=== PATIENT | female | born 1960 | race Caucasian/White ===

== ENCOUNTER → 2018-02-28 08:52 | Outpatient (CLI) | payer BC, SELFPAY ==
--- NOTE | 2018-02-28 09:00 | US_ITS ---
US extremity RT limited CLINICAL INDICATION: ITS.REASON: RT AXILLARY MASS ORDERING PHYSICIAN: Marylu Jeter PATIENT AGE: 57 years Comparison: None FINDINGS: Ultrasound performed of the palpable left amount in right axillary region demonstrating a 4 mm subcutaneous cystic area with enhanced through transmission of sound. This is nonspecific. No other significant anomalies are evident. IMPRESSION: Small subcutaneous cystic lesion corresponding to the palpable abnormality in the right breast measuring 4 mm
== END ==
PROVIDERS: Family Provider Family Medicine; PCP Nurse Practitioner Family; Visit Provider Nurse Practitioner Family
DX: R22.31 Localized swelling, mass and lump, right upper limb (principal)
CPT/HCPCS: 76882

== ENCOUNTER → 2018-08-30 07:27 | Outpatient (CLI) | payer BC, SELFPAY ==
[2018-08-30 08:35] LABS: Basophils # 0.1 K/mm3 (0-0.2); Basophils % 0.9 % (0.1-2.0); Eosinophils # 0.1 K/mm3 (0.0-0.4); Eosinophils % 1.7 % (0.1-12.0); Hematocrit 49.9 % (37.0-47.0); Hemoglobin 16.4 g/dL (12.2-16.2); Lymphocytes # 1.8 K/mm3 (0.7-4.5); Lymphocytes % 23.9 % (10-50); Mean Corpuscular HGB Conc 32.8 g/dL (31.8-35.4); Mean Corpuscular Hemoglobin 30.9 pg (27.0-31.2); Mean Corpuscular Volume 94.2 fl (81-99); Monocytes # 0.5 K/mm3 (0.1-1.0); Monocytes % 6.9 % (1.7-9.3); Neutrophils % 66.7 % (37.0-80.0); Platelet Count 284 K/mm3 (142-424); Red Cell Distribution Width 12.9 % (11.5-17.5); White Blood Count 7.5 K/mm3 (4.8-10.8)
[2018-08-30 10:32] LABS: Alanine Aminotransferase 49 U/L (12-78); Albumin Level 4.1 gm/dL (3.4-5.0); Albumin/Globulin Ratio 1.2 (1.1-1.8); Alkaline Phosphatase 89 U/L (46-116); Anion Gap 15.3 mEq/L (5-15); Aspartate Amino Transferase 31 U/L (15-37); Bilirubin,Total 0.5 mg/dL (0.2-1.0); Blood Urea Nitrogen 13 mg/dL (7-18); Calcium 9.5 mg/dL (8.5-10.1); Carbon Dioxide 24 mmol/L (21.0-32.0); Chloride 104 mmol/L (98-107); Chol/HDL Ratio 3.4 (1-3.5); Cholesterol 242 mg/dL (140-200); Creatinine,Serum 0.76 mg/dL (0.55-1.02); Estimated Glomerular Filt Rate 78 ml/min (>60); Free Thyroxine Index 2.7 ug/dL (5.93-13.13); GFR (African American) 95 ML/MIN (>60); Globulin 3.3 gm/dl (1.3-3.2); Glucose 106 mg/dL (74-106); HDL Cholesterol 71 mg/dL (29-89); LDL Cholesterol 158 mg/dL (0-130); Potassium 4.3 mmoL/L (3.5-5.1); Sodium 139 mmol/L (136-145); T4 (Thyroxine) 8.1 ug/dl (4.7-13.3); Thyroid Stimulating Hormone 0.58 uIU/ml (0.358-3.740); Total Protein,Serum 7.4 gm/dL (6.4-8.2); Triglycerides 64 mg/dL (30-200); Triiodothryronine (T3) Uptake 33 % (31-39); VLDL Cholesterol 13 mg/dL (0-40)
[2018-08-31 11:16] LABS: Vitamin D 25 Hydroxy 21.7 ng/mL (30.0-100.0)
== END ==
PROVIDERS: Visit Provider Nurse Practitioner Obstetrics & Gynecology
DX: Z01.419 Encounter for gynecological examination (general) (routine) without abnormal findings (principal); R53.82 Chronic fatigue, unspecified; E55.9 Vitamin D deficiency, unspecified
CPT/HCPCS: 36415; 80053; 80061; 82652; 84436; 84443; 84479; 85025

== ENCOUNTER → 2018-12-22 16:43 | Outpatient (CLI) | payer BC, SELFPAY ==
--- NOTE | 2018-12-22 16:56 | XR_ITS ---
XR elbow RT min 3V HISTORY: ITS.REASON: RT ELBOW PAIN ORDERING PHYSICIAN: Marylu Jeter APRN PATIENT AGE: 58 years COMPARISON: None FINDINGS: No acute fracture or dislocation. Minimal spurring is present at the distal humerus between the capitellum and trochlea. No displaced fat. . IMPRESSION: Minimal degenerative change, no acute finding
--- NOTE | 2018-12-22 16:56 | XR_ITS ---
XR shoulder LT min 2V HISTORY: ITS.REASON: ACUTE PAIN LT SHOULDER ORDERING PHYSICIAN: Marylu Jeter APRN PATIENT AGE: 58 years Comparison: None FINDINGS: No fracture or dislocation. No lytic or blastic change. There is normal mineralization. Mild osteoarthritic changes are present at the glenohumeral joint. There is some cortical irregularity of the humeral head along the anterior aspect of the greater tuberosity nonspecific but could be seen with rotator cuff disease. IMPRESSION: Mild degenerative change, no acute finding
--- NOTE | 2018-12-22 16:58 | XR_ITS ---
EXAM: XR cervical spine 5V HISTORY: ITS.REASON: UPPER EXTRIMITY WEAKNESS ORDERING PHYSICIAN: Marylu Jeter APRN PATIENT AGE: 58 years COMPARISON: None FINDINGS: Normal alignment. No fracture or dislocation. No lytic or blastic change. No significant degenerative change. The disc spaces are preserved. No foraminal narrowing. There is minimally longitudinal ligament calcification in the lower cervical spine IMPRESSION: Negative cervical spine
== END ==
PROVIDERS: PCP Nurse Practitioner Family; Visit Provider Nurse Practitioner Family
DX: M25.512 Pain in left shoulder (principal); M25.521 Pain in right elbow; M54.2 Cervicalgia; R29.898 Other symptoms and signs involving the musculoskeletal system
CPT/HCPCS: 72050; 73030; 73080

== ENCOUNTER → 2019-04-20 13:49 | Outpatient (CLI) | payer BC, SELFPAY ==
--- NOTE | 2019-04-20 14:03 | XR_ITS ---
PROCEDURE: XR CHEST 2V CLINICAL HISTORY: MUSCLE STRAIN Pain COMPARISON: CXR CHEST(2 VIEWS-NOT PORTABLE) from 12/20/[address] [facility] [address] CHEST W/O CONTRAST from 04/08/2017 FINDINGS: The cardiomediastinal silhouette and pulmonary vascularity are within normal limits. COPD. Old granulomatous disease No acute bony abnormalities. IMPRESSION: No acute findings. Dictated by: Ben Rose MD 04/20/2019 16:05 Signed by: <Electronically signed by Ben Rose MD in [place]> 04/20/2019 16:05
== END ==
PROVIDERS: PCP Nurse Practitioner; Visit Provider Nurse Practitioner
DX: S29.011A Strain of muscle and tendon of front wall of thorax, initial encounter (principal); T14.8XXA Other injury of unspecified body region, initial encounter
CPT/HCPCS: 71046

== ENCOUNTER → 2019-06-29 14:34 | Outpatient (CLI) | payer BC, SELFPAY ==
[2019-06-29 14:52] LABS: Basophils # 0.1 K/mm3 (0-0.2); Basophils % 0.4 % (0.1-2.0); Eosinophils # 0.1 K/mm3 (0.0-0.4); Eosinophils % 0.8 % (0.1-12.0); Hematocrit 41.7 % (37.0-47.0); Hemoglobin 14.4 g/dL (12.2-16.2); Lymphocytes # 2.4 K/mm3 (0.7-4.5); Lymphocytes % 17.6 % (10-50); Mean Corpuscular HGB Conc 34.6 g/dL (31.8-35.4); Mean Corpuscular Volume 92.7 fl (81-99); Mean Platelet Volume 7.7 fl (7.4-10.4); Monocytes # 0.7 K/mm3 (0.1-1.0); Monocytes % 5.2 % (1.7-9.3); Neutrophils # 10.5 K/mm3 (1.8-7.8); Platelet Count 293 K/mm3 (142-424); Red Cell Distribution Width 12.7 % (11.5-17.5); White Blood Count 13.9 K/mm3 (4.8-10.8)
[2019-06-29 14:54] LABS: Blood Urea Nitrogen 12 mg/dL (7-18); Creatinine,Serum 0.64 mg/dL (0.55-1.02); Estimated Glomerular Filt Rate 96 ml/min (>60); GFR (African American) 116 ML/MIN (>60)
--- NOTE | 2019-06-29 15:01 | CT_ITS ---
PROCEDURE: CT SOFT TISSUE NECK WO/W CON CLINICAL HISTORY: throat pain- enlarged salivary gland Bilateral jaw all and throat pain, enlarged salivary gland COMPARISON: No exams were available for comparison TECHNIQUE: Oral Contrast: 75ml Optiray 350 IV Contrast: None Axial images obtained with sagittal and coronal reformats. All CT scans at the facility use one or more dose reduction, viz: automated exposure control, ma/kV adjustment per patient size (including targeted exams where dose is matched to indication, i.e. head), or iterative reconstruction technique. FINDINGS: No obvious nasopharyngeal hypo pharyngeal or or pharyngeal mass. The epiglottis and glottic region have an unremarkable appearance. There is mild prominence of the mucosa bilaterally at the nasopharyngeal area and may be due to mild lymphoid hyperplasia. There is a small area of air density in the left parapharyngeal region at the junction of the nasopharynx and oral pharynx and may be due to small diverticulum. An abscess is felt to be less likely as there are no inflammatory changes at this region. Follow-up suggested to confirm stability. Scattered small nodes are present in the neck with no dominant adenopathy. The parotid glands and salivary glands have an unremarkable appearance mid. No obvious sialolith. Several small nodules are present in the thyroid gland on both sides. These are less than 1 cm. Upper thoracic images show centrilobular emphysema. IMPRESSION: 1. Small air collection in the left parapharyngeal region medial to to the medial pterygoid muscle which could be due to small diverticulum of the pharynx. Follow-up suggested to confirm stability. An abscess is felt to be less likely as there is no underlying inflammatory change. 2. Centrilobular emphysema in upper chest. Dictated by: Ben Rose MD 07/03/2019 06:56 Electronically signed by Ben Rose MD in [place] 07/03/2019 06:56
== END ==
PROVIDERS: PCP Nurse Practitioner Family; Visit Provider Otolaryngology
DX: K11.1 Hypertrophy of salivary gland (principal); R07.0 Pain in throat
CPT/HCPCS: 36415; 70492; 82565; 84520; 85025; Q9967

== ENCOUNTER → 2019-07-12 13:46 | Outpatient (CLI) | payer BC, SELFPAY ==
--- NOTE | 2019-07-12 13:50 | XR_ITS ---
PROCEDURE: XR RIBS LT MIN 3V W CXR1V CLINICAL INDICATION: LT RIB PAIN COMPARISON: CXR CHEST(2 VIEWS-NOT PORTABLE) from 12/20/[address] [facility] [address] CHEST W/O CONTRAST from 04/08/2017 XR CHEST 2V from 04/20/2019 FINDINGS: A frontal view of the chest shows no acute finding. There is evidence of old granulomatous disease. Multiple views of the left ribs show no acute fracture or dislocation. No lytic or blastic change. IMPRESSION: No acute findings. Dictated by: Ben Rose MD 07/12/2019 14:16 Electronically signed by Ben Rose MD in [place] 07/12/2019 14:16
--- NOTE | 2019-07-12 13:50 | XR_ITS ---
PROCEDURE: XR THORACIC SPINE 3V CLINICAL INDICATION: RT SIDE THORACIC PAIN COMPARISON: [facility] CT CHEST W/O CONTRAST from 04/08/2017 FINDINGS: There is mild thoracic kyphosis with mild multilevel wedge compression changes from T7 to T12 with multilevel degenerative disc disease and endplate hypertrophic change. No acute fracture or dislocation evident. The kyphosis and mild multilevel wedging has slightly increased since 04/08/2017. No lytic or blastic change. IMPRESSION: Kyphosis with multilevel degenerative changes with mild wedging of the lower thoracic vertebral bodies. MRI may provide further evaluation to determine if the wedging is acute upon chronic Dictated by: Ben Rose MD 07/12/2019 14:15 Electronically signed by Ben Rose MD in [place] 07/12/2019 14:15
== END ==
PROVIDERS: PCP Nurse Practitioner Family; Visit Provider Nurse Practitioner Family
DX: M54.6 Pain in thoracic spine (principal); R07.81 Pleurodynia
CPT/HCPCS: 71101; 72072

== ENCOUNTER → 2019-07-23 14:57 | Outpatient (CLI) | payer BC, SELFPAY ==
--- NOTE | 2019-07-23 15:00 | MR_ITS ---
PROCEDURE: MR THORACIC SPINE WO CON CLINICAL INDICATION: CLOSED WEDGE FX OF THORACIC VERTEBRA Right-sided mid back pain COMPARISON: XR THORACIC SPINE 3V from 07/12/2019 TECHNIQUE: Routine multiplanar multi echo sequences are performed without gadolinium enhancement. FINDINGS: There is kyphosis of the thoracic spine. There is decrease in height anteriorly of T7, T8, T9, T10, and T11. There is no evidence of acute compression fracture. There is slight increase in T2 signal along the inferior and anterior endplate of T10 however, this does not have typical appearance for a compression fracture and is consistent with type 2 endplate changes. There is mild multilevel degenerative disc disease from T7-T12. no bony destructive process. There is very minimal left paracentral disc protrusion at T9-T10 and may be due to small osteophyte. Minimal bulging of the disc noted at T10-T11. No extruded herniated disc evident. No paraspinal mass. IMPRESSION: 1. No acute fracture. 2. Degenerative changes in the lower thoracic spine with mild kyphosis. Please see above for detail Dictated by: Ben Rose MD 07/24/2019 14:37 Electronically signed by Ben Rose MD in [place] 07/24/2019 14:37
== END ==
PROVIDERS: PCP Nurse Practitioner Family; Visit Provider Nurse Practitioner
DX: S22.000A Wedge compression fracture of unspecified thoracic vertebra, initial encounter for closed fracture (principal)
CPT/HCPCS: 72146

== ENCOUNTER → 2019-09-19 08:21 | Outpatient (CLI) | payer BC, SELFPAY ==
--- NOTE | 2019-09-19 08:36 | US_ITS ---
PROCEDURE: US ABDOMEN LIMITED CLINICAL INDICATION: EPIGASTRIC PAIN,ABD PAIN COMPARISON: No exams were available for comparison FINDINGS: PANCREAS: Unremarkable. No obvious mass or abnormal fluid collection. No ductal dilatation LIVER: No focal liver lesions demonstrated. Homogeneous echogenicity. No intrahepatic biliary ductal dilatation evident. There is appropriate direction of blood flow within a non dilated portal vein RIGHT KIDNEY: Unremarkable. Normal size and echogenicity. No hydronephrosis GALLBLADDER: No gallstones, gallbladder wall thickening, pericholecystic fluid, or biliary dilatation. IMPRESSION: Unremarkable limited abdominal ultrasound as detailed above disc Dictated by: Ben Rose MD 09/19/2019 17:04 Electronically signed by Ben Rose MD in [place] 09/19/2019 17:04
== END ==
PROVIDERS: PCP Nurse Practitioner Family; Visit Provider Nurse Practitioner
DX: R10.13 Epigastric pain (principal); R10.11 Right upper quadrant pain
CPT/HCPCS: 76705

== ENCOUNTER → 2020-02-22 08:58 | Outpatient (CLI) | payer BC, SELFPAY ==
--- NOTE | 2020-02-22 09:01 | XR_ITS ---
PROCEDURE: XR HIP RT 2-3V W/PELVIS CLINICAL INDICATION: INJURY OF RT HIP 3 weeks ago, still having PAIN COMPARISON: No exams were available for comparison FINDINGS: No fracture or dislocation is evident. There is moderate spurring of the greater trochanter bilaterally. There is no significant joint space narrowing of either hip. The SI joints and symphysis pubis appear normal. Metallic brackets and pedicle screws are seen fusing L4 and L5. IMPRESSION: No acute findings and no significant degenerate changes, spurring of the greater trochanter right hip slightly more prominent than greater trochanter left hip Dictated by: Dr. Demarco Navarro MD 02/22/2020 09:[address] Demarco Navarro MD in [place] 02/22/2020 09:34
== END ==
PROVIDERS: PCP Nurse Practitioner Family; Visit Provider Nurse Practitioner Family
DX: S79.911A Unspecified injury of right hip, initial encounter (principal)
CPT/HCPCS: 73502

== ENCOUNTER → 2020-03-20 15:10 | Outpatient (CLI) | payer OTHER, SELFPAY ==
--- NOTE | 2020-03-20 15:12 | MR_ITS ---
PROCEDURE: MR HIP RT WO CON CLINICAL INDICATION: evaluate for hip injury Right-sided groin pain that radiates to the knee x< 2 months. COMPARISON: No exams were available for comparison TECHNIQUE: Routine multiplanar multi echo sequences are performed without gadolinium enhancement. FINDINGS: The examination demonstrate T2 weighted high signal abnormality in the muscle of the right groin, likely in the pectineus muscle, consistent with muscle strain/partial tear. The muscles and their tendinous insertions are otherwise appear intact. The iliofemoral and pupil femoral ligaments are unremarkable. The acetabular labrum is unremarkable. The osseous structures demonstrate no evidence of fracture or dislocation. There is mild/moderate degenerative bilateral hip osteoarthrosis. Bone marrow signal is unremarkable. There is possible mild bilateral trochanteric bursitis with high signal small fluid collection adjacent to the greater trochanters. IMPRESSION: 1. Right groin muscle strain/partial tear, possibly right pectineus muscle. 2. Mild/moderate bilateral hip osteoarthrosis. 3. Possible mild bilateral trochanteric bursitis. Dictated by: Connie Lewis 03/20/2020 16:58 Electronically signed by Connie Lewis in [place] 03/20/2020 16:58
== END ==
PROVIDERS: PCP Nurse Practitioner Family; Visit Provider Orthopaedic Surgery
DX: S79.911A Unspecified injury of right hip, initial encounter (principal)
CPT/HCPCS: 73721

== ENCOUNTER 2020-06-10 17:01 | Emergency (ER) | payer BC, SELFPAY ==
[2020-06-10 17:02] VITALS: BP 136/85; PULSE 68; RESP 16; TEMP 36.8; O2SAT 98; BMI 26.5
--- NOTE | 2020-06-10 18:04 | HMH.EDUTC ---
[facility] Disposition Clinical Impression: Exposure to COVID-19 virus Disposition: Home, Self-Care Condition on Discharge: Good Instructions: Preventing the Spread of Coronavirus Discharge Instructions Additional Instructions: Drink plenty of fluids. Take tylenol for pain or fever. Follow up with your regular doctor. GO TO THE ER FOR ANY WORSENING SYMPTOMS FOLLOW THE DIRECTIONS ON THE COVID-19 HAND OUT THAT WE GAVE YOU REGARDING SELF-ISOLATION UNTIL YOU KNOW YOUR COVID-19 RESULTS Referrals: Marylu Jeter APRN [Primary Care Provider] - Forms: Work/School Release Time of Disposition: 18:09 Medical Decision Making - Medical Records Medical records reviewed: No: I reviewed the patient's medical records. - Nigel Inquiry Pt receiving controlled substance: No Vital Signs: 06/10/20 17:02 06/10/20 18:19 Temperature 98.2 F 98.2 F Temperature Source Oral Oral Pulse Rate 68 Pulse Rate [Left Radial] 68 Respiratory Rate 16 16 Blood Pressure 136/85 Blood Pressure [Right Arm] 136/85 Blood Pressure Mean [Right Arm] 102 Blood Pressure Source Automatic Cuff Blood Pressure Source [Right Arm] Automatic Cuff Blood Pressure Position Sitting Blood Pressure Position [Right Arm] Sitting 02 Sat by Pulse Oximetry 98 Oxygen Delivery Method Room Air Room Air Orders (Tests/Meds): ORDERS Category Date Time Status Covid-19 Nasal PCR ([facility]) Routine Lab 06/10/20 17:29 Received [facility] [place] HPI - General Stated complaint: wants COVID test Time Seen by Provider: 06/10/20 18:05 Mode of Arrival: Ambulatory Source of Information: Patient Limitations: No Limitations Description of Symptoms (Recalled from Triage Doc. by RN): c/o headache today and exposure to covid a week ago HEENT Symptoms (Recalled from RN notes): Yes Resp Symptoms (Recalled from RN notes): No Skin Symptoms (Recalled from RN notes): No MS Symptoms (Recalled from RN notes): No Functional Status (Recalled from RN notes): wnl - History of Present Illness Provider Complaint: She states that she was exposed to covid around 1 week ago. Today she started having a mild headache. She denies any other complaints. - Related Data Home Medications Medication Instructions Recorded Confirmed diclofenac sodium 75 mg PO 10/08/19 06/06/20 tablet,delayed release omeprazole 40 mg capsule,delayed PO 10/08/19 06/06/20 release Previous Rx's Medication Instructions Recorded Famotidine [Pepcid 20mg Tablet] 20 mg PO BID #30 tab 09/09/19 Sucralfate [Carafate 1gm Tab] 1 gm PO ACHS #60 tab 09/09/19 Allergies Allergy/AdvReac Type Severity Reaction Status Date / Time codeine [CODEINE] Allergy Unknown NA-NAUSEA/V Verified 06/06/20 11:59 OMITING green pepper [GREEN PEPPER] Allergy Unknown DIARRHEA Verified 06/06/20 11:59 - Worker's Comp Is this a Worker's Comp case?: No [facility] History - Hepatitis A Screen Drug use history?: No High risk sexual behaviors?: No History of sexually transmitted infection?: No Currently employed?: No Childcare worker?: No Do you have indoor plumbing?: Yes Do you have electricity?: Yes Attestation statement:: This patient has been screened for Hepatitis A risk factors. I have reviewed the patient's past medical history: Yes Medical History: Reports:: Anxiety, Depression Denies:: Diabetes Mellitus Type 1, Diabetes Mellitus Type 2 Other Surgeries: Yes: Colonoscopy, , Diagnostic Lap, Other Amputation: No Fractures: No - Social History Smoking Status: Former smoker Alcohol Intake: never Alcohol Intake Frequency:: other Substance Use Type: denies use Occupational Status: employed - Psychiatric History Pschychiatric History:: Reports:: Anxiety, Depression Family Hx:: No significant family history ROS Obtained: Yes All systems reviewed & no additional complaints - Constitutional Constitutional: Reports system reviewed and no additional complaints, except as docu, Denies
[2020-06-10 18:19] VITALS: BP 136/85; PULSE 68; RESP 16; TEMP 36.8; O2SAT 98
== END 2020-06-10 18:21 | disposition home or self-care (01) ==
PROVIDERS: Emergency Provider Nurse Practitioner Family; PCP Nurse Practitioner Family
DX: Z20.828 Contact with and (suspected) exposure to other viral communicable diseases (principal); R51.9 Headache, unspecified; F41.8 Other specified anxiety disorders; Z88.5 Allergy status to narcotic agent
CPT/HCPCS: 99201; U0003

== ENCOUNTER → 2020-07-02 10:36 | Outpatient (CLI) | payer BC, SELFPAY ==
--- NOTE | 2020-07-02 10:44 | XR_ITS ---
PROCEDURE: XR LUMBAR SPINE MIN 4V CLINICAL INDICATION: five views, weightbearing COMPARISON: No exams were available for comparison FINDINGS: Mild dextroscoliosis. Postsurgical changes with inter pedicular screws at L5 and S1. There is degenerative disc disease at L5-S1 with a disc spacer. Mild degenerative disc disease noted also at L4-5. There is degenerative disc disease disease also at T12-L1 and L1-L2. Bony hypertrophy is present posteriorly at L5-S1 from the prior fusion. Generalized vascular calcification is noted. Other findings:None. IMPRESSION: Postsurgical changes. Mild degenerative changes. No acute finding. Dictated by: Ben Rose MD 07/02/2020 14:35 Ben Rose MD in [place] 07/02/2020 14:35
== END ==
PROVIDERS: PCP Nurse Practitioner Family; Visit Provider Orthopaedic Surgery
DX: M54.5 Low back pain (principal)
CPT/HCPCS: 72110

== ENCOUNTER 2020-07-03 17:30 | Outpatient (RCR) | payer BC, OTHER, SELFPAY ==
--- NOTE | 2020-04-23 18:12 | HMH.PTOPEV ---
PT Outpatient Evaluation Rehab PT Outpatient Evaluation Start: 04/23/20 17:10 Freq: Status: Active Protocol: Document 04/23/20 17:40 AICHACARMEN (Rec: 04/23/20 18:12 ADITYA [id number]) Electronically Signed By Ramirez Bond, PT 04/23/20 17:40 Outpatient Therapy Subjective History Subjective History This is [facility] Physical Therapy evaluation for Shannon Adler. Pt is a 59 y/o female referred to PT for c/o R groing, hip and thigh pain. Pt reports original injury occurred on 01/31/20. PT REPORTS SHE WAS OUTSIDE DOING YARDWORK AND LANDSCAPING WITH HER DOG ON A CHAIN IN THE FRONT YARD. pT REPORTS NEIGHBORS DOG GOT OFF restraints and came into her yard and attacked her dog. Pt reports he rushed to her dog and picked dog up and the dogs. Pt reports later that day she began having pain in her R groin area. Pt reports she has had continued pain in that area and increased pain into R thigh, R lateral hip, and tail bone. Chief Complaint Pain Symptom Type Sharp,Stabbing,Shooting Symptoms Relieved By Rest/Positioning,OTC Meds Prior Functional Limitations None Current Functional Limitations Driving,Squatting,Recreation Activity Symptom Description Intermittent Level of pain today (0-10) 3 Pain scale - at its best (0-10) 0 Pain scale - at its worst (0-10) 10 Hip/Knee Eval Gait Observation General Gait Pattern Observation Antalgic Gait Assistive Device Assistive Devices None / NA Palpation Tenderness right Hip Palpation Findings Tenderness,Muscle Guarding MMT Hip Flexion Strength Grade 4 Good Hip Abduction Strength Grade 5 Normal Hip Adduction Strength Grade 5 Normal Hip Extension Strength Grade 5 Normal Hip External Rotation Strength Grade 4 Good Hip Internal Rotation Strength Grade 4 Good Knee Extension Strength Grade 4 Good Knee Flexion Strength Grade 5 Normal ROM Hip ROM Limitations Soft Tissue Tightness,Pain on Right Hip ROM Reason Not Measured Within Functional Limits Knee ROM Reason No
== END 2020-07-03 17:35 | disposition home or self-care (01) ==
LOC: PT 17:30
PROVIDERS: Visit Provider Orthopaedic Surgery
DX: M25.551 Pain in right hip (principal)
CPT/HCPCS: 20560; 97010; 97033; 97110; 97140; 97163; 97164

== ENCOUNTER → 2020-07-11 13:39 | Outpatient (CLI) | payer BC, SELFPAY ==
--- NOTE | 2020-07-11 13:40 | IR_ITS ---
PROCEDURE: IR FLUORO GUIDED NEEDLE PLACE CLINICAL INDICATION: rt hip pain COMPARISON: No exams were available for comparison FINDINGS: Fluoroscopy: 25 seconds. Procedure the orthopedist. Two images are submitted 1 which is a ethical hacker view and 1 shows contrast injected into the left femoral neck region with extravasation the soft tissues and a small amount of contrast within the hip capsule/joint. There are mild osteoarthritic changes of the right hip. IMPRESSION: Status post right hip injection as described above Dictated by: Ben Rose MD 07/11/2020 14:41 Ben Rose MD in [place] 07/11/2020 14:41
--- NOTE | 2020-07-11 15:39 | HMH.PROC ---
[facility] Procedure Note Procedure Note:: Date of Procedure: July 11, 2020 Pre-procedure diagnosis: degenerative joint disease R hip Post-procedure diagnosis: same Procedure: intraarticular corticosteroid injection R hip Performed by: Lalitha Renee MD Water Purification Chemist/s: none Anesthesia: local; 5cc 1% lidocaine w/o epinephrine Estimated Blood Loss: none History of present illness: 59yo F with persistent pain in the R hip and groin since an injury in August 2019. She has been treated for R hip mild DJD, greater trochanteric bursitis and a right groin muscle strain (seen on MRI). Her pain is predominantly in the right groin at this time and has not improved with physical therapy and several months of icing, stretching, and both Tylenol and NSAIDs. She is having a more difficult time getting on and off the toilet and in and out of the vehicle. She has significant pain first thing in the morning, but this improves with prolonged activity. Her pain increases the longer she stands. No change in her medical history since her last visit and no new orthopedic complaints. The patient has had adequate physical therapy for her groin strain and I feel if this were the sole cause of her pain it should be much improved by now. Her underlying hip arthritis is likely contributing more to her pain at this time. I have recommended an intra-articular corticosteroid injection for both therapeutic and diagnostic purposes. The patient has never had an injection in his hip and is amenable to the procedure. After discussion of the risks of the surgery, including injection site soreness, possible risk of infection, possible increasing hip pain after the procedure; the patient has elected to proceed with the injection. Informed consent was obtained. Procedure Note: The patient presented to the radiology department and changed into a gown, exposing the affected R hip. Consent was reviewed and signed by both myself and the patient, all questions were answered. The patient was placed supine on the fluoroscopy table and the R hip exposed. The anterior groin/hip and proximal thigh were prepped with chlorhexidine. Timeout was performed. Next, the fluoro machine was brought in over the patient?s hip and a picture taken to confirm adequate visualization of the joint. I donned a pair of sterile surgical gloves; the remainder of the procedure was performed in a sterile fashion. A 20G spinal needle was held over the hip to approximate my desired entry point on the skin, on a line between the ASIS and the greater trochanter. Once this was established, a 25G needle was used to infiltrate injection site and estimated needle track with 5cc 1% lidocaine w/o epinephrine. Once the injection site was anesthetized, the spinal needle was advanced through the same puncture site and deeper towards the hip joint, aimed medially at a 30 degree angle. Using fluoro, it was confirmed that the needle was advanced until it was at the level of the femoral neck. The stylus was removed from the spinal needle and 2cc of iodinated contrast solution was injected through the spinal needle. Fluoro was taken again, and the dye confirmed intra-capsular placement of the spinal needle, indicating a successful intraarticular injection. The syringe with contrast was removed, keeping the spinal needle in place, and 40mg Kenalog with 2cc 1% lidocaine w/o epinephrine was injected through the needle into the hip joint. A final fluoro picture was taken, confirming successful intraarticular injection. The spinal needle was removed from the hip and a band-aid was placed over the injection site. Specimens: none Condition/Disposition: good / home Complications: none Triamcinolone Acetonide, 40mg/1mL Lot #[id number] Exp: 01/2022
== END ==
PROVIDERS: PCP Nurse Practitioner; Visit Provider Orthopaedic Surgery
DX: M16.11 Unilateral primary osteoarthritis, right hip (principal); Z88.5 Allergy status to narcotic agent; Z79.899 Other long term (current) drug therapy; M70.61 Trochanteric bursitis, right hip
CPT/HCPCS: 20610; 77002; Q9967

== ENCOUNTER → 2020-07-23 11:17 | Outpatient (CLI) | payer BC, SELFPAY ==
[2020-07-23 11:45] LABS: Basophils # 0.1 K/mm3 (0-0.2); Basophils % 0.4 % (0.1-2.0); Eosinophils # 0.2 K/mm3 (0.0-0.4); Eosinophils % 1.4 % (0.1-12.0); Hematocrit 46.9 % (37.0-47.0); Hemoglobin 15.8 g/dL (12.2-16.2); Lymphocytes # 1.6 K/mm3 (0.7-4.5); Lymphocytes % 13.8 % (10-50); Mean Corpuscular HGB Conc 33.7 g/dL (31.8-35.4); Mean Corpuscular Hemoglobin 31.1 pg (27.0-31.2); Mean Corpuscular Volume 92.5 fl (81-99); Mean Platelet Volume 8.2 fl (7.4-10.4); Monocytes # 0.5 K/mm3 (0.1-1.0); Monocytes % 4.3 % (1.7-9.3); Neutrophils # 9.4 K/mm3 (1.8-7.8); Neutrophils % 80.1 % (37.0-80.0); Platelet Count 293 K/mm3 (142-424); Red Blood Count 5.06 M/mm3 (4.20-5.40); Red Cell Distribution Width 12.9 % (11.5-17.5); White Blood Count 11.8 K/mm3 (4.8-10.8)
[2020-07-23 13:15] LABS: Chloride 105 mmol/L (98-107); Potassium 4.5 mmoL/L (3.5-5.1); Sodium 139 mmol/L (136-145)
[2020-07-23 13:17] LABS: Alanine Aminotransferase 23 U/L (12-78); Aspartate Amino Transferase 28 U/L (14-36); Blood Urea Nitrogen 12 mg/dl (7-17); Estimated Glomerular Filt Rate 74 ml/min (>60); GFR (African American) 89 ML/MIN (>60)
[2020-07-23 13:18] LABS: Albumin Level 4.7 g/dl (3.5-5.0); Alkaline Phosphatase 92 U/L (38-126); Anion Gap 9.5 mEq/L (5-15); Bilirubin,Total 0.6 mg/dl (0.2-1.3); Calcium 10.3 mg/dl (8.4-10.2); Carbon Dioxide 29 mmol/L (22.0-30.0); Chol/HDL Ratio 3.5 (1-3.5); Cholesterol 239 mg/dl (140-200); Globulin 2.4 g/dL (1.3-3.2); Glucose 112 mg/dl (74-100); HDL Cholesterol 68 mg/dl (40-60); Total Protein,Serum 7.1 g/dl (6.3-8.2); Triglycerides 95 mg/dl (30-150); VLDL Cholesterol 19 mg/dL (0-40)
[2020-07-23 13:29] LABS: Direct LDL Cholesterol 116.42 mg/dL (100-129)
== END ==
PROVIDERS: Visit Provider Nurse Practitioner Obstetrics & Gynecology
DX: Z01.419 Encounter for gynecological examination (general) (routine) without abnormal findings (principal)
CPT/HCPCS: 36415; 80053; 80061; 85025

== ENCOUNTER 2020-08-20 10:50 | Emergency (ER) | payer BC, SELFPAY ==
[2020-08-20 11:00] VITALS: BP 121/81; PULSE 81; RESP 20; TEMP 37.1; O2SAT 98; BMI 26.5
--- NOTE | 2020-08-20 11:12 | HMH.EDUTC ---
[facility] [place] Disposition Clinical Impression: Exposure to COVID-19 virus Disposition: Home, Self-Care Condition on Discharge: Good Instructions: DI for COVID-19 (Suspected or Confirmed ), COVID-19: Testing and Tracing, Preventing the Spread of Coronavirus Discharge Instructions, DI for Cough -- Adult, DI for Headache Additional Instructions: *Monitor Temp, Over the counter Motrin or Tylenol as directed/as needed Tylenol every 4 hours and Motrin every 6 hours (as long as your family doctor has told you that you can take it) for fever or pain. and straight to ER if unable to lower temp less than 101.0 after medication given *Warm salt water gargles may help to soothe the throat *Throat Lozenges *Warm fluids like tea with honey may help to soothe the throat *Sleep elevated *Humidifier/Vaporizer *Flonase 2 sprays in each nostril daily but be aware that it may take 2-3 days before you notice improvement Follow up IMMEDIATELY for new or worsening symptoms or no Noticeable improvement over the next 48-72 hours. 911 for difficulty breathing or swallowing You were tested for today for COVID19 your test result should be back in the next 24-48 hours, you may call to the [facility] to see if your test results are back in the next 48 hours [phone] [facility] hours are 9am-9pm You was given a handout with instructions for Self Quarantine and Self isolation for while you wait on test results and what to do if they are positive If you are positive the Health Dept will be contacting you also Prescriptions: Fluticasone Propionate [Flonase 50mcg nasal spray 16gm] 1 spr NS DAILY #1 bottle Transmission Status: Pending to [facility] # Benzonatate [Tessalon Perle 100mg Cap*] 100 mg PO TID PRN #15 cap PRN Reason: Cough Transmission Status: Pending to [facility] # Referrals: Marylu Jeter APRN [Primary Care Provider] - As needed Forms: Work/School Release Time of Disposition: 11:17 Medical Decision Making - Nigel Inquiry Pt receiving controlled substance: No Nigel was queried for this patient: No Vital Signs: 08/20/20 11:00 Temperature 98.7 F Temperature Source Oral Pulse Rate [Right Brachial] 81 Respiratory Rate 20 Blood Pressure [Right Arm] 121/81 Blood Pressure Mean [Right Arm] 94 Blood Pressure Source [Right Arm] Automatic Cuff Blood Pressure Position [Right Arm] Sitting 02 Sat by Pulse Oximetry 98 Oxygen Delivery Method Room Air Orders (Tests/Meds): ORDERS Category Date Time Status Covid-19 Nasal PCR Sendout P&C Stat Lab 08/20/20 11:05 Received [facility] HPI - General Stated complaint: exposure to covid,headache,lighheaded Time Seen by Provider: 08/20/20 11:12 Mode of Arrival: Ambulatory Source of Information: Patient Limitations: No Limitations Description of Symptoms (Recalled from Triage Doc. by RN): PATIENT REQUESTING COVID TEST D/T EXPOSURE; C/O HEADACHE, SOA, AND LIGHTHEADED SINCE TUESDAY HEENT Symptoms (Recalled from RN notes): Yes Resp Symptoms (Recalled from RN notes): No Skin Symptoms (Recalled from RN notes): No MS Symptoms (Recalled from RN notes): No Functional Status (Recalled from RN notes): WNL - History of Present Illness Provider Complaint: Patient states that she was recently around her son that tested positive for COVID States that she has been feeling achy all over, sore scratchy throat, headache cough and at times feels like she is a little light headed Denies feeling of passing out Denies changes in vision States that she works at the [employer] and wanted to get tested for COVID - Related Data Home Medications Medication Instructions Recorded Confirmed omeprazole 40 mg capsule,delayed PO 10/08/19 08/07/20 release Previous Rx's Medication Instructions Recorded Benzonatate [Tessalon Perle 100mg 100 mg PO TID PRN #15 cap 08/20/20 Cap*] Fluticasone Propionate [Flonase 1 spr NS DAILY #1 bottle 08/20/20 50mcg nasal spray 16gm] Allergies Aller
[2020-08-20 11:19] VITALS: BP 121/81; PULSE 81; RESP 20; TEMP 37.1; O2SAT 98
[2020-08-21 12:05] LABS: Covid-19 Nasal PCR Sendout P&C Negative
== END 2020-08-20 11:25 | disposition home or self-care (01) ==
PROVIDERS: Emergency Provider Nurse Practitioner; PCP Nurse Practitioner Family
DX: Z20.828 Contact with and (suspected) exposure to other viral communicable diseases (principal); F41.8 Other specified anxiety disorders; Z88.5 Allergy status to narcotic agent
CPT/HCPCS: 99201; U0004

== ENCOUNTER → 2020-10-28 12:47 | Outpatient (CLI) | payer BC, SELFPAY ==
--- NOTE | 2020-10-28 12:47 | CT_ITS ---
PROCEDURE: CT CHEST WO CON CLINICAL INDICATION: FAMILY HISTORY OF LUNG CANCER C/o chest pain bilateral axilla area COMPARISON: CT WO CT CHEST W/O CONTRAST from 04/08/2017 TECHNIQUE: Axial images obtained with sagittal and coronal reformats. All CT scans at the facility use one or more dose reduction, viz: automated exposure control, ma/kV adjustment per patient size (including targeted exams where dose is matched to indication, i.e. head), or iterative reconstruction technique. FINDINGS: HEART AND MEDIASTINAL STRUCTURES: The thyroid gland is enlarged bilaterally with heterogeneous density. Scattered small nodes are present in the mediastinum unchanged. There are coronary artery calcifications present. LUNGS AND PLEURAL SPACES: COPD with centrilobular emphysema. Calcified granuloma is present in the lingula. No suspicious nodules. No effusions or infiltrates. There is mild bronchial thickening. BONY STRUCTURES: No acute bony abnormalities apparent. UPPER ABDOMEN: Unremarkable. ADDITIONAL FINDINGS: No other significant abnormalities. IMPRESSION: 1. COPD with centrilobular emphysema and scattered areas of scarring with evidence of old granulomatous disease. 2. No change with no acute finding. Dictated by: Ben Rose MD 10/30/2020 15:46 Ben Rose MD in [place] 10/30/2020 15:46
[2020-10-28 13:40] LABS: Basophils % 0.4 % (0.1-2.0); Eosinophils # 0.2 K/mm3 (0.0-0.4); Eosinophils % 1.6 % (0.1-12.0); Hematocrit 44.1 % (37.0-47.0); Hemoglobin 14.4 g/dL (12.2-16.2); Lymphocytes # 2.1 K/mm3 (0.7-4.5); Lymphocytes % 20.5 % (10-50); Mean Corpuscular HGB Conc 32.7 g/dL (31.8-35.4); Mean Corpuscular Hemoglobin 30.6 pg (27.0-31.2); Mean Corpuscular Volume 93.7 fl (81-99); Monocytes # 0.6 K/mm3 (0.1-1.0); Monocytes % 5.7 % (1.7-9.3); Neutrophils # 7.3 K/mm3 (1.8-7.8); Neutrophils % 71.8 % (37.0-80.0); Platelet Count 254 K/mm3 (142-424); Red Blood Count 4.71 M/mm3 (4.20-5.40); Red Cell Distribution Width 13.2 % (11.5-17.5); White Blood Count 10.1 K/mm3 (4.8-10.8)
[2020-10-28 14:10] LABS: Chloride 106 mmol/L (98-107); Potassium 4.8 mmoL/L (3.5-5.1); Sodium 140 mmol/L (136-145)
[2020-10-28 14:13] LABS: Alanine Aminotransferase 37 U/L (12-78); Albumin Level 4.4 g/dl (3.5-5.0); Albumin/Globulin Ratio 1.7 (1.1-1.8); Alkaline Phosphatase 91 U/L (38-126); Anion Gap 10.8 mEq/L (5-15); Aspartate Amino Transferase 37 U/L (14-36); Bilirubin,Total 0.3 mg/dl (0.2-1.3); Blood Urea Nitrogen 14 mg/dl (7-17); Calcium 9.7 mg/dl (8.4-10.2); Carbon Dioxide 28 mmol/L (22.0-30.0); Estimated Glomerular Filt Rate 86 ml/min (>60); GFR (African American) 104 ML/MIN (>60); Globulin 2.6 g/dL (1.3-3.2); Glucose 98 mg/dl (74-100)
== END ==
PROVIDERS: PCP Nurse Practitioner Family; Visit Provider Otolaryngology
DX: R59.0 Localized enlarged lymph nodes (principal); Z80.1 Family history of malignant neoplasm of trachea, bronchus and lung; I88.9 Nonspecific lymphadenitis, unspecified
CPT/HCPCS: 36415; 71250; 80053; 85025

== ENCOUNTER → 2020-11-13 15:24 | Outpatient (CLI) | payer BC, SELFPAY ==
--- NOTE | 2020-11-13 15:24 | US_ITS ---
PROCEDURE: US THYROID CLINICAL INDICATION: Thyromegly noted on CT COMPARISON: No exams were available for comparison FINDINGS: Right lobe: 1.8cm x 4.5cm x 2.9cm. 8 x 5 mm mixed nodule in the upper pole with solid and cystic component. Mostly cystic TR 2. 7 mm cyst is present in the mid polar region. 7 x 5 mm mostly cystic nodule in the mid polar region with a small central hyperechoic focus. Spongiform nodule lower pole at 7 mm. Left lobe: 1.7cm x 4.4cm x 2.2cm. 4 mm hypoechoic nodule mid polar region new Isthmus: Mildly thickened at 5 mm Additional findings: IMPRESSION: Mildly enlarged thyroid with benign-appearing nodules. Dictated by: Ben Rose MD 11/14/2020 05:57 Ben Rose MD in [place] 11/14/2020 05:57
== END ==
PROVIDERS: PCP Nurse Practitioner Family; Visit Provider Otolaryngology
DX: E04.9 Nontoxic goiter, unspecified (principal)
CPT/HCPCS: 76536

== ENCOUNTER → 2020-12-05 17:44 | Outpatient (CLI) | payer BC, SELFPAY | PROVIDERS: PCP Nurse Practitioner Family; Visit Provider Internal Medicine | DX: R06.02 Shortness of breath (principal); R06.83 Snoring; R09.02 Hypoxemia | CPT/HCPCS: G0399 ==

== ENCOUNTER → 2020-12-17 06:23 | Outpatient (CLI) | payer BC, SELFPAY ==
--- NOTE | 2020-12-17 06:39 | NM_ITS ---
APPROVED REPORT Exam: Nuclear Stress Test Indication: short of breath..fatigue Patient Location: Outpatient Stress Tech: Kathleen Kirkpatrick HI Tech:Nora GirardMIN RT(R)(N) Ht: 5 ft 3 in Wt: 152 lbs HR: 71 bpm BP: 112/71 mmHg BSA: 1.72 m2 BMI: 26.9 History: short of breath..fatigue Procedure: Patient received a 0.4 mg of intravenous Lexiscan, resting heart rate 71 bpm, resting blood pressure 112/71 mmHg, with Lexiscan maximum heart rate achived was 111 bpm which is 85 % of the maximum predicted heart rate and blood pressure was 114/75 mmHg. With Lexiscan, patient denied any complaint of chest pain. Electrocardiogram Resting electrocardiogram showed sinus rhythm, with Lexiscan there is less than 1.[address] segment depression noted from the baseline EKG. The EKG portion of the Lexiscan is nondiagnostic. Cardiac Stress and Resting SPECT Images: Cardiac Stress and Resting SPECT images were obtained using technetium 99m Myoview 31.4 mCi stress and 10.44 mCi at rest. Gated SPECT for analysis of segmental wall motion and calculation of the ejection fraction also done. Prone images were also obtained. Cardiac stress and resting SPECT images show uniform myocardial activity without segmental perfusion abnormality, computer derived ejection fraction is 52% with no regional wall motion abnormality, right ventricle is normal size and contractility. Conclusion: 1. The EKG portion of the Lexiscan is nondiagnostic. 2. No scintigraphic evidence of reversible ischemia seen, computer derived ejection fraction is 52% with no regional wall motion abnormality, right ventricle is normal size and contractility. 3. Normal Lexiscan Myoview study. Electronically signed by : Tanner Corbett, 12/18/2020 14:16:39
--- NOTE | 2020-12-17 07:59 | CA_ITS ---
APPROVED REPORT EXAM: Comprehensive 2D, Doppler, and color-flow Echocardiogram Bulk Tank Car Unloader: Cat Aggarwal, RT(R) Ht: 5 ft 3 in Wt: 159lbs BSA: 1.75 BP: 147/80 mmHg Indications: cp, SOB, ex smoker, fatigue, obesity, coronary artery calcification seen on CT scan, JIMENEZ 2D Dimensions LVOT 1.81 cm (M/F) 1.5-2.5 M-Mode Dimensions RVDd 2.22 cm (0.9-2.6) LA Diam 2.35 cm (1.9-4.0) LVDd 5.07 cm (3.5-5.7) Ao Diam 2.29 cm (2.0-3.7) LVDs 3.79 cm (3.5-5.7) IVSd 0.64 cm (0.6-1.1) PWd 0.57 cm (0.6-1.1) EF (Teich) 49.50% FS 25.20% EDV (Teich) 122.10 mL TAPSE 2.26 (<1.7) ESV (Teich) 61.60 mL LV Diastology E Decel Time 210.00 (160-240 msec) E/A Ratio 0.8 MED E' 8.70 (< 7 cm/sec) E'/MED E' Ratio 5.66 (>14) LAT E' 12.10 (<10 cm/sec) E/LAT E' Ratio 4.07 (>14) Mitral Valve MV E Max Yoni. 49.00 (40-130 cm/s) MV A Velocity 64.00 (40-130 cm/s) E/A Ratio 0.77 MV Decel. Time 210.00 (160-240 ms) MV PHT 62.00 ms Left Ventricle Left atrium is normal size, left ventricle is normal size, there is no concentric left ventricular hypertrophy, visually estimated ejection fraction 55% with no regional wall motion abnormality. Diastolic parameters are within normal range. Right Ventricle Right atrium and right ventricle are normal size and contractility. Aortic Valve Aortic valve is minimally thickened and fibrosed, there is no aortic stenosis or aortic insufficiency. Mitral Valve Mitral valve grossly normal, there is trace mitral regurgitation. Tricuspid Valve Tricuspid grossly normal, there is trace tricuspid regurgitation, tricuspid regurgitation jet velocity is inadequate for calculation of the right ventricular systolic pressure. Pulmonic Valve Pulmonic valve is poorly visualized. Great Vessels Aortic root is normal size. Pericardium No significant pericardial effusion noted. Conclusion 1. Normal left ventricular size, preserved left ventricular systolic function, visually estimated ejection fraction 55% with no regional wall motion abnormality, diastolic parameters are within normal range. 2. Trace mitral and tricuspid regurgitation. 3. No significant pericardial effusion noted. Electronically signed by : Tanner Corbett, 12/18/2020 14:52:18
--- NOTE | 2020-12-17 08:47 | CA_ITS ---
APPROVED REPORT Exam: Pharmacologic Technologist: cedric conteh, Ht: 5 ft 3 in Wt: 159 lbs BSA: 1.75 m2 HR: 71 bpm BP: 112/71 mmHg Indications: SOA, CP Medical History Medications: Omeprazole,,,,, Phentermine,,,,, Stress Test Details Test: LEXISCAN HR Resting HR: 75 bpm Max Heart Rate (APMHR): 161.328383 bpm Max HR Achieved: 112 bpm Target HR (85% APMHR): 136.468673 bpm % of APMHR: 69.57 Recovery HR: 76 bpm BP Resting BP: 112/71 mmHg Max BP: 122/76 mmHg Recovery BP: 122.0/76.0 mmHg ECG Resting ECG: NSR, early repolarization Clinical Exercise duration: 04:07 min Highest Stage Achieved: Exercise capacity: 1.0 METs Stress ECG Conclusion SOA, Nausea, malaise. Aching in legs, SOA. Aching in legs continue. Aminophylline 100mg slow IV given. Sxs better. Sxs almost gone. Symptoms: SOA, nausea, malaise, aching in legs. No CP. Arrhythmias/Ectopy: None ST-T Changes: No significant changes. Conclusion: Unremarable Lexiscan stress. Myoview images reported separately. Test Summary REST . . . . . . . Resting REST 04:54 . . 75 . 112/ 71 . . Stage 1 . . . . . . . Myoview Injected Stage 1 01:00 . . 111 . . . . Stage 2 01:00 . . 109 . 114/ 75 . . Stage 3 01:00 . . 105 . . . . Stage 4 01:00 . . 92 . 114/ 70 . . Stage 4 01:07 . . 91 . 114/ 70 . Stop exercise at 04:07 RECOVERY 01:00 . . 108 . 100/ 70 . . RECOVERY 02:00 . . 92 . 100/ 70 . . RECOVERY 03:00 . . 96 . 96/ 69 . . RECOVERY 04:00 . . 94 . 119/ 76 . . RECOVERY 05:00 . . 90 . 119/ 76 . . RECOVERY 06:00 . . 92 . 119/ 76 . . RECOVERY 07:00 . . 77 . 119/ 76 . . RECOVERY 08:00 . . 75 . 122/ 76 . . RECOVERY 09:00 . . 61 . 122/ 76 . . RECOVERY 09:53 . . 68 . 122/ 76 . . Electronically signed by : Tanner Corbett, 12/18/2020 14:10:38
== END ==
PROVIDERS: PCP Nurse Practitioner Family; Visit Provider Urology
DX: R06.00 Dyspnea, unspecified (principal); I25.10 Atherosclerotic heart disease of native coronary artery without angina pectoris
CPT/HCPCS: 78452; 93017; 93306; A9502; J2785

== ENCOUNTER → 2021-01-02 12:09 | Outpatient (CLI) | payer BC, SELFPAY ==
[2021-01-02 14:00] LABS: Free T4 (Free Thyroxine) 1.22 ng/dl (0.78-2.19)
[2021-01-02 14:15] LABS: Thyroid Stimulating Hormone 0.59 uIU/mL (0.465-4.68)
[2021-01-02 14:18] LABS: Ferritin 134 ng/ml (11.1-264)
[2021-01-04 07:08] LABS: Thyroid Peroxidase Antibodies <9 IU/mL (0-34)
[2021-01-04 10:45] LABS: Triiodothyronine (T3) Free 3.5 pg/mL (2.0-4.4)
[2021-01-06 20:56] LABS: Thyroid Stimulating Immunoglob <0.10 IU/L (0.00-0.55)
== END ==
PROVIDERS: Otolaryngology; Visit Provider Specialist
DX: E83.10 Disorder of iron metabolism, unspecified (principal); E01.0 Iodine-deficiency related diffuse (endemic) goiter; E04.9 Nontoxic goiter, unspecified
CPT/HCPCS: 36415; 82728; 84439; 84443; 84445; 84481; 86376

== ENCOUNTER 2021-01-17 13:54 | Emergency (ER) | payer BC, SELFPAY ==
[2021-01-17 14:00] VITALS: BP 130/76; PULSE 64; RESP 17; TEMP 37; O2SAT 97; BMI 26.5
--- NOTE | 2021-01-17 14:15 | XR_ITS ---
PROCEDURE INFORMATION: Exam: XR Right Knee Exam date and time: 01/17/2021 2:15 PM Age: 60 years old Clinical indication: Right; Patient HX: Pain in RT knee, most pain coming from behind knee, PT states that she often feels a popping, no recent in jury TECHNIQUE: Imaging protocol: XR Right knee. Views: 3 views. COMPARISON: CR KNEE3R KNEE-3 VIEWS-RT 11/22/2016 6:04 PM FINDINGS: Bones/joints: There are mild degenerative changes of the knee joint, predominantly involving the medial joint compartment. There is no evidence of acute fracture. There is no evidence of joint malalignment or dislocation. Soft tissues: There are no soft tissue masses or fluid collections. IMPRESSION: 1. There are mild degenerative changes of the knee joint, predominantly involving the medial joint compartment. 2. No evidence of acute fracture. 3. No evidence of acute dislocation.
--- NOTE | 2021-01-17 14:47 | HMH.EDUTC ---
[facility] [place] Disposition Clinical Impression: Yadav's cyst of knee Qualifiers: Laterality: right Qualified Code(s): M71.21 - Synovial cyst of popliteal space [Yadav], right knee Disposition: Home, Self-Care Condition on Discharge: Good Instructions: DI for Yadav Cyst Additional Instructions: follow up with ortho elevated tylenol or motrin as needed Prescriptions: predniSONE [Prednisone 20mg Tab] 20 mg PO BID #10 tab Transmission Status: Pending to [facility] #[id number] Referrals: Marylu Jeter APRN [Primary Care Provider] - Matthias Pardo MD [Staff Physician] - Time of Disposition: 16:22 Medical Decision Making - Nigel Inquiry Pt receiving controlled substance: No Vital Signs: 01/17/21 14:00 Temperature 98.6 F Temperature Source Oral Pulse Rate [Right Brachial] 64 Respiratory Rate 17 Blood Pressure [Right Arm] 130/76 Blood Pressure Mean [Right Arm] 94 Blood Pressure Source [Right Arm] Automatic Cuff Blood Pressure Position [Right Arm] Sitting 02 Sat by Pulse Oximetry 97 Oxygen Delivery Method Room Air [facility] [place] HPI - General Chief complaint: Urgent Treatment Center Stated complaint: right knee pain Time Seen by Provider: 01/17/21 14:47 Mode of Arrival: Ambulatory Source of Information: Patient Limitations: No Limitations Description of Symptoms (Recalled from Triage Doc. by RN): PATIENT C/O EXTREME RIGHT KNEE PAIN X 1 WEEK. STATES KNEE IS SWOLLEN AND HOT TO TOUCH HEENT Symptoms (Recalled from RN notes): No Resp Symptoms (Recalled from RN notes): No Skin Symptoms (Recalled from RN notes): No MS Symptoms (Recalled from RN notes): Yes Functional Status (Recalled from RN notes): WNL - History of Present Illness Provider Complaint: 60 yr old female presents for rt knee,leg pain. pt states no injury but pain and warmth to knee. pt states its hard for her to walk due to pain. - Related Data Home Medications Medication Instructions Recorded Confirmed omeprazole 40 mg capsule,delayed 40 mg PO HS 10/08/19 01/17/21 release Rosuvastatin Calcium 20 mg PO DAILY 01/17/21 01/17/21 Previous Rx's Medication Instructions Recorded predniSONE [Prednisone 20mg 20 mg PO BID #10 tab 01/17/21 Tab] Allergies Allergy/AdvReac Type Severity Reaction Status Date / Time codeine [CODEINE] Allergy Unknown NA-NAUSEA/V Verified 01/02/21 12:55 OMITING green pepper [GREEN PEPPER] Allergy Unknown DIARRHEA Verified 01/02/21 12:55 - Worker's Comp Is this a Worker's Comp case?: No [facility] History - Hepatitis A Screen Drug use history?: No High risk sexual behaviors?: No History of sexually transmitted infection?: No Currently employed?: No Childcare worker?: No Do you have indoor plumbing?: Yes Do you have electricity?: Yes Attestation statement:: This patient has been screened for Hepatitis A risk factors. I have reviewed the patient's past medical history: Yes Medical History: Reports:: Anxiety, Depression Denies:: Diabetes Mellitus Type 1, Diabetes Mellitus Type 2 Other Surgeries: Yes: Colonoscopy, , Diagnostic Lap, Other Amputation: No Fractures: No - Social History Smoking Status: Former smoker Alcohol Intake: never Alcohol Intake Frequency:: other Substance Use Type: denies use Occupational Status: other - Psychiatric History Pschychiatric History:: Reports:: Anxiety, Depression Family Hx:: Cancer ROS Obtained: Yes Systems reviewed as appropriate & no additional complaints - Constitutional Constitutional: Reports system reviewed and no additional complaints, except as docu, Denies fever(s) - Eyes Eyes: Reports system reviewed and no additional complaints, except as docu, Denies change in vision - ENT Ears, Nose, Mouth, and Throat: Reports system reviewed and no additional complaints, except as docu, Denies sore throat - Cardiovascular Cardiovascular: Reports system reviewed and no additional complaints, except as docu, Denies chest pain - R
--- NOTE | 2021-01-17 14:58 | CA_ITS ---
APPROVED REPORT Right Lower Extremity Venous Study for DVT. Nanoelectronics Engineer: Liseth Bales RVT Indications Lower Extremity Pain: Right Lower Extremity Edema: Right swelling,pain,decrease pulse,pain x 1 week Risk Factors History of Smoking Vein Imaging CFV (R): compressive, spontaneous, phasic, augmentation FEM (R): compressive, spontaneous, phasic, augmentation POP (R): compressive, spontaneous, phasic, augmentation PTV (R): Compressible GSV (R): Compressible Peroneals (R):Compressible GAS (R): Compressible Findings Study suggests no evidence of DVT or SVT of the right lower extremity. There is a 6.6 X 4.0 cm complex lesion seen in the right popliteal fossa, probable Yadav's cyst. Conclusion Study suggests no evidence of DVT or SVT of the right lower extremity. There is a 6.6 X 4.0 cm complex lesion seen in the right popliteal fossa, probable Yadav's cyst. Critical Notification Physician Notified Date: 01/17/2021 Time: 16:15 Physician Name: Leobardo Llamas Electronically signed by : Ben Rose MD 01/20/2021 17:35:32
[2021-01-17 16:20] VITALS: BP 130/76; PULSE 64; RESP 17; TEMP 37; O2SAT 97
== END 2021-01-17 16:24 | disposition home or self-care (01) ==
PROVIDERS: Emergency Provider Nurse Practitioner Family; PCP Nurse Practitioner Family
DX: M71.21 Synovial cyst of popliteal space [Baker], right knee (principal); F41.8 Other specified anxiety disorders; M79.661 Pain in right lower leg; Z88.5 Allergy status to narcotic agent
CPT/HCPCS: 73562; 93971; 99202; G0463

== ENCOUNTER → 2021-02-25 13:32 | Outpatient (CLI) | payer BC, SELFPAY ==
--- NOTE | 2021-02-25 13:37 | XR_ITS ---
PROCEDURE: XR KNEE RT 4V CLINICAL INDICATION: RT knee pain COMPARISON: CR KNEE3R KNEE-3 VIEWS-RT from 11/22/2016 CR XR KNEE RT 3V from 01/17/2021 FINDINGS: No fracture or dislocation. No lytic or blastic change. There is normal mineralization. Minimal osteoarthritic changes are present at the medial compartment and patellofemoral joint Other findings:None. IMPRESSION: Minimal osteoarthritic changes unchanged Dictated by: Ben Rose MD 02/25/2021 14:46 Ben Rose MD in [place] 02/25/2021 14:46
== END ==
PROVIDERS: PCP Nurse Practitioner Family; Visit Provider Orthopaedic Surgery
DX: M25.561 Pain in right knee (principal)
CPT/HCPCS: 73564

== ENCOUNTER → 2021-03-25 20:19 | Outpatient (CLI) | payer BC, SELFPAY | PROVIDERS: PCP Nurse Practitioner Family; Visit Provider Specialist | DX: G47.33 Obstructive sleep apnea (adult) (pediatric) (principal); R06.83 Snoring; G47.36 Sleep related hypoventilation in conditions classified elsewhere | CPT/HCPCS: 95810 ==

== ENCOUNTER → 2021-04-15 11:10 | Outpatient (CLI) | payer BC, SELFPAY ==
--- NOTE | 2021-04-15 11:14 | XR_ITS ---
PROCEDURE: XR CHEST 2V CLINICAL HISTORY: nocturnal hypoxemia COMPARISON: CR XR CHEST 2V from 04/20/2019 CR XR RIBS LT MIN 3V W CXR1V from 07/12/2019 CR XR CHEST 2V from 09/09/[address] CHEST WO CON from 10/28/2020 FINDINGS: The cardiomediastinal silhouette and pulmonary vascularity are within normal limits. COPD changes. Calcified granuloma left lower lobe. No lobar consolidation or collapse. There is mild coarsening of the bronchovascular markings which may be seen with smoking related lung disease Degenerative changes thoracic spine IMPRESSION: COPD. No change with no acute finding Dictated by: Ben Rose MD 04/15/2021 12:42 Ben Rose MD in [place] 04/15/2021 12:42
== END ==
PROVIDERS: PCP Nurse Practitioner Family; Visit Provider Specialist
DX: G47.34 Idiopathic sleep related nonobstructive alveolar hypoventilation (principal)
CPT/HCPCS: 71046

== ENCOUNTER → 2021-04-28 14:56 | Outpatient (CLI) | payer BC, SELFPAY ==
--- NOTE | 2021-04-28 15:25 | PC.NURSE ---
PFT completed without incident. Albuterol 0.083% given via [facility]N, per written protocol, Pt tolerated tx well.
[2021-04-28 17:47] LABS: Alanine Aminotransferase 36 U/L (12-78); Albumin Level 4.3 g/dl (3.5-5.0); Alkaline Phosphatase 81 U/L (38-126); Aspartate Amino Transferase 33 U/L (14-36); Bilirubin,Direct 0.1 mg/dl (0.0-0.4); Bilirubin,Indirect 0.4 mg/dL (0.0-0.9); Bilirubin,Total 0.5 mg/dl (0.2-1.3); Bilirubin,Unconjugated 0.4 mg/dL (0.0-1.1); Chol/HDL Ratio 2.2 (1-3.5); Cholesterol 143 mg/dl (140-200); HDL Cholesterol 66 mg/dl (40-60); Total Protein,Serum 6.7 g/dl (6.3-8.2); Triglycerides 79 mg/dl (30-150); VLDL Cholesterol 16 mg/dL (0-40)
[2021-04-28 17:58] LABS: Direct LDL Cholesterol 59.15 mg/dL (100-129)
[2021-04-28 18:03] LABS: Free T4 (Free Thyroxine) 1.19 ng/dl (0.78-2.19)
[2021-04-28 18:18] LABS: Thyroid Stimulating Hormone 0.51 uIU/mL (0.465-4.68)
[2021-04-30 07:21] LABS: Alpha-1-Antitrypsin 143 mg/dL (101-187)
== END ==
PROVIDERS: Internal Medicine Cardiovascular Disease; Internal Medicine Pulmonary Disease; Otolaryngology; PCP Nurse Practitioner Family; Visit Provider Specialist
DX: R06.00 Dyspnea, unspecified (principal); J44.9 Chronic obstructive pulmonary disease, unspecified; I25.10 Atherosclerotic heart disease of native coronary artery without angina pectoris; E01.0 Iodine-deficiency related diffuse (endemic) goiter
CPT/HCPCS: 36415; 80061; 80076; 82103; 84439; 84443; 94060; 94726; 94729

== ENCOUNTER → 2021-06-02 15:44 | Outpatient (CLI) | payer BC, SELFPAY ==
--- NOTE | 2021-06-02 15:48 | XR_ITS ---
PROCEDURE: XR SHOULDER RT MIN 2V CLINICAL INDICATION: RIGHT SHOULDER PAIN COMPARISON: No exams were available for comparison FINDINGS: No fracture or dislocation. No lytic or blastic change. There is normal mineralization. There are mild osteoarthritic changes of the glenohumeral joint with minimal hypertrophic change along the greater tuberosity Other findings:None. IMPRESSION: Mild osteoarthritis the glenohumeral joint Dictated by: Ben Rose MD 06/02/2021 16:35 Ben Rose MD in [place] 06/02/2021 16:35
--- NOTE | 2021-06-02 15:49 | XR_ITS ---
PROCEDURE: XR SHOULDER LT MIN 2V CLINICAL INDICATION: LEFT SHOULDER PAIN COMPARISON: No exams were available for comparison FINDINGS: Mild osteoarthritic changes are present involving the glenohumeral joint. No fracture or dislocation. No significant subacromial stenosis. Other findings:None. IMPRESSION: Glenohumeral osteoarthritic change Dictated by: Ben Rose MD 06/02/2021 16:19 Ben Rose MD in [place] 06/02/2021 16:19
--- NOTE | 2021-06-02 15:49 | XR_ITS ---
PROCEDURE: XR THORACIC SPINE 3V CLINICAL INDICATION: MID THOACIC BACK PAIN COMPARISON: CR XR THORACIC SPINE 3V from 07/12/2019 FINDINGS: There is mild lower thoracic curvature convex left. Multilevel thoracic spondylosis is present with multilevel degenerative disc disease and mild thoracic kyphosis. No acute fracture or dislocation. No lytic or blastic change. Other findings:None. IMPRESSION: Degenerative changes, no acute finding Dictated by: Ben Rose MD 06/02/2021 16:25 Ben Rose MD in [facility] 06/02/2021 16:25
== END ==
PROVIDERS: PCP Nurse Practitioner Family; Visit Provider Nurse Practitioner Family
DX: M54.6 Pain in thoracic spine (principal); M25.512 Pain in left shoulder; M25.511 Pain in right shoulder
CPT/HCPCS: 72072; 73030

== ENCOUNTER → 2021-06-15 13:51 | Outpatient (CLI) | payer BC, SELFPAY ==
--- NOTE | 2021-06-15 13:51 | CT_ITS ---
PROCEDURE: CT SOFT TISSUE NECK WO CON CLINICAL HISTORY: lymphadenopathy Soft tissue neck swelling and pain COMPARISON: CT CT SOFT TISSUE NECK WO/W CON from 06/29/2019 TECHNIQUE: Oral Contrast: None IV Contrast: None Axial images obtained with sagittal and coronal reformats. All CT scans at the facility use one or more dose reduction, viz: automated exposure control, ma/kV adjustment per patient size (including targeted exams where dose is matched to indication, i.e. head), or iterative reconstruction technique. FINDINGS: Study is limited due to artifact from dental hardware. Mastoid air cells are well aerated. Visualized extent of the maxillary, sphenoid, and ethmoid sinuses are clear. There is no cervical adenopathy. There is calcific aortic atherosclerosis. Airways clear. There is a calcified mediastinal lymph nodes suggestive of chronic granulomatous disease. There is severe centrilobular emphysema. The previously identified focus of air in the oropharynx appears unchanged. IMPRESSION: 1. Stable focus of air in the left lateral oropharynx, likely of no clinical significance. 2. Atherosclerosis. 3. Severe emphysema. Dictated by: Denise Shahid MD 06/17/2021 09:30 Denise Shahid MD in [facility] 06/17/2021 09:30
== END ==
PROVIDERS: PCP Nurse Practitioner Family; Visit Provider Otolaryngology
DX: R59.1 Generalized enlarged lymph nodes (principal)
CPT/HCPCS: 70490

== ENCOUNTER 2021-08-07 17:48 | Emergency (ER) | payer BC, SELFPAY ==
[2021-08-07 18:00] VITALS: BP 147/93; PULSE 86; RESP 18; TEMP 36.8; O2SAT 97; BMI 29.2
--- NOTE | 2021-08-07 18:43 | HMH.EDUTC ---
[facility] [place] Disposition Clinical Impression: Viral syndrome, Exposure to COVID-19 virus Disposition: Home, Self-Care Condition on Discharge: Good Instructions: DI for COVID-19 (Suspected or Confirmed ), Preventing the Spread of Coronavirus Discharge Instructions Additional Instructions: Drink plenty of fluids. Take tylenol or ibuprofen for pain or fever. Follow up with your regular doctor. GO TO THE ER FOR ANY WORSENING SYMPTOMS Referrals: Marylu Jeter APRN [Primary Care Provider] - Forms: Work/School Release Time of Disposition: 18:49 Medical Decision Making - Medical Records Medical records reviewed: No: I reviewed the patient's medical records. - Nigel Inquiry Pt receiving controlled substance: No Vital Signs: 08/07/21 18:00 08/07/21 18:52 Temperature 98.3 F 98.3 F Temperature Source Oral Pulse Rate 86 Pulse Rate [Right Brachial] 86 Respiratory Rate 18 18 Blood Pressure 147/93 H Blood Pressure [Right Arm] 147/93 H Blood Pressure Mean [Right Arm] 111 Blood Pressure Source [Right Arm] Automatic Cuff Blood Pressure Position [Right Arm] Sitting 02 Sat by Pulse Oximetry 97 Oxygen Delivery Method Room Air - Lab Data Lab results reviewed: Yes: I reviewed the patient's lab results. [facility] [place] HPI - General Stated complaint: covid test, weak,SOB,HERNANDEZ,muscle pain Time Seen by Provider: 08/07/21 18:43 Mode of Arrival: Ambulatory Source of Information: Patient Limitations: No Limitations Description of Symptoms (Recalled from Triage Doc. by RN): PATIENT C/O HEADACHE, BODY ACHES, AND HOARSENESS. WAS EXPOSED TO COVID ON TUESDAY HEENT Symptoms (Recalled from RN notes): Yes Resp Symptoms (Recalled from RN notes): No Skin Symptoms (Recalled from RN notes): No MS Symptoms (Recalled from RN notes): Yes Functional Status (Recalled from RN notes): WNL - History of Present Illness Provider Complaint: She states that she was exposed to covid-19 about 6 days ago. She got her booster covid immunization yesterday. Today, she found out about the exposure and started feeling bad. She is also having voice hoasness. - Related Data Home Medications Medication Instructions Recorded Confirmed omeprazole 40 mg capsule,delayed 40 mg PO HS 10/08/19 08/07/21 release Budesonide/Formoterol Fumarate 2 puff INHALATION BID 08/07/21 08/07/21 [Budesonide-Formoterol 160-4.5] Allergies Allergy/AdvReac Type Severity Reaction Status Date / Time codeine [CODEINE] Allergy Unknown NA-NAUSEA/V Verified 08/06/21 14:06 OMITING green pepper [GREEN PEPPER] Allergy Unknown DIARRHEA Verified 08/06/21 14:06 - Worker's Comp Is this a Worker's Comp case?: No H History - Hepatitis A Screen Drug use history?: No High risk sexual behaviors?: No History of sexually transmitted infection?: No Currently employed?: No Childcare worker?: No Do you have indoor plumbing?: Yes Do you have electricity?: Yes Attestation statement:: This patient has been screened for Hepatitis A risk factors. I have reviewed the patient's past medical history: Yes Medical History: Reports:: Anxiety, Coronary Artery Disease, Depression Denies:: Diabetes Mellitus Type 1, Diabetes Mellitus Type 2 Comment: COVID vaccines; Moderna. -she is getting the booster. -she does not take a flu shot. -because of taking vitamins Other Surgeries: Yes: Colonoscopy, , Diagnostic Lap, Other Amputation: No Fractures: No - Social History Smoking Status: Former smoker Tobacco Type: cigarettes # Packs/Day (cigarettes): 1 #Yrs smoked (if former smoker): 35 Alcohol Intake: never Alcohol Intake Frequency:: other Substance Use Type: denies use Occupational Status: other, employed Housing: house Household Members: none - Psychiatric History Pschychiatric History:: Reports:: Anxiety, Depression Family Hx:: Cancer ROS Obtained: Yes All systems reviewed & no additional complaints - Constitutional Constitutional: Reports system rev
[2021-08-07 18:52] VITALS: BP 147/93; PULSE 86; RESP 18; TEMP 36.8; O2SAT 97
== END 2021-08-07 18:56 | disposition home or self-care (01) ==
PROVIDERS: Emergency Provider Nurse Practitioner Family; PCP Nurse Practitioner Family
DX: B34.9 Viral infection, unspecified (principal); Z20.822 Contact with and (suspected) exposure to COVID-19; F41.8 Other specified anxiety disorders; I25.10 Atherosclerotic heart disease of native coronary artery without angina pectoris; Z87.891 Personal history of nicotine dependence; Z79.899 Other long term (current) drug therapy
CPT/HCPCS: 99202; C9803; G0463; U0003; U0005

== ENCOUNTER → 2021-09-07 14:03 | Outpatient (CLI) | payer BC, SELFPAY ==
--- NOTE | 2021-09-07 14:09 | US_ITS ---
PROCEDURE INFORMATION: Exam: US Right Non-Vascular Joint or Other Extremity Structure Exam date and time: 09/07/2021 2:09 PM Age: 61 years old Clinical indication: Pain; Upper arm; Right; Additional info: Pain in RT axilla TECHNIQUE: Imaging protocol: Right US joint or other nonvascular extremity structure or structures. Real-time ultrasound with image documentation. Limited study. Exam focused on the upper extremity in the region of clinical interest. COMPARISON: EXTRL US extremity RT limited 02/28/2018 8:57 AM FINDINGS: Soft tissues: No masses or fluid collections. Small sebaceous cyst is noted measuring 7 mm. Lymph nodes: Several lymph nodes present within the right axilla without enlargement. IMPRESSION: 1. No masses or fluid collections. 2. Several lymph nodes present within the right axilla without enlargement. 3. Small sebaceous cyst is noted measuring 7 mm.
--- NOTE | 2021-09-07 14:09 | US_ITS ---
PROCEDURE INFORMATION: Exam: US Left Non-Vascular Joint or Other Extremity Structure Exam date and time: 09/07/2021 2:09 PM Age: 61 years old Clinical indication: Pain; Upper arm; Left; Additional info: Lt axillary pain TECHNIQUE: Imaging protocol: Left US joint or other nonvascular extremity structure or structures. Real-time ultrasound with image documentation. Limited study. Exam focused on the upper extremity in the region of clinical interest. COMPARISON: CT CHEST WO CON 10/28/2020 12:53 PM FINDINGS: Soft tissues: No masses or fluid collections. Lymph nodes: Several left axillary lymph nodes present without enlargement. IMPRESSION: 1. Several left axillary lymph nodes present without enlargement. 2. No masses or fluid collections.
== END ==
PROVIDERS: PCP Nurse Practitioner Family; Visit Provider Nurse Practitioner Family
DX: M79.622 Pain in left upper arm (principal); M79.621 Pain in right upper arm
CPT/HCPCS: 76882

== ENCOUNTER → 2021-11-05 15:22 | Outpatient (CLI) | payer BC, SELFPAY ==
--- NOTE | 2021-11-05 15:23 | CT_ITS ---
FINAL REPORT TECHNIQUE: Axial images were obtained from the lung apex to the mid abdomen by computed tomography. Low-dose protocol was utilized. CLINICAL HISTORY: lung cancer screening COMPARISON: 10/28/2020 FINDINGS: CHEST CT LOW DOSE CTDI vol (mGy): 2.90 DLP (mGy-cm): 86.99 There is a 5 mm right thyroid lobe nodule. There is no axillary adenopathy. There is no hilar or mediastinal adenopathy. The heart is normal in size. There is no pericardial or pleural effusion. Lung window images demonstrate no suspicious infiltrate or nodule. There is moderate emphysema and mild scarring. Atelectasis in the lung bases. There is a calcified granuloma in the lingula. Limited images of the upper abdomen are unremarkable. IMPRESSION: Right thyroid lobe nodule. Consider thyroid ultrasound. Lung RADS category 1S. Recommend 12 month follow-up low-dose chest CT. Reviewed, Interpreted and Dictated by Chaz Rodríguez III, MD Transcribed by Janice Jefferson Authenticated by Chaz Rodríguez III, MD on 11/05/2021 04:36:05 PM [facility]
== END ==
PROVIDERS: PCP Nurse Practitioner Family; Visit Provider Internal Medicine Pulmonary Disease
DX: Z87.891 Personal history of nicotine dependence (principal); Z12.2 Encounter for screening for malignant neoplasm of respiratory organs
CPT/HCPCS: 71271

== ENCOUNTER → 2021-11-14 13:01 | Outpatient (CLI) | payer BC, SELFPAY | PROVIDERS: PCP Nurse Practitioner Family; Visit Provider Internal Medicine Pulmonary Disease | DX: R06.00 Dyspnea, unspecified (principal) | CPT/HCPCS: 94762 ==

== ENCOUNTER → 2021-12-01 12:45 | Outpatient (CLI) | payer BC, SELFPAY ==
--- NOTE | 2021-12-01 12:45 | US_ITS ---
FINAL REPORT CLINICAL HISTORY: hx nodules FINDINGS: THYROID ULTRASOUND Sonographic images of the thyroid was obtained. The right lobe of the thyroid measures 4.5 x 2.4 x 2.1 cm. The left lobe of the thyroid measures 4.5 x 2.0 x 1.9 cm. The isthmus measures 4 mm. There are multiple hypoechoic and isoechoic nodules bilaterally. There is a dominant cystic and solid nodule in the mid right lobe measuring up to 1.6 cm in greatest diameter, TI-RADS 3. The remaining nodules are all subcentimeter in size. IMPRESSION: Multiple bilateral nodules as described. Recommend 1 year follow-up for dominant TI-RADS 3 nodule in the right lobe. No follow-up is required for subcentimeter nodules Reviewed, Interpreted and Dictated by Khadar Sellers MD Transcribed by Sylwia Santiago Authenticated by Khadar Sellers MD on 12/01/2021 03:14:40 PM [facility]
--- NOTE | 2021-12-01 12:49 | US_ITS ---
FINAL REPORT CLINICAL HISTORY: LUMP IN NECK, posterior neck FINDINGS: Sonographic images were obtained of the posterior neck at the area of interest. The right and left parotid and submandibular glands are unremarkable. No cyst, mass or fluid is seen at the palpable area of interest. IMPRESSION: No sonographic abnormality is identified at the region of interest. If clinical symptoms persist, consider a CT with a skin marker. Reviewed, Interpreted and Dictated by Khadar Sellers MD Transcribed by Sylwia Santiago Authenticated by Khadar Sellers MD on 12/02/2021 10:12:13 AM [facility]
== END ==
PROVIDERS: PCP Nurse Practitioner Family; Visit Provider Student in an Organized Health Care Education/Training Program
DX: R49.0 Dysphonia (principal)
CPT/HCPCS: 76536

== ENCOUNTER → 2021-12-21 07:49 | Outpatient (CLI) | payer BC, SELFPAY ==
--- NOTE | 2021-12-21 07:50 | US_ITS ---
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 rt [id number] fna by dayna calix FINDINGS: ULTRASOUND-GUIDED THYROID FNA HISTORY: Right thyroid nodule. PHYSICIAN REFRIGERATED CARGO CLERK: Dayna Healy PA-C ATTENDING PHYSICIAN: Dr. Rodríguez PROCEDURE: Informed consent was obtained from the patient. A timeout procedure was performed prior to beginning. Patient was prepped and draped in usual sterile fashion over the right neck. Skin was anesthetized with 1% Lidocaine. Ultrasound was utilized to locate the lesion of interest, measuring approximately 1.5 cm in the right lobe. Using 25-gauge needles, four FNA passes were made of this lesion. Patient tolerated the procedure well and left the department in good condition. IMPRESSION: Technically successful ultrasound guided FNA of a right thyroid nodule as above. Reviewed, Interpreted and Dictated by Chaz Rodríguez III, MD Transcribed by Dayna Healy PA-C Authenticated by Chaz Rodríguez III, MD on 12/21/2021 04:38:05 PM [facility]
== END ==
PROVIDERS: PCP Nurse Practitioner Family; Visit Provider Student in an Organized Health Care Education/Training Program
DX: D49.7 Neoplasm of unspecified behavior of endocrine glands and other parts of nervous system (principal)
CPT/HCPCS: 10005; 76536

== ENCOUNTER → 2022-01-22 12:45 | Outpatient (CLI) | payer BC, SELFPAY ==
--- NOTE | 2022-01-22 12:45 | US_ITS ---
FINAL REPORT CLINICAL HISTORY: history thyroid nodules COMPARISON: December 01, 2021 FINDINGS: THYROID ULTRASOUND Sonographic images of the thyroid was obtained. The right lobe of the thyroid measures 4.3 x 2.9 x 2.6 cm. The left lobe of the thyroid measures 4.3 x 2.8 x 1.9 cm. The isthmus measures 4 mm. Dominant nodule in the right lobe measuring 1.7 x 1.3 x 0.9 cm and previously measured 1.7 x 1.6 x 0.9 cm. It is cystic, solid and isoechoic. There are multiple other less than 1 cm nodules. Many are cystic and overall appear visually stable. IMPRESSION: Stable dominant TI-RADS 3 nodule in the right lobe which was recently biopsied. Other smaller nodules are difficult to accurately compare but overall appears similar. Reviewed, Interpreted and Dictated by Chaz Rodríguez III, MD Transcribed by Sylwia Santiago Authenticated and . [facility]
== END ==
PROVIDERS: PCP Nurse Practitioner Family; Visit Provider Student in an Organized Health Care Education/Training Program
DX: E04.1 Nontoxic single thyroid nodule (principal)
CPT/HCPCS: 76536

== ENCOUNTER → 2022-04-13 12:43 | Outpatient (CLI) | payer BC, SELFPAY ==
--- NOTE | 2022-04-13 12:50 | XR_ITS ---
FINAL REPORT CLINICAL HISTORY: knee pain FINDINGS: RIGHT KNEE Four views of the right knee were obtained. There is no acute fracture or dislocation. There is sharpening of the tibial spines. There is mild narrowing of the medial compartment joint space. There is a small joint effusion. IMPRESSION: Mild hypertrophic changes of osteoarthritis. Reviewed, Interpreted and Dictated by Khadar Sellers MD Transcribed by Sylwia Santiago Authenticated and . [facility]
== END ==
PROVIDERS: PCP Nurse Practitioner Family; Visit Provider Orthopaedic Surgery
DX: M25.561 Pain in right knee (principal)
CPT/HCPCS: 73564

== ENCOUNTER → 2022-06-09 13:10 | Outpatient (CLI) | payer BC, SELFPAY | PROVIDERS: PCP Nurse Practitioner Family; Visit Provider Internal Medicine Pulmonary Disease | DX: R06.02 Shortness of breath (principal) | CPT/HCPCS: 93306 ==

== ENCOUNTER → 2022-06-25 10:59 | Outpatient (CLI) | payer BC, SELFPAY ==
[2022-06-25 11:40] LABS: Basophils # 0.1 K/mm3 (0-0.2); Basophils % 1.6 % (0.1-2.0); Eosinophils # 0.3 K/mm3 (0.0-0.4); Eosinophils % 3.5 % (0.1-12.0); Hematocrit 46.7 % (37.0-47.0); Lymphocytes # 1.7 K/mm3 (0.7-4.5); Lymphocytes % 19.4 % (10-50); Mean Corpuscular Hemoglobin 30.9 pg (27.0-31.2); Mean Corpuscular Volume 96.3 fl (81-99); Mean Platelet Volume 8.8 fl (7.4-10.4); Monocytes # 0.5 K/mm3 (0.1-1.0); Monocytes % 5.9 % (1.7-9.3); Neutrophils # 6.2 K/mm3 (1.8-7.8); Neutrophils % 69.6 % (37.0-80.0); Platelet Count 280 K/mm3 (142-424); Red Blood Count 4.85 M/mm3 (4.20-5.40); Red Cell Distribution Width 13.5 % (11.5-17.5); White Blood Count 8.9 K/mm3 (4.8-10.8)
[2022-06-25 12:05] LABS: Anion Gap 15.7 mEq/L (5-15); Blood Urea Nitrogen 14 mg/dl (7-17); Calcium 10.3 mg/dl (8.4-10.2); Carbon Dioxide 25 mmol/L (22.0-30.0); Chloride 103 mmol/L (98-107); Estimated Glomerular Filt Rate 85 ml/min (>60); GFR (African American) 103 ML/MIN (>60); Glucose 96 mg/dl (74-100); Potassium 4.7 mmoL/L (3.5-5.1); Sodium 139 mmol/L (136-145)
== END ==
PROVIDERS: PCP Nurse Practitioner Family; Visit Provider Internal Medicine Cardiovascular Disease
DX: R06.09 Other forms of dyspnea (principal); I25.10 Atherosclerotic heart disease of native coronary artery without angina pectoris; J43.9 Emphysema, unspecified; J44.9 Chronic obstructive pulmonary disease, unspecified; Z86.69 Personal history of other diseases of the nervous system and sense organs; I63.9 Cerebral infarction, unspecified
CPT/HCPCS: 36415; 80048; 85025

== ENCOUNTER 2022-07-02 09:07 | Day surgery (SDC) | payer BC, SELFPAY ==
[2022-07-02] VITALS (14 sets, daily range): BP systolic 88–116; BP diastolic 53–80; PULSE 39–82; RESP 16–20; TEMP 36.9; O2SAT 90–97; BMI 65.6
--- NOTE | 2022-07-02 07:12 | IR_ITS ---
APPROVED REPORT Patient Location: Outpatient PROCEDURES Right heart catheterization Left heart catheterization Left ventriculogram Selective coronary angiogram INDICATION Pulmonary hypertension, Accelerated angina pectoris, Calcium on CT scan, Informed consent was obtained prior to the procedure. COMPLICATIONS None Estimated Blood Loss: Less than 10 mls TECHNIQUE One percent lidocaine was used to anesthetize the right anterior aspect of the right wrist. The right radial artery was accessed via the Seldinger technique and a 6 [place] hydrophilic sheath was placed in the right radial artery. 1% lidocaine used anesthetize the right groin the right femoral vein was accessed via the Salinger technique and a 7 [place] sheath was placed in the right femoral artery. [place]-Linda catheter was used to perform right heart catheterization. Following this an arterial cocktail was administered using 5000U heparin, 2.5 mg verapamil, 1mg Lidocaine and 800mcg nitroglycerin into the right radial sheath. A papa catheter was used to perform left heart catheterization left ventriculogram and selective coronary angiography while a [place]vine-Linda catheter was used to perform right heart catheterization. Saturations were obtained in the pulmonary artery and right atrium. At the end of the procedure the arterial sheath was removed good hemostasis was achieved using Traclet band. Patient was transferred to the postop holding area in stable condition for venous sheath removal. ANGIOGRAPHIC RESULTS The left main artery Normal The left anterior descending artery Normal The circumflex artery Normal The right coronary artery Dominant normal The TSANG ventriculogram reveals Preserved 55% The left ventricular end-diastolic pressure Less than 10 mmHg Right atrial pressure 10 mmHg Pulmonary pressure 25/10 mmHg Pulmonary occlusion pressure 6 mmHg Right atrial saturation 83% Pulmonary artery saturation 82% Aortic saturation 100% Hemoglobin 15 Cardiac output 12 L/min per Gopi IMPRESSION Normal coronary arteries Preserved ejection fraction Normal left ventricular end-diastolic pressure Normal intracardiac pulmonary filling pressures PLAN 1. Evaluation of noncardiac symptomatology Electronically signed by : Hemanth More MD 07/02/2022 10:46:22
[2022-07-02 11:03] LABS: CATHL Arterial O2 SAT 82.8 % (90-100); CATHL Venous O2 SAT 83.5 % (75-80)
== END 2022-07-02 13:44 | disposition home or self-care (01) ==
LOC: CATHLAB 09:08
PROVIDERS: PCP Nurse Practitioner Family; Visit Provider Internal Medicine
DX: I25.118 Atherosclerotic heart disease of native coronary artery with other forms of angina pectoris (principal); I27.20 Pulmonary hypertension, unspecified; J43.9 Emphysema, unspecified; Z79.899 Other long term (current) drug therapy
CPT/HCPCS: 82810; 93460; 99152; C1725; C1769; C1894; J1644; Q9967

== ENCOUNTER 2022-09-29 16:44 | Outpatient (RCR) | payer BC, SELFPAY ==
--- NOTE | 2022-09-29 18:01 | HMH.SLVOIC ---
Speech & Language Evaluation Speech/Language Voice Evaluation Start: 09/29/22 17:16 Freq: once Status: Complete Protocol: Document 09/29/22 17:16 CALLI (Rec: 09/29/22 18:01 CALLI [id number]) Voice/Dysarthria Assessment/Goals/Plan Assessment/Problems Date of Evaluation: 09/29/22 Assessment/Problems Chronic hoarsness Does Patient Qualify for Service Yes Qualify/Failure Comment Givenvoice assessment and pt's diagnoses, pt would benefit from speech therapy services to address vocal hygiene. Recommendations for # weeks 12 Comment Pt will be seen biweekly. Plan Anticipate reaching STG in # weeks 8 Anticipate reaching LTG in # weeks 12 Pt/Guardian verbally ack understanding Yes of dx/prognosis/goals Pt/Guardian verbally ack understanding Yes of/consent to tx prog G -code Required No Short Term Goals Educated on & eliminate vocal abuse Yes behaviors Use easy initiation of phonation for Yes prod of best voice 8/10 trials Use easy initiation of phonation to Yes eliminate hard glottal attack 8/10 trials Inc loudness level wo inc laryngeal Yes tension 8/10 trials Inc easy initial of phonation using best Yes vocal quality habitually 8/10 P[employer] Worker Goals Improve overall quality to increase/ Yes improve communication with family/ friends. Education Instructions provided Assessment results and recommendations discussed with pt who expressed understanding. Pt/Caregiver able to recall information Able to recall/restate Reinforcement needed No Speech & Language HPI History Present Illness Description of Patient Problem Ms. Adler is a 62 y.o. female presenting to [facility] for an assessment of voice. Her PMH is significant for Sukhdeep' s esophagus, GERD, and COPD. She reports her hoarsness has been going on for approximately 1 year, and has progressively gotten worse. She has made some diet changes to address the GERD, which she reports has improved her vocal quality over the past 3 days. Rehab Services Assessed Speech therapy [facility] Resonance Eval Communication/Cognition Orientation Name,Place,Day,Date,Year Ablili
== END 2022-09-29 16:45 | disposition home or self-care (01) ==
LOC: ST 16:44
PROVIDERS: Visit Provider Otolaryngology
DX: R49.0 Dysphonia (principal)
CPT/HCPCS: 92524

== ENCOUNTER → 2022-10-15 07:23 | Outpatient (CLI) | payer BC, SELFPAY ==
[2022-10-15 08:01] LABS: Chloride 109 mmol/L (98-107)
[2022-10-15 08:02] LABS: Potassium 4.4 mmoL/L (3.5-5.1); Sodium 142 mmol/L (136-145)
[2022-10-15 08:04] LABS: Alanine Aminotransferase 28 U/L (12-78); Anion Gap 9.4 mEq/L (5-15); Aspartate Amino Transferase 30 U/L (14-36); Blood Urea Nitrogen 15 mg/dl (7-17); Carbon Dioxide 28 mmol/L (22.0-30.0); Estimated Glomerular Filt Rate 85 ml/min (>60); GFR (African American) 103 ML/MIN (>60)
[2022-10-15 08:05] LABS: Albumin Level 4.4 g/dl (3.5-5.0); Albumin/Globulin Ratio 1.8 (1.1-1.8); Alkaline Phosphatase 70 U/L (38-126); Bilirubin,Total 0.7 mg/dl (0.2-1.3); Calcium 9.4 mg/dl (8.4-10.2); Chol/HDL Ratio 2.2 (1-3.5); Cholesterol 117 mg/dl (140-200); Globulin 2.4 g/dL (1.3-3.2); Glucose 98 mg/dl (74-100); HDL Cholesterol 54 mg/dl (40-60); Total Protein,Serum 6.8 g/dl (6.3-8.2); Triglycerides 58 mg/dl (30-150); VLDL Cholesterol 12 mg/dL (0-40)
[2022-10-15 08:16] LABS: Direct LDL Cholesterol 51.07 mg/dL (100-129)
[2022-10-15 08:18] LABS: Basophils # 0.1 K/mm3 (0-0.2); Basophils % 1.5 % (0.1-2.0); Eosinophils # 0.1 K/mm3 (0.0-0.4); Hematocrit 43.8 % (37.0-47.0); Hemoglobin 14.4 g/dL (12.2-16.2); Lymphocytes # 1.6 K/mm3 (0.7-4.5); Lymphocytes % 21.9 % (10-50); Mean Corpuscular HGB Conc 32.7 g/dL (31.8-35.4); Mean Corpuscular Hemoglobin 30.8 pg (27.0-31.2); Mean Corpuscular Volume 94.2 fl (81-99); Mean Platelet Volume 9.9 fl (7.4-10.4); Monocytes # 0.5 K/mm3 (0.1-1.0); Monocytes % 6.5 % (1.7-9.3); Neutrophils # 4.9 K/mm3 (1.8-7.8); Neutrophils % 68.1 % (37.0-80.0); Platelet Count 268 K/mm3 (142-424); Red Blood Count 4.66 M/mm3 (4.20-5.40); Red Cell Distribution Width 13.6 % (11.5-17.5); White Blood Count 7.2 K/mm3 (4.8-10.8)
== END ==
PROVIDERS: PCP Nurse Practitioner Family; Visit Provider Nurse Practitioner Obstetrics & Gynecology
DX: Z00.00 Encounter for general adult medical examination without abnormal findings (principal); Z79.899 Other long term (current) drug therapy
CPT/HCPCS: 36415; 80053; 80061; 85025

== ENCOUNTER → 2022-10-22 07:42 | Outpatient (CLI) | payer BC, SELFPAY ==
--- NOTE | 2022-10-22 07:42 | CT_ITS ---
FINAL REPORT TECHNIQUE: Thin section axial images were obtained through the abdomen after administration of oral contrast. Reconstruction images were obtained from the axial data. Exam was performed using dose reduction techniques. CLINICAL HISTORY: rule out appendix, possible hernia rlq pain FINDINGS: The lung bases are clear. The unenhanced liver is homogeneous. The gallbladder is present. The spleen, adrenal glands, and pancreas are unremarkable. There is no renal stone, hydronephrosis or solid renal mass. Abdominal GI tract is without acute abnormality. There is no small bowel obstruction. There is no wall thickening. There is no abdominal lymphadenopathy or ascites. There is no ventral hernia. The pelvic solid organs are unremarkable. The uterus is unremarkable. The appendix is normal. There is diverticulosis. There is subtle abnormal attenuation adjacent to the proximal sigmoid colon where there are diverticula. Early diverticulitis is not excluded. There is no pelvic lymphadenopathy or ascites. No acute osseous abnormalities identified. IMPRESSION: 1. No ventral hernia. 2. Abnormal attenuation surrounding the proximal sigmoid colon, early diverticulitis is not excluded. Reviewed, Interpreted and Dictated by Ruby Andrews MD Transcribed by Sylwia Santiago Authenticated and . [facility]
== END ==
LOC: RAD 07:42
PROVIDERS: PCP Nurse Practitioner Family; Visit Provider Nurse Practitioner Obstetrics & Gynecology
DX: R10.31 Right lower quadrant pain (principal); G89.29 Other chronic pain
CPT/HCPCS: 74176

== ENCOUNTER → 2022-11-12 10:00 | Outpatient (CLI) | payer BC, SELFPAY ==
--- NOTE | 2022-11-12 | CA_ITS ---
FINAL REPORT TECHNIQUE: Ultrasound images of the deep venous system were obtained from the left groin to the calf veins. CLINICAL HISTORY: Left calf pain without trauma. States she had back surgery 12 years ago and the legs have gotten worse over the years. She states she experiences shooting pain in her popliteal fossa and foot of LLE. FINDINGS: The deep venous system is normally compressible. Normal flow is identified. IMPRESSION: No evidence of left lower extremity DVT. Reviewed, Interpreted and Dictated by Khadar Sellers MD Transcribed by Radha Sanford Authenticated and [facility]
== END ==
LOC: RT 10:00
PROVIDERS: PCP Nurse Practitioner Family; Visit Provider Nurse Practitioner Family
DX: M79.605 Pain in left leg (principal); I83.813 Varicose veins of bilateral lower extremities with pain
CPT/HCPCS: 93971

== ENCOUNTER → 2022-11-19 15:10 | Outpatient (CLI) | payer BC, SELFPAY ==
--- NOTE | 2022-11-19 15:10 | CT_ITS ---
FINAL REPORT TECHNIQUE: Axial images were obtained from the lung apex to the mid abdomen by computed tomography. This study was performed with techniques to keep radiation doses as low as reasonably achievable (ALARA). Individualized dose reduction techniques using automated exposure control or adjustment of mA and/or kV according to the patient's size were employed. CLINICAL HISTORY: lung cancer screening FORMER SMOKER, QUIT 7YRS AGO, SMOKED 1 1/2 PK PER DAY FOR 35 YRS COPD COMPARISON: 11/05/2021 FINDINGS: CHEST CT LOW DOSE CTDI vol (mGy): 2.90 DLP (mGy-cm): 109.42 There is no axillary adenopathy. There is no hilar or mediastinal adenopathy. The previously seen thyroid nodules are likely unchanged. The heart is normal in size. There is no pericardial or pleural effusion. Lung window images demonstrate no suspicious infiltrate or nodule. Note is made of granulomatous disease. There is emphysema. Limited images of the upper abdomen are unremarkable. IMPRESSION: Lung RADS category 1. Recommend 12 month follow-up low-dose chest CT. Reviewed, Interpreted and Dictated by Ruby Andrews MD Transcribed by Janice Jefferson Authenticated and [facility]
== END ==
PROVIDERS: PCP Nurse Practitioner Family; Visit Provider Internal Medicine Pulmonary Disease
DX: Z87.891 Personal history of nicotine dependence (principal); Z12.2 Encounter for screening for malignant neoplasm of respiratory organs
CPT/HCPCS: 71271

== ENCOUNTER → 2023-01-03 13:16 | Outpatient (CLI) | payer BC, SELFPAY ==
--- NOTE | 2023-01-03 13:16 | US_ITS ---
FINAL REPORT CLINICAL HISTORY: hx nodule FINDINGS: THYROID ULTRASOUND The right lobe of the thyroid measures 5.7 x 2.7 x 2.1 cm. The left lobe of the thyroid measures 5.6 x 2.2 x 2.0 cm. The parenchyma shows normal echogenicity. In the right lobe of the thyroid is a 16 x 13 x 11 mm mostly solid and isoechoic TI-RADS 3 nodule. Also in the right lobe is a 5 x 5 x 5 mm cystic nodule with macro calcification consistent with a TI-RADS 2. In the right lobe of the thyroid is an 8 x 7 x 6 mm cystic nodule with calcification consistent with a TI-RADS 2. In the left lobe of the thyroid is a 6 x 5 x 3 mm solid hypoechoic TI-RADS 4 nodule. IMPRESSION: Multiple small nodules. No follow-up required. Reviewed, Interpreted and Dictated by Chaz Rodríguez III, MD Transcribed by Peyman iWlson Authenticated and [facility]
== END ==
LOC: RAD 13:16
PROVIDERS: PCP Nurse Practitioner Family; Visit Provider Student in an Organized Health Care Education/Training Program
DX: E04.1 Nontoxic single thyroid nodule (principal)
CPT/HCPCS: 76536

== ENCOUNTER → 2023-02-28 08:42 | Outpatient (CLI) | payer BC, SELFPAY ==
--- NOTE | 2023-02-28 08:42 | CT_ITS ---
FINAL REPORT TECHNIQUE: Thin section axial CT images with coronal and sagittal reformats were performed through the neck. This study was performed with techniques to keep radiation doses as low as reasonably achievable (ALARA). Individualized dose reduction techniques using automated exposure control or adjustment of mA and/or kV according to the patient''s size were employed. CLINICAL HISTORY: hoarseness X 8 months. FINDINGS: There are multiple small mediastinal lymph nodes. There is no adenopathy. Thyroid gland is moderately enlarged.. Salivary glands are normal. Larynx is unremarkable. Limited imaging of the lungs demonstrates emphysema at the apices with mild scarring. IMPRESSION: Moderately enlarged thyroid gland. Multiple small mediastinal lymph nodes without adenopathy. Reviewed, Interpreted and Dictated by Chaz Rodríguez III, MD Transcribed by Radha Sanford Authenticated and [facility]
--- NOTE | 2023-02-28 09:15 | MR_ITS ---
FINAL REPORT CLINICAL HISTORY: LEFT LUMBOSACRAL RADICULOPATHY. bilateral leg numbness, worse in left leg from knee to foot. prior back surgery 2010. FINDINGS: Multiplanar MR imaging of the lumbar spine was performed without contrast. On the sagittal T2-weighted images, disc degeneration is seen throughout. There is fusion at L4-5 where there is also mild anterolisthesis. The vertebral alignment is otherwise normal. There is no evidence of fracture. No bony mass is identified. The conus is seen at approximately the L1 level and has an unremarkable appearance. T12-L1: There is an annular disc bulge without significant canal stenosis or neural foraminal narrowing. L1-2: No significant central canal stenosis or neuroforaminal narrowing. L2-3: There is facet arthropathy without significant canal stenosis or neural foraminal narrowing. L3-4: Annular disc bulge and facet arthropathy with small central disc protrusion. There is mild bilateral neuroforaminal narrowing. L4-5: Postoperative changes effusion with moderate bilateral neuroforaminal narrowing. L5-S1: Partial sacralization of L5. There is facet arthropathy. No significant central canal stenosis or neuroforaminal narrowing. A small cyst is seen in the mid sacral spinal canal. IMPRESSION: Small central disc protrusion L3-4 with mild bilateral neuroforaminal narrowing. Moderate bilateral neuroforaminal narrowing at L4-5. Reviewed, Interpreted and Dictated by Chaz Rodríguez III, MD Transcribed by Radha Sanford Authenticated and [facility]
== END ==
LOC: RAD 08:42
PROVIDERS: PCP Nurse Practitioner Family; Visit Provider Nurse Practitioner
DX: E04.1 Nontoxic single thyroid nodule (principal); R49.0 Dysphonia; M54.17 Radiculopathy, lumbosacral region; Z98.890 Other specified postprocedural states
CPT/HCPCS: 70490; 72148; 76376

== ENCOUNTER 2023-03-10 11:18 | Emergency (ER) | payer BC, SELFPAY ==
[2023-03-10 11:18] VITALS: BP 122/75; PULSE 71; RESP 16; TEMP 36.6; O2SAT 96; BMI 29.2
--- NOTE | 2023-03-10 11:32 | EXP.UTC ---
Discharge Plan Disposition Patient Disposition: Home, Self-Care Condition: Good Prescriptions Prescriptions: New azithromycin [Zithromax] 250 mg tablet 250 mg PO UD DOSE PK Qty: 6 0RF Rx Instructions: Take two (2) tablets today, then one (1) tablet days #2 thru #5 benzonatate [benzonatate] 100 mg capsule 100 mg PO TIDP PRN (Reason: Cough) Qty: 30 0RF methylprednisolone 4 mg Tablets,Dose Pack 4 mg PO DIRECTED Qty: 21 0RF No Action montelukast [Singulair] 10 mg tablet 10 mg PO DAILY Qty: 60 4RF esomeprazole magnesium 20 mg capsule,delayed release(DR/EC) 40 mg PO DAILY Qty: 60 4RF albuterol sulfate 90 mcg/actuation HFA aerosol inhaler 2 inh INHALATION Q6H PRN (Reason: shortness of breath or wheezing) 90 Days Qty: 8.5 3RF budesonide-formoterol 160-4.5 mcg/actuation HFA aerosol inhaler 2 puff inhalation BID 90 Days Qty: 10.2 3RF rosuvastatin 20 mg tablet 20 mg PO DAILY Qty: 30 5RF aspirin [Adult Low Dose Aspirin] 81 mg tablet,delayed release (DR/EC) 81 mg PO DAILY montelukast 10 mg tablet 10 mg PO DAILY azelastine 137 mcg (0.1 %) aerosol,spray 2 spray INTRANASAL BID Rx Instructions: administer into each nostril fluticasone propionate 50 mcg/actuation spray,suspension 2 spray INTRANASAL DAILY Rx Instructions: administer into each nostril budesonide-formoterol 160-4.5 mcg/actuation HFA aerosol inhaler 2 puff INHALATION BID Referrals Follow up/Referrals: Marylu Jeter APRN [Primary Care Provider] - See instructions Activity Restrictions/Add. Instructions Additional Instructions/Restrictions: Drink plenty of fluids. Take tylenol or ibuprofen for pain or fever. Take the medications as directed. Follow up with your regular doctor. GO TO THE ER FOR ANY WORSENING SYMPTOMS Clinical Impressions Clinical Impression: Sinusitis Instructions Patient Instructions: Sinusitis, DI for Sinusitis Discharge ED Provider: Pierre Valdez [facility] General Stated complaint: Bodyaches facial pressure Time Seen by Provider: 03/10/23 11:31 History of Present Illness Provider Complaint: she states that for the past 5 days she has had sinus pressure, congestion, and a productive cough with yellowish sputum. She has a history of copd. Related Data Home Medications Medication Instructions Recorded Confirmed aspirin 81 mg tablet,delayed 81 mg PO DAILY . 07/02/22 03/03/23 release (Adult Low Dose Aspirin) azelastine 137 mcg (0.1 %) nasal 2 spray intranasal BID . 07/02/22 03/03/23 spray aerosol budesonide-formoterol HFA 160 2 puff inhalation BID . 07/02/22 03/03/23 mcg-4.5 mcg/actuation aerosol inhaler fluticasone propionate 50 2 spray intranasal DAILY . 07/02/22 03/03/23 mcg/actuation nasal spray,suspension montelukast 10 mg tablet 10 mg PO DAILY . 07/02/22 03/03/23 Previous Rx's Medication Instructions Recorded esomeprazole magnesium 20 mg 40 mg PO DAILY take 2 tabs before 09/15/21 capsule,delayed release supp #60 caps albuterol sulfate 90 mcg/actuation 2 inh inhalation Q6H PRN shortness 05/12/22 aerosol inhaler of breath or wheezing 90 days #8.5 grams budesonide-formoterol HFA 160 2 puff inhalation BID 90 days 11/16/22 mcg-4.5 mcg/actuation aerosol #10.2 grams inhaler montelukast 10 mg tablet 10 mg PO DAILY #60 tabs 02/07/23 (Singulair) rosuvastatin 20 mg tablet 20 mg PO DAILY . #30 tabs 03/08/23 azithromycin 250 mg tablet 250 mg PO UD DOSE PK #6 tabs 03/10/23 (Zithromax) benzonatate 100 mg capsule 100 mg PO TIDP PRN Cough #30 caps 03/10/23 methylprednisolone 4 mg tablets in 4 mg PO DIRECTED #21 tabs 03/10/23 a dose pack Allergies Allergy/AdvReac Type Severity Reaction Status Date / Time leal pepper [GREEN PEPPER] Allergy Unknown DIARRHEA Verified 03/03/23 09:35 codeine [CODEINE] Allergy Unknown NA-NAUSEA/V Verified 03/03/23 09:35 OMITING PFSH PFSH Disclaimer:
[2023-03-10 12:06] VITALS: BP 122/75; PULSE 71; RESP 16; TEMP 36.6; O2SAT 96
== END 2023-03-10 12:07 | disposition home or self-care (01) ==
PROVIDERS: Emergency Provider Nurse Practitioner Family; PCP Nurse Practitioner Family
DX: J01.90 Acute sinusitis, unspecified (principal); J44.9 Chronic obstructive pulmonary disease, unspecified; E04.1 Nontoxic single thyroid nodule; Z87.891 Personal history of nicotine dependence; J45.30 Mild persistent asthma, uncomplicated
CPT/HCPCS: 99212; 99214; G0463

== ENCOUNTER → 2023-03-21 09:43 | Outpatient (POV) | payer BC, SELFPAY ==
[2023-03-21 10:05] VITALS: BP 137/87; PULSE 63; RESP 18; O2SAT 97; BMI 29.2
--- NOTE | 2023-03-21 10:36 | XR_ITS ---
FINAL REPORT CLINICAL HISTORY: PAIN COMPARISON: None FINDINGS: Three views of the left knee reveal no evidence of fracture or dislocation. The bony alignment is normal. Mild degenerative changes present. There is no evidence of joint effusion. No localized soft tissue abnormality is seen. IMPRESSION: No acute abnormality identified. Reviewed, Interpreted and Dictated by Chaz Rodríguez III, MD Transcribed by Lay Varma Authenticated and [facility]
--- NOTE | 2023-03-21 10:37 | XR_ITS ---
FINAL REPORT CLINICAL HISTORY: KNEE PAIN COMPARISON: 04/13/2022 FINDINGS: Three views of the right knee reveal no evidence of fracture or dislocation. The bony alignment is normal. There is moderate medial compartment degenerative change, stable since the prior films. There is a small joint effusion. No localized soft tissue abnormality is identified. IMPRESSION: No acute abnormality identified. Reviewed, Interpreted and Dictated by Chaz Rodríguez III, MD Transcribed by Lay Varma Authenticated and [facility]
--- NOTE | 2023-03-21 11:14 | EXP.PAIN.OV ---
HPI Data of Consult Patient: new to practice Consult date: 03/21/23 Requesting Physician: Kanika Whitney APRN Consult Narrative Reason for consult: Left lower leg numbness/pain History of present illness: Ms. Adler is a 62 year old female who presents today as a new patient. She is a referral from Graciela Jeter's office. She rates her pain today a 2 out of 10. Patient states her pain is all in her left lower leg with numbness and pain that is worse with increased activity. Patient does describe her left lower leg pain as a sharp shooting pain almost like lightning that is not constant but intermittent and is at random. Patient states this has been going on for years and progressively worsened over time. She denies any pain or issues in her left upper leg/thigh. Patient does state that she previously had low back pain that she ended up having a lumbar fusion for in 2010. She does state following this procedure her back pain did improve. She states that recent updated imaging only showed old a lumbar bulge and she questions whether or not if this is causing her worsening left leg symptoms. She also states in the past she has had right inguinal pain related to trying to stop a dog fight and ended up with a right inguinal tear. Patient states she did see a specialist for more than 5 months before getting a right inguinal nerve block that did provide improvement. Patient also states she will occasionally have bilateral knee pain and she feels like that her right leg does need to be replaced. She states that she did see Dr. Pardo in the past who recommended waiting to see how long she could wait before proceeding forward with a total replacement. 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 She states in the past she has had restless leg syndrome. Patient is not on any scheduled medications. Her Nigel is [phone]. Its been reviewed and appropriate. CC: Kanika Whitney APRN [facility] Disclaimer: The information contained in this section may have been updated after the patient was seen, as this information can be updated by other users. Medical History Allergic rhinitis, unspecified COPD (chronic obstructive pulmonary disease) Dyspnea on exertion History of sleep apnea Hoarseness Mild persistent asthma Nocturnal hypoxemia Pulmonary emphysema Stopped smoking with greater than 30 pack year history Thyroid Nodule Surgical History History of section History of colonoscopy Previous back surgery Family History Other Cancer Diabetes Hypertension Social History (Updated 03/21/23 @ 10:06 by Rayna Hutchison RN) Smoking Status: Former smoker pack-years: 35 alcohol intake: never substance use type: denies use current occupational status: other Travel in the last 8 weeks: None household members: none housing: house number of children: 1 Review of Systems Review of Systems Review of systems:: pertinent systems reviewed and negative unless documented below Review of systems (narrative): Review of Systems: General: No recent weight changes, no fever, no sleep disturbances Respiratory: No cough, no shortness of air, no recurring pulmonary infections Cardiovascular/peripheral vascular: No chest pain, no palpitations, no edema, no shortness of breath Gastrointestinal: No new onset incontinence, normal bowel movements reported Genitourinary: No new onset incontinence Musculoskeletal: Left lower leg numbness/pain Psychiatric: [Normal mood/affect] Neurological: [Denies weakness in extremities], [denies balance issues] Meds Home Medications and Allergies Home Medications Medication Instructions Recorded Confirmed Type esomeprazole magnesium 20 mg 40 mg PO DAILY take 2
== END | disposition home or self-care (01) ==
PROVIDERS: Visit Provider Nurse Practitioner Family
DX: M25.561 Pain in right knee (principal); M25.562 Pain in left knee; G89.29 Other chronic pain; M79.662 Pain in left lower leg; M51.16 Intervertebral disc disorders with radiculopathy, lumbar region
CPT/HCPCS: 73562; 99202; G0463

== ENCOUNTER → 2023-03-21 10:33 | Outpatient (CLI) | payer BC, SELFPAY | PROVIDERS: PCP Nurse Practitioner Family; Visit Provider Anesthesiology | DX: M25.561 Pain in right knee (principal); M25.562 Pain in left knee ==

== ENCOUNTER → 2023-04-04 10:17 | Outpatient (POV) | payer BC, SELFPAY ==
--- NOTE | 2023-04-04 10:57 | EXP.PAIN.SOA ---
[facility] Pain Management SOAP Note Subjective:: Patient is a pleasant 62-year-old female who presents today for follow-up. We are currently treating the patient for low back pain, degenerative disc disease of lumbar spine with lumbar radiculopathy symptoms, bilateral knee pain. Today she rates her pain a 1 out of 10. Patient denies any new trauma or injury. Patient does state that she continues to have knee pain that is worse on the right side however on the left there is 1 spot that always feels like it is bruised states that in those there is no apparent discoloration. She does state since our last visit that the Requip has significantly improved her leg cramps at night. She states that she has also ordered her compounding cream however it is not came in the mail yet. Patient is not on any scheduled medications. Her Nigel is [phone]. Its been reviewed and appropriate. Review of Systems: General: No recent weight changes, no fever, no sleep disturbances Respiratory: No cough, no shortness of air, no recurring pulmonary infections Cardiovascular/peripheral vascular: No chest pain, no palpitations, no edema, no shortness of breath Gastrointestinal: No new onset incontinence, normal bowel movements reported Genitourinary: No new onset incontinence Musculoskeletal: Low back pain, bilateral knee pain Psychiatric: [Normal mood/affect] Neurological: [Denies weakness in extremities], [denies balance issues] Objective:: Physical Exam: General: Alert and oriented x3, no acute distress, pleasant and cooperative Lungs: Respirations even and unlabored, symmetrical chest expansion Eyes: PERRL Musculoskeletal: Flexion and extension of lumbar [spine] somewhat guarded secondary to pain, [antalgic gait noted] Neurological: Speech clear, no gross sensory deficit FINDINGS: Three views of the left knee reveal no evidence of fracture or dislocation. The bony alignment is normal. Mild degenerative changes present. There is no evidence of joint effusion. No localized soft tissue abnormality is seen. IMPRESSION: No acute abnormality identified. Reviewed, Interpreted and Dictated by Chaz Rodríguez III, MD Transcribed by Lay Varma Authenticated and [facility] FINDINGS: Three views of the right knee reveal no evidence of fracture or dislocation. The bony alignment is normal. There is moderate medial compartment degenerative change, stable since the prior films. There is a small joint effusion. No localized soft tissue abnormality is identified. IMPRESSION: No acute abnormality identified. Reviewed, Interpreted and Dictated by Chaz Rodríguez III, MD Transcribed by Lay Varma Authenticated and [facility] Assessment:: Low back pain, bilateral knee pain degenerative disc disease of lumbar spine with lumbar radiculopathy symptoms Plan:: Patient continues to experience significant pain in her low back and her knees. I have discussed with the patient that we can order MRI imaging of her knees however at this time she would like to wait till after the first of the year. Patient states that she is planning on retiring in July however is planning on keeping her [employer] insurance. I have also discussed with the patient that she may benefit from intra-articular knee injections however at this time she would like to wait. I will refill the patient's ropinirole 0.25 mg at bedtime and provide a 1 month supply of this medication. Patient will return to clinic in 1 month for reevaluation of symptoms and plan of care. Patient has been instructed to contact the clinic with any concerns before the next appointment. Dr. Paniagua has reviewed this note and agrees with this plan of care. This note was dictated using voice recognition software and make contain errors or omissions. [facility]
== END | disposition home or self-care (01) ==
PROVIDERS: PCP Nurse Practitioner Family; Visit Provider Nurse Practitioner Family
DX: M51.16 Intervertebral disc disorders with radiculopathy, lumbar region (principal); M25.561 Pain in right knee; M25.562 Pain in left knee
CPT/HCPCS: 99212; G0463

== ENCOUNTER → 2023-04-08 12:54 | Outpatient (CLI) | payer BC, SELFPAY ==
[2023-04-12 23:59] LABS: Pancreatic Elastase, Fecal 157 (>200)
== END ==
PROVIDERS: PCP Nurse Practitioner Family; Visit Provider Internal Medicine Gastroenterology
DX: R11.0 Nausea (principal); R14.0 Abdominal distension (gaseous)
CPT/HCPCS: 82656

== ENCOUNTER → 2023-05-12 11:20 | Outpatient (POV) | payer BC, SELFPAY ==
--- NOTE | 2023-05-12 11:50 | EXP.PAIN.SOA ---
[facility] Pain Management SOAP Note Subjective:: Patient is a pleasant 62-year-old female who presents today for follow-up. We are currently treating the patient for degenerative disc disease of lumbar spine with lumbar radiculopathy symptoms, low back pain, bilateral knee pain, restless leg syndrome. Today she rates her pain a 2 out of 10. Patient states that her knee pain is doing okay. Patient states that it is not always constant that it can come and go however when it does come about it is severe. Patient at our last visit was given a prescription for ropinirole 0.25 mg at bedtime and she states this has significantly improved her leg cramps. Patient does state that she ran out of the medication about 5 days ago. Patient does state that she does notice when she ran out that she was starting to have some sharp pains into her feet and she is unsure whether or not if this is related to anything else. Patient did also get her compounded cream and she states this does help significantly with her knee pain. Her Nigel is [phone]. Its been reviewed and appropriate. Review of Systems: General: No recent weight changes, no fever, no sleep disturbances Respiratory: No cough, no shortness of air, no recurring pulmonary infections Cardiovascular/peripheral vascular: No chest pain, no palpitations, no edema, no shortness of breath Gastrointestinal: No new onset incontinence, normal bowel movements reported Genitourinary: No new onset incontinence Musculoskeletal: Knee pain, bilateral leg cramps Psychiatric: [Normal mood/affect] Neurological: [Denies weakness in extremities], [denies balance issues] Objective:: Physical Exam: General: Alert and oriented x3, no acute distress, pleasant and cooperative Lungs: Respirations even and unlabored, symmetrical chest expansion Eyes: PERRL Musculoskeletal: Flexion and extension of bilateral knees somewhat guarded secondary to pain Neurological: Speech clear, no gross sensory deficit Assessment:: Degenerative disc disease of lumbar spine with lumbar radiculopathy symptoms, low back pain, bilateral knee pain, restless leg syndrome Plan:: I have discussed with the patient due to her continued bilateral knee pain that we can order the more advanced imaging however she states she would still like to wait until when she retires coming up the end of this year and then that way she does not have to try and work around her work schedule to get off for these appointments. I will refill the patient's ropinirole 0.25 mg at bedtime and provide a 3-month supply of this medication. I have also discussed with the patient due to some of her leg cramping and sharp pains into her bilateral feet that it may be beneficial to order updated labs. Patient denies any recent lab work by her PCP. I will order a CBC with differential and CMP. Patient will return to clinic in 1 month for reevaluation of symptoms and plan of care. Patient has been instructed to contact the clinic with any concerns before the next appointment. Dr. Paniagua has reviewed this note and agrees with this plan of care. This note was dictated using voice recognition software and make contain errors or omissions. [facility] Disclaimer: The information contained in this section may have been updated after the patient was seen, as this information can be updated by other users. Medical History Allergic rhinitis, unspecified COPD (chronic obstructive pulmonary disease) Dyspnea on exertion History of sleep apnea Hoarseness Mild persistent asthma Nocturnal hypoxemia Pulmonary emphysema Stopped smoking with greater than 30 pack year history Thyroid Nodule Surgical History History of section History of colonoscopy Previous back surgery Family History Other Cancer Diabetes Hypertension Socia
[2023-05-12 12:48] VITALS: BP 126/81; PULSE 48; RESP 18; O2SAT 94; BMI 30.1
== END | disposition home or self-care (01) ==
PROVIDERS: PCP Nurse Practitioner Family; Visit Provider Nurse Practitioner Family
DX: M51.16 Intervertebral disc disorders with radiculopathy, lumbar region (principal); M25.561 Pain in right knee; M25.562 Pain in left knee; G25.81 Restless legs syndrome
CPT/HCPCS: 99212; G0463

== ENCOUNTER → 2023-05-12 12:35 | Outpatient (CLI) | payer BC, SELFPAY ==
[2023-05-12 13:11] LABS: Basophils # 0.1 K/mm3 (0-0.2); Basophils % 0.8 % (0.1-2.0); Eosinophils # 0.2 K/mm3 (0.0-0.4); Eosinophils % 2.2 % (0.1-12.0); Hematocrit 46.2 % (37.0-47.0); Hemoglobin 15.1 g/dL (12.2-16.2); Lymphocytes % 22.2 % (10-50); Mean Corpuscular HGB Conc 32.6 g/dL (31.8-35.4); Mean Corpuscular Hemoglobin 30.2 pg (27.0-31.2); Mean Corpuscular Volume 92.5 fl (81-99); Mean Platelet Volume 8.5 fl (7.4-10.4); Monocytes # 0.5 K/mm3 (0.1-1.0); Monocytes % 5.2 % (1.7-9.3); Neutrophils # 6.3 K/mm3 (1.8-7.8); Neutrophils % 69.4 % (37.0-80.0); Platelet Count 274 K/mm3 (142-424); Red Cell Distribution Width 13.4 % (11.5-17.5); White Blood Count 9.1 K/mm3 (4.8-10.8)
[2023-05-12 13:39] LABS: Alanine Aminotransferase 44 U/L (12-78); Albumin Level 4.4 g/dl (3.5-5.0); Albumin/Globulin Ratio 1.8 (1.1-1.8); Alkaline Phosphatase 84 U/L (38-126); Anion Gap 12.3 mEq/L (5-15); Aspartate Amino Transferase 42 U/L (14-36); Bilirubin,Total 0.5 mg/dl (0.2-1.3); Blood Urea Nitrogen 12 mg/dl (7-17); Calcium 9.6 mg/dl (8.4-10.2); Carbon Dioxide 25 mmol/L (22.0-30.0); Chloride 106 mmol/L (98-107); Estimated Glomerular Filt Rate 73 ml/min (>60); GFR (African American) 88 ML/MIN (>60); Globulin 2.5 g/dL (1.3-3.2); Glucose 97 mg/dl (74-100); Potassium 4.3 mmoL/L (3.5-5.1); Sodium 139 mmol/L (136-145); Total Protein,Serum 6.9 g/dl (6.3-8.2)
== END ==
PROVIDERS: PCP Nurse Practitioner Family; Visit Provider Nurse Practitioner Family
DX: R25.2 Cramp and spasm (principal)
CPT/HCPCS: 36415; 80053; 85025

== ENCOUNTER → 2023-06-07 12:49 | Outpatient (CLI) | payer BC, SELFPAY ==
[2023-06-07 13:20] VITALS: PULSE 49; PULSE 55
== END ==
LOC: RT 12:49
PROVIDERS: PCP Nurse Practitioner Family; Visit Provider Internal Medicine Pulmonary Disease
DX: J44.9 Chronic obstructive pulmonary disease, unspecified (principal)
CPT/HCPCS: 94060; 94640

== ENCOUNTER → 2023-06-09 13:32 | Outpatient (POV) | payer BC, SELFPAY ==
--- NOTE | 2023-06-09 14:15 | EXP.PAIN.SOA ---
[facility] Pain Management SOAP Note Subjective:: Patient is a pleasant 62-year-old female who presents today for follow-up. We are currently treating the patient for degenerative disc disease of lumbar spine with lumbar radiculopathy symptoms, low back pain, bilateral knee pain, restless leg. Today she rates her pain a 2 out of 10. Patient states her pain is all in her right knee and states the last 3 weeks it is progressively worsened. Patient does complain of an aching, throbbing sensation that is worse with increased activity. She does state that even ambulation is difficult and that activities of daily living such as cooking and cleaning are altered due to the pain. Patient is currently managed on ropinirole 0.25 mg at bedtime. Patient denies any side effects from this medication. She is also prescribed compounding cream. 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 Patient does also state that she is having more issues with her eyelids drooping down and is possibly looking into having surgery to remove the excess skin as it is starting to interfere with her vision. Her Nigel is [phone]. Its been reviewed and appropriate. Review of Systems: General: No recent weight changes, no fever, no sleep disturbances Respiratory: No cough, no shortness of air, no recurring pulmonary infections Cardiovascular/peripheral vascular: No chest pain, no palpitations, no edema, no shortness of breath Gastrointestinal: No new onset incontinence, normal bowel movements reported Genitourinary: No new onset incontinence Musculoskeletal: Right knee pain Psychiatric: [Normal mood/affect] Neurological: [Denies weakness in extremities], [denies balance issues] Objective:: Physical Exam: General: Alert and oriented x3, no acute distress, pleasant and cooperative Lungs: Respirations even and unlabored, symmetrical chest expansion Eyes: PERRL Musculoskeletal: Flexion and extension of right knee somewhat guarded secondary to pain, [antalgic gait noted] Neurological: Speech clear, no gross sensory deficit Assessment:: Degenerative disc disease of lumbar spine with lumbar radiculopathy symptoms, knee pain, restless leg syndrome Plan:: Patient is experiencing worsening pain in her right knee with limited range of motion. Patient did have mild edema noted during today's exam. I have discussed with the patient that she may benefit from intra-articular injection. Patient has previously had these from Dr. Pardo years ago and it did provide significant improvement. Risk and benefits of this injection were explained to the patient and she would like to proceed forward with this plan of care. I have also discussed with the patient that she still would benefit from advanced imaging of this joint however she states she is not able to take off work right now to schedule this. We will follow-up at a later date regarding this imaging. I have also discussed with the patient that in future we can send a referral for plastic surgery for evaluation. Patient will be scheduled for a right intra-articular knee injection. Patient has been instructed to contact the clinic with any concerns before the next appointment. Dr. Paniagua has reviewed this note and agrees with this plan of care. This note was dictated using voice recognition software and make contain errors or omissions. [facility] Disclaimer: The information contained in this section may have been updated after the patient was seen, as this information can be updated by other users. Medical History Allergic rhinitis, unspecified COPD (chronic obstructive pulmonary disease) Dyspnea on exertion History of sleep apnea Hoarseness Mild persistent asthma Nocturnal hypoxemia Pulmonary emphysema Stopped smoking with greater than 30 pack year history Thyroid Nodule Surgical History (Revie
[2023-06-09 15:07] VITALS: BP 152/101; PULSE 95; RESP 18; O2SAT 95; BMI 30.1
== END ==
PROVIDERS: PCP Nurse Practitioner Family; Visit Provider Nurse Practitioner Family
DX: M51.16 Intervertebral disc disorders with radiculopathy, lumbar region (principal); M25.561 Pain in right knee; M25.562 Pain in left knee; G25.81 Restless legs syndrome
CPT/HCPCS: 99212; G0463

== ENCOUNTER → 2023-06-22 17:16 | Outpatient (CLI) | payer BC, SELFPAY | LOC: RT 17:17 | PROVIDERS: PCP Nurse Practitioner Family; Visit Provider Internal Medicine Pulmonary Disease | DX: G47.34 Idiopathic sleep related nonobstructive alveolar hypoventilation (principal) | CPT/HCPCS: 94762 ==

== ENCOUNTER 2023-08-30 09:01 | Day surgery (SDC) | payer BC, SELFPAY ==
[2023-08-30 09:15] VITALS: BP 135/80; PULSE 75; RESP 16; O2SAT 94; BMI 30.8
[2023-08-30 09:40] VITALS: BP 120/81; PULSE 78; RESP 18; O2SAT 94
--- NOTE | 2023-08-30 09:41 | EXP.PAIN.PRO ---
Procedure Date: 08/30/23 Time: 09:00 Anesthesiologist:: Bubba Hair CRNA Complications:: None Pre-procedure Diagnosis:: DJD right knee. Chronic right knee pain. Post-procedure Diagnosis:: Same. Indications for Procedure:: Patient is a very pleasant 63-year-old female comes our clinic today for a right intra-articular knee injection. Patient reports right knee pain that is constant, dull, aching. Patient reports knee pain increasing significantly with ambulation and/or standing. She rates her pain 7/10. Procedure Details:: Details of the procedure explained to the patient. The patient taken procedure room placed in sitting position. The area over the knee was cleaned using chlorhexidine as a cleansing solution. Using a 25-gauge inch and half needle the right knee joint was accessed with ease. After negative aspiration 8 cc of a solution containing 0.25% Marcaine +1% lidocaine and 40 mg of Depo-Medrol was injected. Patient tolerated procedure without difficulty. There are no complications. Plan and Disposition:: Patient was discharged without incident.
[2023-08-30 10:24] VITALS: BP 120/77; PULSE 70; RESP 18; O2SAT 94
[2023-08-30] MEDS: LIDOCAINE 1% 5ML PF VIAL 5 ML (10:24)
[2023-08-30] MEDS: methylPREDNISolone ACETATE 80MG/ML VIAL 80 MG (10:24)
[2023-08-30] MEDS: BUPIVACAINE 0.25% 10ML INJ 25 MG IJ (10:24)
[2023-08-30 10:41] VITALS: BP 120/77; PULSE 70; RESP 18; O2SAT 94
== END 2023-08-30 09:40 | disposition home or self-care (01) ==
PROVIDERS: PCP Nurse Practitioner Family; Visit Provider Nurse Anesthetist, Certified Registered
DX: M17.11 Unilateral primary osteoarthritis, right knee (principal); M25.561 Pain in right knee; G89.29 Other chronic pain
CPT/HCPCS: 20610; J1040

== ENCOUNTER → 2023-09-14 09:04 | Outpatient (POV) | payer BC, SELFPAY ==
--- NOTE | 2023-09-14 09:18 | A.OFFVIS_ITS ---
[facility] Pain Management SOAP Note Subjective:: Patient is a pleasant 62-year-old female who presents today for follow-up of right knee intra-articular injection on 08/30/2023. We are currently treating the patient for degenerative disc disease of lumbar spine with lumbar radiculopathy symptoms, low back pain, bilateral knee pain, restless leg. Today she rates her pain a 2 out of 10. She states she had at least 85% improvement in her right knee symptoms following this injection. She states that joint has been able to increase the activity and range of motion with decreased pain. Today she states though that she is having more pain in her left foot with sharp shooting pains and has been having some low back issues as well. Patient feels like something is going on with that foot in order to cause the amount of pain it is. 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 Patient is currently managed on ropinirole 0.25 mg at bedtime. Patient denies any side effects from this medication and states she does not need refills at this time. She is prescribed compounded cream and states this does continue to help. Her Nigel has been reviewed and appropriate. Review of Systems: General: No recent weight changes, no fever, no sleep disturbances Respiratory: No cough, no shortness of air, no recurring pulmonary infections Cardiovascular/peripheral vascular: No chest pain, no palpitations, no edema, no shortness of breath Gastrointestinal: No new onset incontinence, normal bowel movements reported Genitourinary: No new onset incontinence Musculoskeletal: Left foot/ankle pain Psychiatric: [Normal mood/affect] Neurological: [Denies weakness in extremities], [denies balance issues] Objective:: Physical Exam: General: Alert and oriented x3, no acute distress, pleasant and cooperative Lungs: Respirations even and unlabored, symmetrical chest expansion Eyes: PERRL Musculoskeletal: Flexion and extension of left ankle somewhat guarded secondary to pain Neurological: Speech clear, no gross sensory deficit Assessment:: Degenerative disc disease of lumbar spine with lumbar radiculopathy symptoms, low back pain, bilateral knee pain, restless leg syndrome Plan:: Patient has had significant improvement of her right knee symptoms following her intra-articular injection and does not require any additional injection therapy at this location. Patient is experiencing worsening pain in her left foot and ankle with limited range of motion. I discussed with the patient that I will order x-ray imaging as well as MRI without contrast to follow. Patient will return to clinic following this imaging in 1 month for reevaluation of symptoms and plan of care. Patient has been instructed to contact the clinic with any concerns before the next appointment. Dr. Paniagua has reviewed this note and agrees with this plan of care. This note was dictated using voice recognition software and make contain errors or omissions. [facility] Disclaimer: The information contained in this section may have been updated after the patient was seen, as this information can be updated by other users. Medical History Allergic rhinitis, unspecified COPD (chronic obstructive pulmonary disease) Dyspnea on exertion History of sleep apnea Hoarseness Mild persistent asthma Nocturnal hypoxemia Pulmonary emphysema Stopped smoking with greater than 30 pack year history Thyroid Nodule Vocal cord edema Surgical History History of section History of colonoscopy Previous back surgery Family History Other Cancer Diabetes Hypertension Social History Smoking Status: Former smoker tobacco type: cigarettes packs per day: 1 alcohol intake: never substance use type: denies use current occupational status: employed Travel in the last 8 weeks: None household members: none housing: house number of children: 1
[2023-09-14 09:44] VITALS: BP 126/75; PULSE 59; RESP 18; O2SAT 94; BMI 30.9
== END ==
LOC: SC.PAIN 09:04
PROVIDERS: PCP Nurse Practitioner Family; Visit Provider Nurse Practitioner Family
DX: M51.16 Intervertebral disc disorders with radiculopathy, lumbar region (principal); M25.561 Pain in right knee; M25.562 Pain in left knee; G25.81 Restless legs syndrome; M25.572 Pain in left ankle and joints of left foot
CPT/HCPCS: 99212; G0463

== ENCOUNTER 2023-09-14 10:02 | Outpatient (CLI) | payer BC, SELFPAY ==
--- NOTE | 2023-09-14 10:08 | XR_ITS ---
FINAL REPORT CLINICAL HISTORY: LT FOOT/ANKLE PAIN FINDINGS: Left ankle Three views were obtained. There is no acute fracture or dislocation. The joint spaces appear normal. No soft tissue abnormality is identified. The mortise is intact. There is a moderate plantar spur. IMPRESSION: No acute process. Reviewed, Interpreted and Dictated by Khadar Sellers MD Transcribed by Janice Jefferson Authenticated and . [facility]
--- NOTE | 2023-09-14 10:08 | XR_ITS ---
FINAL REPORT CLINICAL HISTORY: LT FOOT/ANKLE PAIN FINDINGS: Left foot Three views were obtained. There is no acute fracture or dislocation. The joint spaces appear normal. No soft tissue abnormality is identified. There is a moderate plantar spur. IMPRESSION: No acute process. Reviewed, Interpreted and Dictated by Khadar Sellers MD Transcribed by Janice Jefferson Authenticated and [facility]
== END 2023-09-14 23:59 ==
LOC: RAD 10:03
PROVIDERS: PCP Nurse Practitioner Family; Visit Provider Nurse Practitioner Family
DX: M25.572 Pain in left ankle and joints of left foot (principal)
CPT/HCPCS: 73610; 73630

== ENCOUNTER 2023-09-16 11:53 | Outpatient (CLI) | payer BC, SELFPAY ==
[2023-09-15 16:42] VITALS: BMI 30.9
--- NOTE | 2023-09-16 11:54 | CT_ITS ---
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 A noncontrast coronary calcium scan was performed. A CT attenuation threshold of 130 Hounsfield units (HU) was used for the detection of calcium in contiguous voxels of 1 sq mm in area to be counted as individual lesions. Bolus tracking in the ascending aorta with a threshold of 180 HU was performed. Immediately afterwards, ECG synchronized cardiac CT was then performed from the cardiac base to apex using retrospective gating with ECG tube current modulation. A total of 85 mL of Isovue 370 mg/mL contrast medium was administered at 5 mL/sec followed by a saline flush using a biphasic injection protocol. A tube voltage of 120 KVp was used. The patient received the following medications prior to the cardiac CT. 0.8 mg of sublingual nitroglycerin The average heart rate at the time of acquisition was 67 bpm and regular. Image Reconstruction Transaxial images were reconstructed at 0.67 mm slide thickness. Data was reviewed interactively on an advanced workstation capable of 2 and 3-dimensional displays in all conventional reconstruction formats, including multiplanar reformations, maximum intensity projections, curved multiplanar reformations, and volume rendered reconstructions. When applicable, selected routine images describing the relevant coronary anatomy and pathology were saved and sent to PACS. Complications None Technical Quality Overall image quality was good. Coronary artery opacification was adequate. Total DLP (Dose-Length Product) is 1231.1 mGy-cm. The reported value represents the total of one or more individual components during the CT acquisition of this date and at this time, and as such, the same value may appear in more than one CT report depending on the interpreting/reporting physicians. COMPARISON None FINDINGS CT Coronary Calcium Scoring LMA (Left Main Artery) = 101 LAD (Left Anterior Descending) = 63 LCX (Left Coronary Circumflex) = 0 RCA (Right Coronary Artery) = 24 Total Calcium Score = 188 using the AJ-130 method. The observed calcium score of 188 is at 91st percentile for subjects of the same age, sex, and race/ethnicity. The interpretation of the calcium heart score is based on the following continuum*: 0 = no calcified plaque detected (risk of coronary artery disease is very low ??? less than 5%) 1-10 = calcium detected in extremely minimal levels (risk of coronary diseases is still low ??? less than 10%) 11-100 = mild levels of plaque detected with certainty (mild or minimal narrowing of heart arteries is likely) 101-400 = definite,at least moderate levels of plaque detected (relatively high risk of a heart attack within 3-5 years) >401-999 = extensive levels of plaque detected (high risk of heart attack, high levels of vascular disease are present, high likelihood of at least one significant coronary narrowing) *The calcium heart score quantifies the burden of coronary calcification/plaque in the coronary arteries. The calcium heart score is not able to evaluate the presence or burden of non-calcified (i.e. soft) plaque. There is also identifiable calcification in the ascending thoracic aorta, but not the aortic valve, mitral annulus or mitral valve, pericardium, or myocardium. Coronary CT Angiography The coronary arterial system is right dominant. Quantitative Stenosis Grading: Left Main (LM): The left main originates normally from the left sinus of Valsalva. The LM bifurcates into the left anterior descending artery and left circumflex artery. There is calcification in the proximal and the distal LM with < 30% luminal stenosis present. Left Anterior Descending (LAD) and Diagonal Branches: The LAD gives off 2 diagonal branch(es). There is mild calcification in the proximal and mid-LAD with 30-50% luminal stenosis. There is also non-calcified plaque in the mid-LAD with approximately 30-50% luminal stenosis. There is no evidence of LAD bridge. Left Circumflex (LCX) and Obtuse Marginals (OM): The LCX gives off 1 Obtuse Marginal (OM) branch(es). The LCX and its branches are patent with no evidence of atherosclerosis. Right Coronary Artery (RCA): The RCA originates normally from the right sinus of Valsalva. The RCA gives off a posterior descending artery (PDA) and posterolateral (PL) branches. There is mild calcification in the proximal RCA, but without evidence of luminal stenosis. Non-Coronary Cardiac Findings: Analysis of the left ventricular (LV) structure and function was performed after 3-D reconstruction of the LV from axial images, with user-corrected automatic contouring for assessment of LV volumes and user-defined reconstruction from oblique planes for measurement of 3-D cardiac structure and function. LVEDV: 139 mL LVESV: 49 mL SV: 90 mL LVEF: 65% -The left ventricle is normal in size with normal left ventricular systolic function. -There is no left atrial appendage filling defect. Two right pulmonary veins and two left pulmonary veins drain normally into the left atrium. -No pericardial thickening or calcification. -Central and branch pulmonary arteries in the [id number] are unremarkable. -Thoracic aorta within the visualized thoracic aortic-branches in the [id number] is unremarkable. Extracardiac Structures No significant extra-cardiac findings. Note, however, that this study is focused on the cardiac findings. IMPRESSION -Presence of coronary calcification with an Agatston score = 188 using the AJ-130 method. -The observed calcium score of 188 is at 91st percentile for subjects of the same age, sex, and race/ethnicity. -Mild multivessel disease, but no evidence of significant flow-limiting atherosclerosis of the coronary arteries. -CAD-RADS 2. Management recommendations per ACC/AHA guidelines*, as clinically appropriate. *Recommendations: CAD RADS 0: Reassurance. Consider non-atherosclerotic causes of chest pain. CAD RADS 1: Consider non-atherosclerotic causes of chest pain. Consider preventive therapy and risk factor modification. CAD RADS 2: Consider non-atherosclerotic causes of chest pain. Consider preventive therapy and risk factor modification, particularly for patients with nonobstructive plaque in multiple segments. CAD RADS 3: Consider further functional testing. Consider symptom-guided anti-ischemic and preventive pharmacotherapy as well as risk factor modification per published guideline statements. CAD RADS 4A: Consider further functional testing or invasive coronary angiography with revascularization per published guideline statements. Consider symptom-guided anti-ischemic and preventive pharmacotherapy as well as risk factor modification per published guideline statements. CAD RADS 4B: Invasive coronary angiography recommended with revascularization per published guideline statements. Consider symptom-guided anti-ischemic and preventive pharmacotherapy as well as risk factor modification per published guideline statements. CAD RADS 5: Consider invasive angiography and/or viability assessment with revascularization per published guideline statements. Consider symptom-guided anti-ischemic and preventive pharmacotherapy as well as risk factor modification per published guideline statements. CRITICAL RESULT None COMMUNICATION Per this written report The coronary and cardiac findings of this CCTA were reviewed, reported, and signed by Guido Jacobson MD (Division Service Manager) Conclusion Electronically signed by : Shyanne Jacobson MD 09/27/2023 10:55:02
[2023-09-16 12:20] VITALS: BP 123/79; PULSE 53; RESP 18; O2SAT 97
[2023-09-16 12:44] LABS: Blood Urea Nitrogen 10 mg/dl (7-17); Calcium 9.7 mg/dl (8.4-10.2); Carbon Dioxide 26 mmol/L (22.0-30.0); Chloride 107 mmol/L (98-107); Creatinine Clearance Estimated 73 mL/min (50-200); Estimated Glomerular Filt Rate 85 ml/min (>60); GFR (African American) 103 ML/MIN (>60); Glucose 106 mg/dl (74-100); Sodium 140 mmol/L (136-145)
[2023-09-16 13:15] VITALS: BP 115/73; PULSE 66; RESP 16; TEMP 36.6; O2SAT 99
[2023-09-16] MEDS: NITROGLYCERIN 0.4MG SL TABLET 0.800000000000000044 MG SL (13:17)
[2023-09-16] MEDS: SODIUM CHLORIDE 0.9% 10ML SYR (RAD ONLY) 10 ML IV (13:18)
[2023-09-16] MEDS: IOPAMIDOL-370 (76%);100ML BOTTLE 85 ML IV (13:18)
[2023-09-16] MEDS: 0.9 % SODIUM CHLORIDE 50 ML VIAL IV (13:18)
[2023-09-16 13:30] VITALS: BP 121/71; PULSE 53; RESP 16; O2SAT 98
[2023-09-16 13:40] VITALS: BP 108/61; PULSE 66; RESP 16; O2SAT 99
== END 2023-09-16 13:45 | disposition home or self-care (01) ==
PROVIDERS: PCP Nurse Practitioner Family; Visit Provider Physician Assistant
DX: R06.09 Other forms of dyspnea (principal); R07.9 Chest pain, unspecified; I25.10 Atherosclerotic heart disease of native coronary artery without angina pectoris; I27.20 Pulmonary hypertension, unspecified; J43.9 Emphysema, unspecified; J44.9 Chronic obstructive pulmonary disease, unspecified; Z86.69 Personal history of other diseases of the nervous system and sense organs
CPT/HCPCS: 75571; 75574; 80048; Q9967

== ENCOUNTER 2023-10-04 11:31 | Outpatient (CLI) | payer BC, SELFPAY ==
--- NOTE | 2023-10-04 11:39 | XR_ITS ---
FINAL REPORT CLINICAL HISTORY: lower back pain x 2 weeks no known trauma COMPARISON: None FINDINGS: 3 views of the lumbar spine were obtained. Fusion L5-S1. There is no evidence of fracture or dislocation. The vertebral alignment is normal. There is mild and moderate degenerative change. There is mild rightward curvature of the lumbar spine. Vascular calcifications are noted. No acute paraspinous soft tissue abnormalities identified. IMPRESSION: Degenerative changes without acute bony abnormality. Reviewed, Interpreted and Dictated by Chaz Rodríguez III, MD Transcribed by Kenia Watson Authenticated and [facility]
== END 2023-10-04 23:59 ==
LOC: RAD 11:32
PROVIDERS: PCP Nurse Practitioner Family; Visit Provider Nurse Practitioner Family
DX: M51.36 Other intervertebral disc degeneration, lumbar region (principal); M54.16 Radiculopathy, lumbar region
CPT/HCPCS: 72100

== ENCOUNTER 2023-10-04 12:55 | Outpatient (CLI) | payer BC, SELFPAY ==
[2023-10-04 13:28] LABS: Benzodiazepines Screen,Urine Negative ng/ml (<200)
[2023-10-04 13:29] LABS: Amphetamine/Metha Screen,Urine Negative ng/ml (<1000); Barbiturates Screen,Urine Negative ng/ml (<200)
[2023-10-04 13:30] LABS: Methadone Screen,Urine Negative ng/ml (<300)
[2023-10-04 13:32] LABS: Opiate Screen,Urine Positive ng/ml (<300)
[2023-10-04 13:33] LABS: Phencyclidine Screen,Urine Negative ng/ml (<25)
[2023-10-04 13:49] LABS: Alanine Aminotransferase 47 U/L (12-78); Albumin Level 4.3 g/dl (3.5-5.0); Albumin/Globulin Ratio 1.7 (1.1-1.8); Alkaline Phosphatase 94 U/L (38-126); Anion Gap 10.5 mEq/L (5-15); Aspartate Amino Transferase 44 U/L (14-36); Bilirubin,Total 0.7 mg/dl (0.2-1.3); Blood Urea Nitrogen 10 mg/dl (7-17); Calcium 9.9 mg/dl (8.4-10.2); Carbon Dioxide 27 mmol/L (22.0-30.0); Chloride 105 mmol/L (98-107); Estimated Glomerular Filt Rate 73 ml/min (>60); GFR (African American) 88 ML/MIN (>60); Globulin 2.5 g/dL (1.3-3.2); Glucose 95 mg/dl (74-100); Potassium 4.5 mmoL/L (3.5-5.1); Sodium 138 mmol/L (136-145); Total Protein,Serum 6.8 g/dl (6.3-8.2)
[2023-10-04 14:19] LABS: Thyroid Stimulating Hormone 0.78 uIU/mL (0.465-4.68)
[2023-10-04 14:24] LABS: Cocaine Screen,Urine Negative ng/ml (<300)
[2023-10-04 14:41] LABS: Ferritin 80.3 ng/ml (11.1-264)
[2023-10-04 14:42] LABS: Vitamin B12 > 1000 pg/mL (239-931)
[2023-10-04 15:03] LABS: Cannabinoid Screen,Urine Positive ng/ml (<50)
== END 2023-10-04 23:59 ==
LOC: LAB.DROPOF 12:55
PROVIDERS: PCP Nurse Practitioner Family; Visit Provider Nurse Practitioner Family
DX: R63.5 Abnormal weight gain (principal); Z79.899 Other long term (current) drug therapy; R74.01 Elevation of levels of liver transaminase levels; R79.89 Other specified abnormal findings of blood chemistry
CPT/HCPCS: 80053; 80307; 82607; 82728; 84443

== ENCOUNTER 2023-10-06 09:21 | Outpatient (CLI) | payer BC, SELFPAY ==
--- NOTE | 2023-10-06 09:23 | CA_ITS ---
FINAL REPORT CLINICAL HISTORY: PAIN AND EDEMA BILATERAL POPLITEAL FOSSA'S COMPARISON: None FINDINGS: Color Doppler, duplex Doppler and compression sonography of the bilateral lower extremities was performed. There is no evidence of deep venous thrombosis from the level of the groin to the calf. The deep veins are patent and compressible. IMPRESSION: No evidence of deep venous thrombosis bilateral lower extremities. Reviewed, Interpreted and Dictated by Chaz Rodríguez III, MD Transcribed by Kenia Watson Authenticated and . [facility]
== END 2023-10-06 23:59 ==
LOC: RT 09:23
PROVIDERS: PCP Nurse Practitioner Family; Visit Provider Physician Assistant
DX: M79.604 Pain in right leg (principal); M79.605 Pain in left leg
CPT/HCPCS: 93970

== ENCOUNTER → 2023-10-12 08:57 | Outpatient (POV) | payer BC, SELFPAY ==
--- NOTE | 2023-10-12 09:42 | A.OFFVIS_ITS ---
[facility] Pain Management SOAP Note Subjective:: Patient is a pleasant 63-year-old female who presents today for follow-up x-ray imaging of her left ankle and foot. We are currently treating the patient for degenerative disc disease of lumbar spine with lumbar radiculopathy symptoms, low back pain, bilateral knee pain, restless leg syndrome, left ankle/foot pain. Today she rates her pain a 2 out of 10. Patient denies any new trauma or injury. She does state that she continues to have the same pains with occasional random sharp shooting sensations. Patient does state that she still questions whether or not if it is all related to a surgery she had back in 2010 in her left foot. Patient does states she is also experiencing pain into her low back. At her last visit we did discuss ordering advanced imaging after her x-rays and she would like to proceed forward with this plan of care. Patient is currently managed with ropinirole 0.25 mg at night. She denies any side effects from this medication. Her Nigel has been reviewed and is appropriate. Review of Systems: General: No recent weight changes, no fever, no sleep disturbances Respiratory: No cough, no shortness of air, no recurring pulmonary infections Cardiovascular/peripheral vascular: No chest pain, no palpitations, no edema, no shortness of breath Gastrointestinal: No new onset incontinence, normal bowel movements reported Genitourinary: No new onset incontinence Musculoskeletal: Low back pain, left foot/ankle pain Psychiatric: [Normal mood/affect] Neurological: [Denies weakness in extremities], [denies balance issues] Objective:: Physical Exam: General: Alert and oriented x3, no acute distress, pleasant and cooperative Lungs: Respirations even and unlabored, symmetrical chest expansion Eyes: PERRL Musculoskeletal: Flexion and extension of lumbar [spine] somewhat guarded secondary to pain, [antalgic gait noted] Neurological: Speech clear, no gross sensory deficit Assessment:: Degenerative disc disease of lumbar spine with lumbar radiculopathy symptoms, low back pain, bilateral knee pain, restless leg pain, left ankle/foot pain Plan:: I will order the patient an MRI of her left ankle to rule out possible tears. Patient does continue to experience significant pain in this joint. I have also discussed with the patient due to her continued pain at her low back it may be beneficial to do a lumbar epidural steroid injection and also evaluate whether this helps her overall left leg and ankle symptoms. Patient is agreeable to this however would like to do the MRI imaging first. We will follow-up with this after imaging. Patient will return to clinic in 1 month for reevaluation of symptoms and plan of care. Patient has been instructed to contact the clinic with any concerns before the n ext appointment. Dr. Paniagua has reviewed this note and agrees with this plan of care. This note was dictated using voice recognition software and make contain errors or omissions. [facility] Disclaimer: The information contained in this section may have been updated after the patient was seen, as this information can be updated by other users. Medical History Allergic rhinitis, unspecified COPD (chronic obstructive pulmonary disease) Dyspnea on exertion History of sleep apnea Hoarseness Mild persistent asthma Nocturnal hypoxemia Pulmonary emphysema Stopped smoking with greater than 30 pack year history Thyroid Nodule Vocal cord edema Surgical History History of section History of colonoscopy Previous back surgery Family History Other Cancer Diabetes Hypertension Social History Smoking Status: Former smoker tobacco type: cigarettes packs per day: 1 alcohol intake: never substance use type: denies use current occupational status: retired Travel in the last 8 weeks: None household members: none housing: house number of children: 1
[2023-10-12 10:26] VITALS: BP 120/87; PULSE 67; RESP 18; O2SAT 92; BMI 30.9
== END ==
LOC: SC.PAIN 08:57
PROVIDERS: PCP Nurse Practitioner Family; Visit Provider Nurse Practitioner Family
DX: M51.16 Intervertebral disc disorders with radiculopathy, lumbar region (principal); M25.561 Pain in right knee; M25.562 Pain in left knee; G25.81 Restless legs syndrome; M25.572 Pain in left ankle and joints of left foot
CPT/HCPCS: 99212; G0463

== ENCOUNTER 2023-11-05 10:48 | Outpatient (CLI) | payer BC, SELFPAY ==
--- NOTE | 2023-11-05 10:51 | MR_ITS ---
FINAL REPORT CLINICAL HISTORY: LEFT ANKLE PAIN FINDINGS: Multiplanar MR imaging of the left ankle was performed without contrast. The bony structures are intact without evidence of fracture, bone bruise or marrow edema. No osteochondral lesion is identified. The ligaments are intact without evidence of injury. There is mild posterior tibial tenosynovitis. There is peroneus longus tendinosis with mild tenosynovitis. Posterior plantar fasciitis is seen with a plantar calcaneal spur and partial tear at the insertion. No significant joint effusion is seen. The musculature is intact. There is no evidence of soft tissue mass or cyst. IMPRESSION: Posterior tibial tenosynovitis and peroneus longus tendinosis with mild tenosynovitis. Posterior plantar fasciitis with partial tear at the insertion. Reviewed, Interpreted and Dictated by Chaz Rodríguez III, MD Transcribed by Radha Sanford Authenticated and [facility]
== END 2023-11-05 23:59 ==
LOC: RAD 10:48
PROVIDERS: PCP Nurse Practitioner Family; Visit Provider Nurse Practitioner Family
DX: M25.572 Pain in left ankle and joints of left foot (principal)
CPT/HCPCS: 73721

== ENCOUNTER 2023-11-09 08:25 | Outpatient (POV) | payer BC, SELFPAY ==
[2023-11-09 08:45] VITALS: BP 143/83; PULSE 62; RESP 18; TEMP 36.7; O2SAT 100; BMI 30.1
--- NOTE | 2023-11-09 10:03 | EXP.PAIN.SOA ---
[facility] Pain Management SOAP Note Subjective:: Patient is a pleasant 63-year-old female who presents today for follow-up of left ankle MRI. Today she rates her pain a 2 out of 10. Patient denies any new trauma or injury. She does state that she continues to have intermittent pain in her left ankle and foot. Patient does state that she just wants to make sure that nothing is worsening that would cause overall change in her symptoms as she gets older. Patient states she has been using compounded cream and it does help some however she continues to have this pain and the constant numbness. Patient is prescribed ropinirole 0.25 mg at night from our office. She denies any side effects from this medication. Her Nigel has been reviewed and is appropriate. Review of Systems: General: No recent weight changes, no fever, no sleep disturbances Respiratory: No cough, no shortness of air, no recurring pulmonary infections Cardiovascular/peripheral vascular: No chest pain, no palpitations, no edema, no shortness of breath Gastrointestinal: No new onset incontinence, normal bowel movements reported Genitourinary: No new onset incontinence Musculoskeletal: Left ankle pain Psychiatric: [Normal mood/affect] Neurological: [Denies weakness in extremities], [denies balance issues] Objective:: Physical Exam: General: Alert and oriented x3, no acute distress, pleasant and cooperative Lungs: Respirations even and unlabored, symmetrical chest expansion Eyes: PERRL Musculoskeletal: Flexion and extension of left ankle somewhat guarded secondary to pain, [antalgic gait noted] Neurological: Speech clear, no gross sensory deficit FINDINGS: Multiplanar MR imaging of the left ankle was performed without contrast. The bony structures are intact without evidence of fracture, bone bruise or marrow edema. No osteochondral lesion is identified. The ligaments are intact without evidence of injury. There is mild posterior tibial tenosynovitis. There is peroneus longus tendinosis with mild tenosynovitis. Posterior plantar fasciitis is seen with a plantar calcaneal spur and partial tear at the insertion. No significant joint effusion is seen. The musculature is intact. There is no evidence of soft tissue mass or cyst. IMPRESSION: Posterior tibial tenosynovitis and peroneus longus tendinosis with mild tenosynovitis. Posterior plantar fasciitis with partial tear at the insertion. Reviewed, Interpreted and Dictated by Chaz Rodríguez III, MD Transcribed by Radha Sanford Authenticated and [facility] Assessment:: Degenerative disc disease of lumbar spine with lumbar radiculopathy symptoms, low back pain, bilateral knee pain, restless leg syndrome, left ankle/foot pain Plan:: I did review over the MRI findings and discussed with the patient her mild tenosynovitis with plantar fasciitis, calcaneal spur and partial tear. I have discussed with patient that it may be beneficial to talk to a specialist regarding this and see if there are additional treatments available. Patient is agreeable to this plan of care. We will send a referral to Dr. Friedman's office for evaluation of her left ankle and foot pain. I have also discussed with the patient in future she may benefit from nerve blocks or peripheral nerve stimulator from our office. Patient is interested in these options as well. We will follow-up with her after her appointment with Dr. Friedman in 6 weeks for reevaluation of symptoms and plan of care. I will also refill the patient's ropinirole and provide a 3-month supply of this medication. Patient has been instructed to contact the clinic with any concerns before the next appointment. Dr. Paniagua has reviewed this note and agrees with this plan of care. This note was dictated using voice recognition software and make contain errors or omissions. [facility] Disclaimer: The information contained in this section may have been updated after the patient was seen, as this information can be updated by other users. Medical History Allergic rhinitis, unspecified COPD (chronic obstructive pulmonary disease) Dyspnea on exertion History of sleep apnea Hoarseness Mild persistent asthma Nocturnal hypoxemia Pulmonary emphysema Stopped smoking with greater than 30 pack year history Thyroid Nodule Vocal cord edema Surgical History History of section History of colonoscopy Previous back surgery Family History Other Cancer Diabetes Hypertension Social History Smoking Status: Former smoker tobacco type: cigarettes packs per day: 1 alcohol intake: never substance use type: denies use current occupational status: other Travel in the last 8 weeks: None household members: none housing: house number of children: 1
== END 2023-11-09 23:59 | disposition home or self-care (01) ==
PROVIDERS: PCP Nurse Practitioner Family; Visit Provider Nurse Practitioner Family
DX: M51.16 Intervertebral disc disorders with radiculopathy, lumbar region (principal); M54.50 Low back pain, unspecified; M25.561 Pain in right knee; M25.562 Pain in left knee; G25.81 Restless legs syndrome; M25.572 Pain in left ankle and joints of left foot
CPT/HCPCS: 99212; G0463

== ENCOUNTER 2023-11-22 14:52 | Outpatient (CLI) | payer BC, SELFPAY ==
--- NOTE | 2023-11-22 14:53 | CT_ITS ---
FINAL REPORT TECHNIQUE: Thin section axial images were obtained from the lung apices to the upper abdomen by computed tomography. Reformatted images were obtained and reviewed. This study was performed with techniques to keep radiation doses al low as reasonably achievable (ALARA). Individualized dose reduction techniques using automated exposure control or adjustment of mA and/or kV according to the patient's size were employed. CLINICAL HISTORY: lung cancer screening former smoker, quit 8.5 years ago. smoked 1 ppd. smoker for 35 years COMPARISON: 11/19/2022 FINDINGS: CHEST CT LOW DOSE 63-year-old female, former smoker who quit 8 years ago, [id number] history. CTDI vol (mGy): 2.9 DLP (mGy-cm): 98.73 There is no axillary adenopathy. There are several small mediastinal nodes, nonspecific. The heart is normal in size. There is no pericardial or pleural effusion. Several calcified granulomas are identified. There are mild coronary artery calcifications present. There is moderate emphysema and mild pulmonary scarring. Lung window images demonstrate a pair of 2 mm nodules in the lateral right middle lobe both seen on image #51, and stable since the prior CT.. Limited images of the upper abdomen are unremarkable. IMPRESSION: Lung-RADS category 1. Recommend 12 month follow up low dose chest CT. Reviewed, Interpreted and Dictated by Chaz Rodríguez III, MD Transcribed by Lay Varma Authenticated and [facility]
== END 2023-11-22 23:59 ==
LOC: RAD 14:53
PROVIDERS: PCP Nurse Practitioner Family; Visit Provider Internal Medicine Pulmonary Disease
DX: F17.210 Nicotine dependence, cigarettes, uncomplicated (principal)
CPT/HCPCS: 71271

== ENCOUNTER 2023-12-22 13:28 | Outpatient (POV) | payer BC, SELFPAY ==
--- NOTE | 2023-12-22 13:41 | A.OFFVIS_ITS ---
[facility] Pain Management SOAP Note Subjective:: Patient is a pleasant 53-year-old female who presents today for follow-up. Today she states her pain is not as bad however last night she said that her right knee was a 9 out of 10 pain. Patient states it is a constant aching, throbbing sensation that is worse with increased activity or ambulation. Patient states that she has continued to try and walk 3 to 5 miles per day and this aggravates her overall knee pain. Patient does state the pain is interfering with her ability to perform activities of daily living. Patient would like to see about doing some injections for this joint. Patient states that she knows that she does need a knee replacement however she would like to postpone it as long as possible. Patient overall states from our last visit that Dr. Friedman did put her in a walking boot for about 3 months however did not really seem to make much improvement. She does state that her bursa that was on that joint seems to have make a larger tear and that the pain improved after that. She states that her ankle is not bothering her like what it had been. Patient is managed with ropinirole 0.25 mg at bedtime however she states that she does not think that she needs any refills. She states she will call if something changes. Her Nigel has been reviewed and is appropriate. Review of Systems: General: No recent weight changes, no fever, no sleep disturbances Respiratory: No cough, no shortness of air, no recurring pulmonary infections Cardiovascular/peripheral vascular: No chest pain, no palpitations, no edema, no shortness of breath Gastrointestinal: No new onset incontinence, normal bowel movements reported Genitourinary: No new onset incontinence Musculoskeletal: Right knee pain Psychiatric: [Normal mood/affect] Neurological: [Denies weakness in extremities], [denies balance issues] Objective:: Physical Exam: General: Alert and oriented x3, no acute distress, pleasant and cooperative Lungs: Respirations even and unlabored, symmetrical chest expansion Eyes: PERRL Musculoskeletal: Flexion and extension of right knee somewhat guarded secondary to pain, [antalgic gait noted] Neurological: Speech clear, no gross sensory deficit Assessment:: Degenerative disc disease of lumbar spine with lumbar radiculopathy symptoms, low back pain, bilateral knee pain, restless leg syndrome, left ankle/foot pain Plan:: Patient is experiencing worsening pain in her right knee with limited range of motion. I have discussed with patient that she may benefit from an intra- articular knee injection. Risk and benefits were discussed with patient and she would like to proceed forward with this plan of care. Patient has tried and failed conservative therapy including oral medications, heat and ice, topicals, physical therapy and continued at home exercising and stretching for longer than 12 weeks. We will schedule the patient for a right intra-articular knee injection. Patient has been instructed to contact the clinic with any concerns before the next appointment. Dr. Paniagua has reviewed this note and agrees with this plan of care. This note was dictated using voice recognition software and make contain errors or omissions. [facility] Disclaimer: The information contained in this section may have been updated after the patient was seen, as this information can be updated by other users. Medical History Vocal cord edema Hoarseness Thyroid Nodule COPD (chronic obstructive pulmonary disease) Allergic rhinitis, unspecified Mild persistent asthma Pulmonary emphysema Nocturnal hypoxemia Stopped smoking with greater than 30 pack year history Dyspnea on exertion History of sleep apnea Surgical History Previous back surgery History of section History of colonoscopy Family History Other Cancer Diabetes Hypertension Social History Smoking Status: Former smoker tobacco type: cigarettes packs per day: 1 alcohol intake: never substance use type: denies use current occupational status: other Travel in the last 8 weeks: None household members: none housing: house number of children: 1
[2023-12-22 13:45] VITALS: BP 119/61; PULSE 83; RESP 16; O2SAT 95; BMI 30.9
== END 2023-12-22 23:59 | disposition home or self-care (01) ==
LOC: SC.PAIN 13:28
PROVIDERS: PCP Nurse Practitioner Family; Visit Provider Nurse Practitioner Family
DX: M51.16 Intervertebral disc disorders with radiculopathy, lumbar region (principal); M25.561 Pain in right knee; M25.562 Pain in left knee; G25.81 Restless legs syndrome; M25.572 Pain in left ankle and joints of left foot
CPT/HCPCS: 99212; G0463

== ENCOUNTER 2024-01-10 09:13 | Day surgery (SDC) | payer BC, SELFPAY ==
[2024-01-10 09:40] VITALS: BP 110/66; PULSE 71; RESP 16; O2SAT 93
[2024-01-10] MEDS: BUPIVACAINE 0.25% 10ML INJ 25 MG IJ (09:41)
[2024-01-10] MEDS: LIDOCAINE 1% 5ML PF VIAL 5 ML (09:41)
[2024-01-10] MEDS: methylPREDNISolone ACETATE 80MG/ML VIAL 80 MG (09:42)
--- NOTE | 2024-01-10 09:44 | P.PCN_ITS ---
Procedure Date: 01/10/24 Time: 09:40 Anesthesiologist:: Bubba Hair CRNA Complications:: None Pre-procedure Diagnosis:: DJD right knee. Chronic right knee pain. Post-procedure Diagnosis:: Same. Indications for Procedure:: Patient is a pleasant 63-year-old female comes our clinic today for intra- articular right knee injection. Patient reports right knee pain that is constant, dull, aching. Patient is very active. She walks 3 to 5 miles daily. Pain has become worse over the last few weeks. She had responded well to intra- articular injection of cortisone in the past. She rates her pain 7/10. Procedure Details:: Details of the procedure explained to the patient. The patient taken procedure and placed in sitting position. The area of the right knee was cleaned using chlorhexidine's cleansing solution. Using a 22-gauge inch and half needle the right knee joint was accessed with ease through the right lateral condyle fossa. After negative aspiration 3 cc of 1% lidocaine +3 cc of 0.25% Marcaine and 40 mg of Depo-Medrol was injected. Patient tolerated procedure without difficulty. There are no complications. Plan and Disposition:: Patient was discharged without incident.
[2024-01-10 09:51] VITALS: BP 111/78; BP 121/60; PULSE 50; PULSE 59; RESP 18; O2SAT 94; O2SAT 95; BMI 30.4
== END 2024-01-10 09:52 | disposition home or self-care (01) ==
PROVIDERS: PCP Nurse Practitioner Family; Visit Provider Nurse Anesthetist, Certified Registered
DX: M17.11 Unilateral primary osteoarthritis, right knee (principal); M25.561 Pain in right knee; G89.29 Other chronic pain
CPT/HCPCS: 20610; J1010

== ENCOUNTER 2024-01-25 10:34 | Outpatient (POV) | payer BC, SELFPAY ==
--- NOTE | 2024-01-25 10:37 | A.OFFVIS_ITS ---
[facility] Pain Management SOAP Note Subjective:: Patient is a pleasant 53-year-old female who presents today for follow-up of right knee intra-articular injection on 01/10/2024. Patient denies any new trauma or injury. She states her pain today as a 2 out of 10 however last night it was an 11 out of 10. Patient states that she did go fishing yesterday as well as hiking and feels like she paid for it at the end of the day. She does describe her pain still as a constant dull achy sensation that is worse with increased activity. She does state the pain interferes with her ability to perform activities of daily living. Patient does state that she applied a lidocaine patch to her knee last night and it did help some. Patient does state that she knows that she will need to have a total knee replacement on that side coming up however she has been trying to postpone it as long as possible.patient is managed with ropinirole 0.25 mg at bedtime. Her Nigel has been reviewed and is appropriate. Review of Systems: General: No recent weight changes, no fever, no sleep disturbances Respiratory: No cough, no shortness of air, no recurring pulmonary infections Cardiovascular/peripheral vascular: No chest pain, no palpitations, no edema, no shortness of breath Gastrointestinal: No new onset incontinence, normal bowel movements reported Genitourinary: No new onset incontinence Musculoskeletal: Right knee pain Psychiatric: [Normal mood/affect] Neurological: [Denies weakness in extremities], [denies balance issues] Objective:: Physical Exam: General: Alert and oriented x3, no acute distress, pleasant and cooperative Lungs: Respirations even and unlabored, symmetrical chest expansion Eyes: PERRL Musculoskeletal: Flexion and extension of right knee somewhat guarded secondary to pain, [antalgic gait noted] Neurological: Speech clear, no gross sensory deficit Assessment:: Degenerative disc disease of lumbar spine with lumbar radiculopathy symptoms, left leg pain, bilateral knee pain, restless leg syndrome Plan:: Patient is experiencing significant pain in her right knee with limited range of motion. I have discussed with the patient that she may benefit from a repeat right knee intra-articular injection. Risk and benefits were discussed with patient and she would like to proceed forward with this plan of care. Patient did have 85% relief with her intra-articular knee injections that did typically last on average several months. Patient has continued conservative treatment for longer than 6 weeks ending between injections with minimal improvement. I will order the patient lidocaine patches. Patient will be scheduled for repeat right intra-articular knee injection along the medial aspect. Patient has been instructed to contact the clinic with any concerns before the next appointment. Dr. Paniagua has reviewed this note and agrees with this plan of care. This note was dictated using voice recognition software and make contain errors or omissions. [facility] Disclaimer: The information contained in this section may have been updated after the patient was seen, as this information can be updated by other users. Medical History Vocal cord edema Hoarseness Thyroid Nodule COPD (chronic obstructive pulmonary disease) Allergic rhinitis, unspecified Mild persistent asthma Pulmonary emphysema Nocturnal hypoxemia Stopped smoking with greater than 30 pack year history Dyspnea on exertion History of sleep apnea Surgical History Previous back surgery History of section History of colonoscopy Family History Other Cancer Diabetes Hypertension Social History Smoking Status: Former smoker tobacco type: cigarettes packs per day: 1 alcohol intake: never substance use type: denies use current occupational status: retired Travel in the last 8 weeks: None household members: none housing: house number of children: 1
[2024-01-25 10:46] VITALS: BP 152/89; PULSE 66; RESP 16; O2SAT 96; BMI 30.9
== END 2024-01-25 23:59 | disposition home or self-care (01) ==
PROVIDERS: PCP Nurse Practitioner Family; Visit Provider Nurse Practitioner Family
DX: M51.16 Intervertebral disc disorders with radiculopathy, lumbar region (principal); M79.605 Pain in left leg; M25.561 Pain in right knee; M25.562 Pain in left knee; G25.81 Restless legs syndrome
CPT/HCPCS: 99212; G0463

== ENCOUNTER 2024-02-14 09:37 | Day surgery (SDC) | payer BC, SELFPAY ==
[2024-02-14 09:54] VITALS: BP 136/68; PULSE 56; RESP 16; O2SAT 95; BMI 30.1
[2024-02-14] MEDS: methylPREDNISolone ACETATE 80MG/ML VIAL 80 MG (10:03)
[2024-02-14] MEDS: LIDOCAINE 1% 5ML PF VIAL 5 ML (10:03)
[2024-02-14 10:04] VITALS: BP 135/67; PULSE 58; RESP 18; O2SAT 95
[2024-02-14] MEDS: BUPIVACAINE 0.25% 10ML INJ 25 MG IJ (10:04)
[2024-02-14 10:05] VITALS: BP 135/67; PULSE 71; RESP 18; O2SAT 95
--- NOTE | 2024-02-14 10:09 | EXP.PAIN.PRO ---
Procedure Date: 02/14/24 Time: 10:00 Anesthesiologist:: Bubba Hair CRNA Complications:: None Pre-procedure Diagnosis:: DJD right knee. Chronic right knee pain. Post-procedure Diagnosis:: Same. Indications for Procedure:: Patient is a very pleasant 63-year-old female who comes our clinic today for a right intra-articular knee injection. Patient describes right knee pain as constant, intermittent, dull, aching, sharp, stabbing at times. She rates her pain 8/10. Patient reports pain intensifies significantly in the evening. Patient stays very active. Patient reports having right intra-articular knee injections in the past with significant improvement. Procedure Details:: Procedure Details: Right intra-articular knee injection Informed consent was obtained risk and benefits of the procedure were explained to the patient. Patient was taken the procedure room right knee was prepped using ChloraPrep. A 25-gauge needle was used to inject 10 mL bupivacaine 0.25% and Depo-Medrol 40 mg into each knee. The patient tolerated the procedure well with no complications. Plan and Disposition:: Patient was discharged without incident.
[2024-02-14 10:12] VITALS: BP 137/77; PULSE 54; RESP 16; O2SAT 95
== END 2024-02-14 10:14 | disposition home or self-care (01) ==
PROVIDERS: PCP Nurse Practitioner Family; Visit Provider Nurse Anesthetist, Certified Registered
DX: M25.561 Pain in right knee (principal); M17.11 Unilateral primary osteoarthritis, right knee
CPT/HCPCS: 20610; J1010

== ENCOUNTER 2024-03-08 11:12 | Outpatient (POV) | payer BC, SELFPAY ==
[2024-03-08 11:25] VITALS: BP 140/88; PULSE 58; RESP 16; O2SAT 95; BMI 30.9
--- NOTE | 2024-03-08 11:30 | A.OFFVIS_ITS ---
[facility] Disclaimer: The information contained in this section may have been updated after the patient was seen, as this information can be updated by other users. Medical History Vocal cord edema Hoarseness Thyroid Nodule COPD (chronic obstructive pulmonary disease) Allergic rhinitis, unspecified Mild persistent asthma Pulmonary emphysema Nocturnal hypoxemia Stopped smoking with greater than 30 pack year history Dyspnea on exertion History of sleep apnea Surgical History Previous back surgery History of section History of colonoscopy Family History Other Cancer Diabetes Hypertension Social History Smoking Status: Former smoker tobacco type: cigarettes packs per day: 1 alcohol intake: never substance use type: denies use current occupational status: retired Travel in the last 8 weeks: None household members: none housing: house number of children: 1 PM Subjective & Objective Subjective Subjective:: Patient is a pleasant 63-year-old female who presents today for follow-up of right knee intra-articular injection on 02/14/2024. Today she rates her pain a 1 out of 10. Patient states she has had approximately 80 to 85% relief with this injection. She does state however she still will have occasional worsening pain in this joint along with her right hip and it does seem more prominent around bedtime. Patient denies any new trauma or injury. Patient is prescribed compounded cream and ropinirole 0.25 mg at bedtime. Patient denies any side effects from this medication however she does state that she has recently started neuro 5 cream and that feels like this works just as well if not better than the compounded cream. Her Nigel has been reviewed and is appropriate. Review of Systems: General: No recent weight changes, no fever, no sleep disturbances Respiratory: No cough, no shortness of air, no recurring pulmonary infections Cardiovascular/peripheral vascular: No chest pain, no palpitations, no edema, no shortness of breath Gastrointestinal: No new onset incontinence, normal bowel movements reported Genitourinary: No new onset incontinence Musculoskeletal: Right knee pain, right hip pain Psychiatric: [Normal mood/affect] Neurological: [Denies weakness in extremities], [denies balance issues] Pain at rest (0-10 scale): 1 Objective Objective:: Physical Exam: General: Alert and oriented x3, no acute distress, pleasant and cooperative Lungs: Respirations even and unlabored, symmetrical chest expansion Eyes: PERRL Musculoskeletal: Flexion and extension of right knee somewhat guarded secondary to pain, [antalgic gait noted] Neurological: Speech clear, no gross sensory deficit Has patient had previous pain injection?: Yes Percent improvement in pain since last injection: 80 to 85% Conservative treatment options previously tried: Home exercise plan Length of treatment: Longer than 6 weeks Meds Home Medications and Allergies Home Medications Medication Instructions Recorded Confirmed Type aspirin 81 mg tablet,delayed 81 mg PO DAILY . 07/02/22 03/08/24 History release (Adult Low Dose Aspirin) [id number] 1 cap PO DIRECTED SUPPLIMENT 05/12/23 03/08/24 History 36,000-114,000-180,000 unit capsule,delay rel (Creon) omeprazole 40 mg capsule,delayed 40 mg PO DAILY GERD 05/12/23 03/08/24 History release rosuvastatin 20 mg tablet 20 mg PO DAILY . #30 tabs 08/26/23 03/08/24 Rx hydrochlorothiazide 25 mg tablet 25 mg PO Q OTHER DAY #30 tabs 09/27/23 03/08/24 Rx metoprolol succinate 25 mg 25 mg PO QDAY 10/11/23 03/08/24 History tablet,extended release 24 hr ropinirole 0.25 mg tablet 0.25 mg PO HS #30 tabs 11/09/23 03/08/24 Rx albuterol sulfate 90 mcg/actuation 2 inh inhalation Q6H PRN shortness 11/28/23 03/08/24 Rx aerosol inhaler of breath or wheezing 90 days #8.5 grams fluticasone propionate 50 1 spray intranasal BID PRN allergy 11/28/23 03/08/24 Rx mcg/actuation nasal symptoms 90 days #16 grams spray,suspension (Flonase Allergy Relief) mupirocin 2 % topical ointment 1 applic topical TID PRN infection 12/06/23 03/08/24 Rx #15 grams meloxicam 15 mg tablet 15 mg PO DAILY #30 tabs 01/18/24 03/08/24 Rx lidocaine 5 % topical patch 1 patch topical DAILY #15 ea 01/25/24 03/08/24 Rx (Lidoderm) budesonide-formoterol HFA 160 2 puff inhalation BID 90 days 02/29/24 03/08/24 Rx mcg-4.5 mcg/actuation aerosol #10.2 grams inhaler New Prescriptions to Start Prescriptions: Allergies Allergy/AdvReac Type Severity Reaction Status Date / Time codeine [CODEINE] Allergy Unknown NA-NAUSEA/V Verified 02/14/24 09:55 OMITING Assessment and Plan *Assessment and plan (1) Lumbar radiculopathy: Status: Acute Category: Medical Code(s): M54.16 - Radiculopathy, lumbar region (2) Degenerative disc disease, lumbar: Status: Acute Category: Medical Code(s): M51.36 - Other intervertebral disc degeneration, lumbar region (3) Right knee pain: Status: Acute Qualifiers: Chronicity: chronic Qualified Code(s): M25.561 - Pain in right knee; G89.29 - Other chronic pain Category: Medical Code(s): M25.561 - Pain in right knee Plan Patient has had significant improvement following her right knee intra-articular injection and does not require any additional injection therapy at this time. I have discussed with patient that we will send in a 2-week supply of tramadol 50 mg at bedtime to see if this helps with her overall knee and hip pain that remains. Patient will return to clinic in 2 weeks for reevaluation of symptoms and plan of care. Risks and benefits of the medication have been explained in detail to the patient. The patient does understand the risk of dependence on the medication when given over a prolonged period. Patient has been advised of risks of oversedation with the prescribed medication. Narcan has been offered to the paitent in the event of ov ersedation. Patient has been advised that a family member should also be educated regarding administration of Narcan. The patient has been advised to consult with his/her primary care provider and pharmacist regarding drug-drug interaction of medications currently prescribed. Patient has been prescribed a controlled substance after being counseled on the medication, medication safety, and possible side effects. Opioid contract was reviewed and signed by the patient, and that they have agreed to all of the terms set forth by our compliance program. Patient has been instructed to contact the clinic with any concerns before the next appointment. Dr. Paniagua has reviewed this note and agrees with this plan of care. This note was dictated using voice recognition software and make contain errors or omissions.
== END 2024-03-08 23:59 | disposition home or self-care (01) ==
PROVIDERS: PCP Nurse Practitioner Family; Visit Provider Nurse Practitioner Family
DX: M51.16 Intervertebral disc disorders with radiculopathy, lumbar region (principal); M25.561 Pain in right knee; G89.29 Other chronic pain; Z87.891 Personal history of nicotine dependence; Z79.899 Other long term (current) drug therapy
CPT/HCPCS: 99212; G0463

== ENCOUNTER 2024-03-22 08:19 | Outpatient (POV) | payer BC, SELFPAY ==
[2024-03-22 08:31] VITALS: BP 154/79; PULSE 68; RESP 18; O2SAT 95; BMI 30.1
--- NOTE | 2024-03-22 09:06 | EXP.PAIN.SOA ---
[facility] Disclaimer: The information contained in this section may have been updated after the patient was seen, as this information can be updated by other users. Medical History Vocal cord edema Hoarseness Thyroid Nodule COPD (chronic obstructive pulmonary disease) Allergic rhinitis, unspecified Mild persistent asthma Pulmonary emphysema Nocturnal hypoxemia Stopped smoking with greater than 30 pack year history Dyspnea on exertion History of sleep apnea Surgical History Previous back surgery History of section History of colonoscopy Family History Other Cancer Diabetes Hypertension Social History Smoking Status: Former smoker tobacco type: cigarettes packs per day: 1 alcohol intake: never substance use type: denies use current occupational status: retired Travel in the last 8 weeks: None household members: none housing: house number of children: 1 PM Subjective & Objective Subjective Subjective:: Patient is a pleasant 63-year-old female who presents today for medication refill and follow-up. Today she rates her pain a 1 out of 10. Patient denies any new trauma or injury. She does state that the addition of the tramadol at bedtime did significantly help her overall pain at night. She states she is no longer waking up in the middle the night with the severe pain. Patient denies any side effects to this. Patient is currently managed with propranolol 0.25 mg at bedtime and tramadol 50 mg at bedtime. Patient has been using nurvive cream with some improvement. Her Nigel has been reviewed and is appropriate. Review of Systems: General: No recent weight changes, no fever, no sleep disturbances Respiratory: No cough, no shortness of air, no recurring pulmonary infections Cardiovascular/peripheral vascular: No chest pain, no palpitations, no edema, no shortness of breath Gastrointestinal: No new onset incontinence, normal bowel movements reported Genitourinary: No new onset incontinence Musculoskeletal: Low back pain, right knee pain Psychiatric: [Normal mood/affect] Neurological: [Denies weakness in extremities], [denies balance issues] Pain at rest (0-10 scale): 1 Objective Objective:: Physical Exam: General: Alert and oriented x3, no acute distress, pleasant and cooperative Lungs: Respirations even and unlabored, symmetrical chest expansion Eyes: PERRL Musculoskeletal: Flexion and extension of lumbar [spine] somewhat guarded secondary to pain, [antalgic gait noted] Neurological: Speech clear, no gross sensory deficit Has patient had previous pain injection?: No Conservative treatment options previously tried: Home exercise plan Length of treatment: Longer than 6 weeks Meds Home Medications and Allergies Home Medications ?Medication ?Instructions ?Recorded ?Confirmed ?Type aspirin 81 mg tablet,delayed 81 mg PO DAILY . 07/02/22 03/22/24 History release (Adult Low Dose Aspirin) [id number] 1 cap PO DIRECTED SUPPLIMENT 05/12/23 03/22/24 History 36,000-114,000-180,000 unit capsule,delay rel (Creon) omeprazole 40 mg capsule,delayed 40 mg PO DAILY GERD 05/12/23 03/22/24 History release rosuvastatin 20 mg tablet 20 mg PO DAILY . #30 tabs 08/26/23 03/22/24 Rx hydrochlorothiazide 25 mg tablet 25 mg PO Q OTHER DAY #30 tabs 09/27/23 03/22/24 Rx metoprolol succinate 25 mg 25 mg PO QDAY 10/11/23 03/22/24 History tablet,extended release 24 hr ropinirole 0.25 mg tablet 0.25 mg PO HS #30 tabs 11/09/23 03/22/24 Rx albuterol sulfate 90 mcg/actuation 2 inh inhalation Q6H PRN shortness 11/28/23 03/22/24 Rx aerosol inhaler of breath or wheezing 90 days #8.5 grams fluticasone propionate 50 1 spray intranasal BID PRN allergy 11/28/23 03/22/24 Rx mcg/actuation nasal symptoms 90 days #16 grams spray,suspension (Flonase Allergy Relief) mupirocin 2 % topical ointment 1 applic topical TID PRN infection 12/06/23 03/22/24 Rx #15 grams meloxicam 15 mg tablet 15 mg PO DAILY #30 tabs 01/18/24 03/22/24 Rx lidocaine 5 % topical patch 1 patch topical DAILY #15 ea 01/25/24 03/22/24 Rx (Lidoderm) budesonide-formoterol HFA 160 2 puff inhalation BID 90 days 02/29/24 03/22/24 Rx mcg-4.5 mcg/actuation aerosol #10.2 grams inhaler tramadol 50 mg tablet 50 mg PO HS #14 tabs 03/08/24 03/22/24 Rx New Prescriptions to Start Prescriptions: Allergies Allergy/AdvReac Type Severity Reaction Status Date / Time codeine [CODEINE] Allergy Unknown NA-NAUSEA/V Verified 02/14/24 09:55 OMITING Assessment and Plan *Assessment and plan (1) Lumbar radiculopathy: Status: Acute Category: Medical Code(s): M54.16 - Radiculopathy, lumbar region (2) Degenerative disc disease, lumbar: Status: Acute Category: Medical Code(s): M51.36 - Other intervertebral disc degeneration, lumbar region (3) Right knee pain: Status: Acute Qualifiers: Chronicity: chronic Qualified Code(s): M25.561 - Pain in right knee; G89.29 - Other chronic pain Category: Medical Code(s): M25.561 - Pain in right knee Plan I will refill the patient's tramadol and ropinirole provide a 3 month supply of this medication. Patient will return to clinic in 3 months for reevaluation of symptoms and plan of care. Patient has been instructed to contact the clinic with any concerns before the next appointment. Dr. Paniagua has reviewed this note and agrees with this plan of care. This note was dictated using voice recognition software and make contain errors or omissions. All injections are used with Lidocaine or Bupivacaine and Depo Medrol.
== END 2024-03-22 23:59 | disposition home or self-care (01) ==
PROVIDERS: PCP Nurse Practitioner Family; Visit Provider Nurse Practitioner Family
DX: M51.16 Intervertebral disc disorders with radiculopathy, lumbar region (principal); M25.561 Pain in right knee; G89.29 Other chronic pain; Z87.891 Personal history of nicotine dependence; Z79.899 Other long term (current) drug therapy
CPT/HCPCS: 99212; G0463

== ENCOUNTER 2024-05-08 09:56 | Outpatient (CLI) | payer BC, SELFPAY ==
[2024-05-08 10:37] LABS: Basophils # 0.1 K/mm3 (0-0.2); Basophils % 0.8 % (0.1-2.0); Eosinophils # 0.2 K/mm3 (0.0-0.4); Eosinophils % 2.8 % (0.1-12.0); Hematocrit 43.8 % (37.0-47.0); Hemoglobin 14.5 g/dL (12.2-16.2); Lymphocytes # 1.6 K/mm3 (0.7-4.5); Lymphocytes % 20.7 % (10-50); Mean Corpuscular HGB Conc 33.2 g/dL (31.8-35.4); Mean Corpuscular Hemoglobin 32.4 pg (27.0-31.2); Mean Corpuscular Volume 97.7 fl (81-99); Mean Platelet Volume 8.7 fl (7.4-10.4); Monocytes # 0.4 K/mm3 (0.1-1.0); Monocytes % 5.3 % (1.7-9.3); Neutrophils # 5.4 K/mm3 (1.8-7.8); Neutrophils % 70.4 % (37.0-80.0); Platelet Count 249 K/mm3 (142-424); Red Blood Count 4.48 M/mm3 (4.20-5.40); Red Cell Distribution Width 13.5 % (11.5-17.5); White Blood Count 7.6 K/mm3 (4.8-10.8)
[2024-05-08 10:56] LABS: Alanine Aminotransferase 32 U/L (12-78); Albumin Level 4.1 g/dl (3.5-5.0); Alkaline Phosphatase 67 U/L (38-126); Anion Gap 8.3 mEq/L (5-15); Aspartate Amino Transferase 33 U/L (14-36); Bilirubin,Direct 0.2 mg/dl (0.0-0.4); Bilirubin,Indirect 0.5 mg/dL (0.0-0.9); Bilirubin,Total 0.7 mg/dl (0.2-1.3); Bilirubin,Unconjugated 0.6 mg/dL (0.0-1.1); Blood Urea Nitrogen 14 mg/dl (7-17); Calcium 9.6 mg/dl (8.4-10.2); Carbon Dioxide 25 mmol/L (22.0-30.0); Chloride 109 mmol/L (98-107); Chol/HDL Ratio 2.2 (1-3.5); Cholesterol 136 mg/dl (140-200); Estimated Glomerular Filt Rate 85 ml/min (>60); GFR (African American) 103 ML/MIN (>60); Glucose 100 mg/dl (74-100); HDL Cholesterol 62 mg/dl (40-60); Magnesium 1.9 mg/dl (1.6-2.3); Potassium 4.3 mmoL/L (3.5-5.1); Sodium 138 mmol/L (136-145); Total Protein,Serum 6.2 g/dl (6.3-8.2); Triglycerides 109 mg/dl (30-150); VLDL Cholesterol 22 mg/dL (0-40)
[2024-05-08 11:07] LABS: Direct LDL Cholesterol 52.41 mg/dL (100-129)
[2024-05-08 11:11] LABS: Free T4 (Free Thyroxine) 1.02 ng/dl (0.78-2.19)
[2024-05-08 11:26] LABS: Thyroid Stimulating Hormone 0.66 uIU/mL (0.465-4.68)
== END 2024-05-08 23:59 | disposition home or self-care (01) ==
LOC: LAB 10:00
PROVIDERS: PCP Nurse Practitioner Family; Visit Provider Physician Assistant
DX: R00.1 Bradycardia, unspecified (principal); E04.1 Nontoxic single thyroid nodule; I27.20 Pulmonary hypertension, unspecified; I25.118 Atherosclerotic heart disease of native coronary artery with other forms of angina pectoris; I25.10 Atherosclerotic heart disease of native coronary artery without angina pectoris; R06.00 Dyspnea, unspecified; R06.09 Other forms of dyspnea; R63.5 Abnormal weight gain; Z68.31 Body mass index [BMI] 31.0-31.9, adult
CPT/HCPCS: 36415; 80048; 80061; 80076; 83735; 84439; 84443; 85025; 93270

== ENCOUNTER 2024-06-25 08:21 | Outpatient (POV) | payer BC, SELFPAY ==
[2024-06-25 08:47] VITALS: BP 133/69; PULSE 53; RESP 18; O2SAT 95; BMI 30.1
--- NOTE | 2024-06-25 09:03 | EXP.PAIN.SOA ---
[facility] Disclaimer: The information contained in this section may have been updated after the patient was seen, as this information can be updated by other users. Medical History GERD (gastroesophageal reflux disease) Vocal cord edema Hoarseness Thyroid Nodule COPD (chronic obstructive pulmonary disease) Allergic rhinitis, unspecified Mild persistent asthma Pulmonary emphysema Nocturnal hypoxemia Stopped smoking with greater than 30 pack year history Dyspnea on exertion History of sleep apnea Surgical History History of eye surgery eyelid repair; bilateral Previous back surgery History of section History of colonoscopy Family History Other Cancer Diabetes Hypertension Social History Smoking Status: Former smoker tobacco type: cigarettes packs per day: 1 alcohol intake: never substance use type: denies use current occupational status: retired Travel in the last 8 weeks: None household members: none housing: house number of children: 1 PM Subjective & Objective Subjective Subjective:: Patient is a pleasant 63-year-old female who presents today for medication refill and follow-up. Today she does rate her pain a 1 out of 10 however does state over the last 3 weeks she has been having increased right calf pain. Patient states the pain will go to an 8 or 9 out of 10 and just feels very sharp. Patient does question whether or not if it is something to do with her circulation and that she did worry about a blood clot because her brother has a family history. Patient states the pain comes and goes but when it does come it is very severe and interferes with activities of daily living such as cooking and cleaning. Patient does state that she did end up going to see Dr. Friedman a while ago regarding her left foot and ankle and said that she was very nice however did not really give me specific findings or potential interventions. Patient does states she has not been back to their office. Patient is currently managed with ropinirole 0.25 mg at bedtime and tramadol 50 mg at bedtime. She denies any side effects from this medication. Patient does also use #5 topical cream. Her Nigel has been reviewed and is appropriate. Review of Systems: General: No recent weight changes, no fever, no sleep disturbances Respiratory: No cough, no shortness of air, no recurring pulmonary infections Cardiovascular/peripheral vascular: No chest pain, no palpitations, no edema, no shortness of breath Gastrointestinal: No new onset incontinence, normal bowel movements reported Genitourinary: No new onset incontinence Musculoskeletal: Right calf pain Psychiatric: [Normal mood/affect] Neurological: [Denies weakness in extremities], [denies balance issues] Pain at rest (0-10 scale): 8 Objective Objective:: Physical Exam: General: Alert and oriented x3, no acute distress, pleasant and cooperative Lungs: Respirations even and unlabored, symmetrical chest expansion Eyes: PERRL Musculoskeletal: Flexion and extension of right knee somewhat guarded secondary to pain, point tenderness with palpation around right upper calf, no swelling, warmth or erythema noted Neurological: Speech clear, no gross sensory deficit Has patient had previous pain injection?: No Conservative treatment options previously tried: Home exercise plan Length of treatment: Longer than 12 weeks Meds Home Medications and Allergies Home Medications ?Medication ?Instructions ?Recorded ?Confirmed ?Type aspirin 81 mg tablet,delayed 81 mg PO DAILY . 07/02/22 06/25/24 History release (Adult Low Dose Aspirin) [id number] 1 cap PO DIRECTED SUPPLIMENT 05/12/23 06/25/24 History 36,000-114,000-180,000 unit capsule,delay rel (Creon) omeprazole 40 mg capsule,delayed 40 mg PO DAILY GERD 05/12/23 06/25/24 History release rosuvastatin 20 mg tablet 20 mg PO DAILY . #30 tabs 08/26/23 06/25/24 Rx albuterol sulfate 90 mcg/actuation 2 inh inhalation Q6H PRN shortness 11/28/23 06/25/24 Rx aerosol inhaler of breath or wheezing 90 days #8.5 grams fluticasone propionate 50 1 spray intranasal BID PRN allergy 11/28/23 06/25/24 Rx mcg/actuation nasal symptoms 90 days #16 grams spray,suspension (Flonase Allergy Relief) mupirocin 2 % topical ointment 1 applic topical TID PRN infection 12/06/23 06/25/24 Rx #15 grams lidocaine 5 % topical patch 1 patch topical DAILY #15 ea 01/25/24 06/25/24 Rx (Lidoderm) budesonide-formoterol HFA 160 2 puff inhalation BID 90 days 02/29/24 06/25/24 Rx mcg-4.5 mcg/actuation aerosol #10.2 grams inhaler tramadol 50 mg tablet 50 mg PO HS #30 tabs 03/22/24 06/25/24 Rx meloxicam 15 mg tablet 15 mg PO DAILY #30 tabs 04/24/24 06/25/24 Rx New Prescriptions to Start Prescriptions: Allergies Allergy/AdvReac Type Severity Reaction Status Date / Time No Known Allergies Allergy Verified 06/12/24 09:17 Assessment and Plan *Assessment and plan (1) Right calf pain: Status: Acute Category: Medical Code(s): M79.661 - Pain in right lower leg Plan Patient is experiencing worsening pain in and around her upper right calf that is interfering with her activities of daily living. I did discuss with the patient due to the severity when this pain occurs that I would like to order ultrasound for evaluation. Patient agrees with this plan of care. I did also discuss with the patient regarding her refills and she states that the ropinirole she has not necessarily been needing to do as frequently and only needs her tramadol refilled. I will supply a 3-month prescription. Patient will return to clinic in 2 weeks following her ultrasound. Risks and benefits of the medication have been explained in detail to the patient. The patient does understand the risk of dependence on the medication when given over a prolonged period. Patient has been advised of risks of oversedation with the prescribed medication. Narcan has been offered to the paitent in the event of oversedation. Patient has been advised that a family member should also be educated regarding administration of Narcan. The patient has been advised to consult with his/her primary care provider and pharmacist regarding drug-drug interaction of medications currently prescribed. Patient has been prescribed a controlled substance after being counseled on the medication, medication safety, and possible side effects. Opioid contract was reviewed and signed by the patient, and that they have agreed to all of the terms set forth by our compliance program. Patient has been instructed to contact the clinic with any concerns before the next appointment. Dr. Panaigua has reviewed this note and agrees with this plan of care. This note was dictated using voice recognition software and make contain errors or omissions.
== END 2024-06-25 23:59 | disposition home or self-care (01) ==
PROVIDERS: PCP Nurse Practitioner Family; Visit Provider Nurse Practitioner Family
DX: M79.661 Pain in right lower leg (principal); Z87.891 Personal history of nicotine dependence; Z73.89 Other problems related to life management difficulty
CPT/HCPCS: 99212; G0463

== ENCOUNTER 2024-07-13 14:53 | Outpatient (CLI) | payer BC, SELFPAY ==
--- NOTE | 2024-07-13 14:56 | US_ITS ---
FINAL REPORT CLINICAL HISTORY: RT LOWER CALF PAIN COMPARISON: None FINDINGS: Limited sonographic images were obtained of the soft tissues to the right lower leg posteriorly at the area of interest. At the posterior knee is a 2 cm oval hypoechoic abnormality with internal echoes but no internal blood flow. This likely represents a complex popliteal cyst. The remaining soft tissues are unremarkable. IMPRESSION: Complex popliteal cyst at the area of interest. Reviewed, Interpreted and Dictated by Ruby Andrews MD Transcribed by Kenia Watson Authenticated and [facility]
== END 2024-07-13 23:59 | disposition home or self-care (01) ==
LOC: RAD 14:54
PROVIDERS: PCP Nurse Practitioner Family; Visit Provider Nurse Practitioner Family
DX: M79.661 Pain in right lower leg (principal)
CPT/HCPCS: 76882

== ENCOUNTER 2024-07-26 10:27 | Outpatient (POV) | payer BC, SELFPAY ==
--- NOTE | 2024-07-26 10:38 | EXP.PAIN.SOA ---
[facility] Disclaimer: The information contained in this section may have been updated after the patient was seen, as this information can be updated by other users. Medical History GERD (gastroesophageal reflux disease) Vocal cord edema Hoarseness Thyroid Nodule COPD (chronic obstructive pulmonary disease) Allergic rhinitis, unspecified Mild persistent asthma Pulmonary emphysema Nocturnal hypoxemia Stopped smoking with greater than 30 pack year history Dyspnea on exertion History of sleep apnea Surgical History History of eye surgery eyelid repair; bilateral Previous back surgery History of section History of colonoscopy Family History Other Cancer Diabetes Hypertension Social History Smoking Status: Former smoker tobacco type: cigarettes packs per day: 1 alcohol intake: never substance use type: denies use current occupational status: retired Travel in the last 8 weeks: None household members: none housing: house number of children: 1 PM Subjective & Objective Subjective Subjective:: Patient is a pleasant 63-year-old female who presents today for 2-week follow-up of imaging of her upper right calf. Today she rates her pain a 2 out of 10. Patient denies any new trauma or injury. She does state that the right upper calf/knee area will still occasionally cause worsening pain and that it does vary day-to-day. Patient does also state that she continues to have issues with her left foot where it constantly is numb in the toes and at the site of her leg. Patient does have a lot of concern that something more is going on with this extremity and that she is worried that she is going to end up losing her foot due to the worsening symptoms. Patient does state that all of this did seem to stem following from her back surgery that she had years ago. She does also states she continues to have numbness and tingling into her upper extremities and in her hands. Patient is currently managed with tramadol 50 mg at bedtime and ropinirole 0.25 mg at bedtime. Patient does not require any refills as she just got a 3-month supply of her tramadol. Patient states that she has not needed the ropinirole on a regular basis. Her Nigel has been reviewed and is appropriate. Review of Systems: General: No recent weight changes, no fever, no sleep disturbances Respiratory: No cough, no shortness of air, no recurring pulmonary infections Cardiovascular/peripheral vascular: No chest pain, no palpitations, no edema, no shortness of breath Gastrointestinal: No new onset incontinence, normal bowel movements reported Genitourinary: No new onset incontinence Musculoskeletal: Left foot pain Psychiatric: [Normal mood/affect] Neurological: [Denies weakness in extremities], [denies balance issues] Pain at rest (0-10 scale): 2 Objective Objective:: Physical Exam: General: Alert and oriented x3, no acute distress, pleasant and cooperative Lungs: Respirations even and unlabored, symmetrical chest expansion Eyes: PERRL Musculoskeletal: Flexion and extension of lumbar [spine] somewhat guarded secondary to pain, [antalgic gait noted] Neurological: Speech clear, no gross sensory deficit Has patient had previous pain injection?: No Conservative treatment options previously tried: Home exercise plan Length of treatment: Longer than 12 weeks Meds Home Medications and Allergies Home Medications ?Medication ?Instructions ?Recorded ?Confirmed ?Type aspirin 81 mg tablet,delayed 81 mg PO DAILY . 07/02/22 06/25/24 History release (Adult Low Dose Aspirin) omeprazole 40 mg capsule,delayed 40 mg PO DAILY GERD 05/12/23 06/25/24 History release rosuvastatin 20 mg tablet 20 mg PO DAILY . #30 tabs 08/26/23 06/25/24 Rx albuterol sulfate 90 mcg/actuation 2 inh inhalation Q6H PRN shortness 11/28/23 06/25/24 Rx aerosol inhaler of breath or wheezing 90 days #8.5 grams fluticasone propionate 50 1 spray intranasal BID PRN allergy 11/28/23 06/25/24 Rx mcg/actuation nasal symptoms 90 days #16 grams spray,suspension (Flonase Allergy Relief) mupirocin 2 % topical ointment 1 applic topical TID PRN infection 12/06/23 06/25/24 Rx #15 grams lidocaine 5 % topical patch 1 patch topical DAILY #15 ea 01/25/24 06/25/24 Rx (Lidoderm) budesonide-formoterol HFA 160 2 puff inhalation BID 90 days 02/29/24 06/25/24 Rx mcg-4.5 mcg/actuation aerosol #10.2 grams inhaler [id number]-[id number]-puadsyq 1 cap PO TID SUPPLIMENT #90 caps 06/25/24 Rx 36,000-114,000-180,000 unit capsule,delay rel (Creon) tramadol 50 mg tablet 50 mg PO HS #30 tabs 06/25/24 Rx meloxicam 15 mg tablet See Rx Instructions .Route 07/23/24 Rx .COMPLEX #30 tabs New Prescriptions to Start Prescriptions: Allergies Allergy/AdvReac Type Severity Reaction Status Date / Time No Known Allergies Allergy Verified 06/12/24 09:17 Assessment and Plan *Assessment and plan (1) Synovial cyst of popliteal space [Yadav], right knee: Status: Acute Category: Medical Code(s): M71.21 - Synovial cyst of popliteal space [Yadav], right knee (2) Lumbar radiculopathy: Status: Acute Category: Medical Code(s): M54.16 - Radiculopathy, lumbar region (3) Left foot pain: Status: Acute Category: Medical Code(s): M79.672 - Pain in left foot Plan I did review over with the patient regarding her ultrasound results and that it was a right popliteal/Yadav's cyst. Patient does state that she did have this in the past and that it was much much bigger however she thought it had completely resolved. I did review over with the patient and her options regarding conservative treatment on the Yadav's cyst. I did discuss with the patient due to her continued symptoms in her left leg and foot that I we will send a referral to Dr. Coet for EMG testing to rule out neuropathy versus nerve impingement. I will also send in a 1 month supply of pregabalin 50 mg at bedtime to see if this helps additionally with the numbness and tingling into her upper extremities as well as her left lower extremity. Patient agrees with this plan of care. Patient will return to clinic in 1 month for reevaluation of symptoms and plan of care. Patient has been instructed to contact the clinic with any concerns before the next appointment. Dr. Paniagua has reviewed this note and agrees with this plan of care. This note was dictated using voice recognition software and make contain errors or omissions. All injections are used with Lidocaine or Bupivacaine and Depo Medrol.
[2024-07-26 11:33] VITALS: BP 162/97; PULSE 59; RESP 16; O2SAT 92; BMI 30.1
== END 2024-07-26 23:59 | disposition home or self-care (01) ==
PROVIDERS: PCP Nurse Practitioner Family; Visit Provider Nurse Practitioner Family
DX: M71.21 Synovial cyst of popliteal space [Baker], right knee (principal); M54.16 Radiculopathy, lumbar region; M79.672 Pain in left foot; Z87.891 Personal history of nicotine dependence
CPT/HCPCS: 99212; G0463

== ENCOUNTER 2024-08-24 13:48 | Outpatient (POV) | payer BC, SELFPAY ==
[2024-08-24 15:17] VITALS: BP 138/77; PULSE 79; RESP 16; O2SAT 93; BMI 30.1
--- NOTE | 2024-08-24 15:27 | EXP.PAIN.SOA ---
[facility] Disclaimer: The information contained in this section may have been updated after the patient was seen, as this information can be updated by other users. Medical History GERD (gastroesophageal reflux disease) Vocal cord edema Hoarseness Thyroid Nodule COPD (chronic obstructive pulmonary disease) Allergic rhinitis, unspecified Mild persistent asthma Pulmonary emphysema Nocturnal hypoxemia Stopped smoking with greater than 30 pack year history Dyspnea on exertion History of sleep apnea Surgical History History of eye surgery eyelid repair; bilateral Previous back surgery History of section History of colonoscopy Family History Other Cancer Diabetes Hypertension Social History Smoking Status: Former smoker tobacco type: cigarettes packs per day: 1 alcohol intake: never substance use type: denies use current occupational status: other Travel in the last 8 weeks: None household members: none housing: house number of children: 1 PM Subjective & Objective Subjective Subjective:: Patient is a pleasant 64-year-old female who presents today for a 1 month follow-up. Today she rates her pain a 2 out of 10. She denies any new trauma or injury. From her last visit she does state that she did end up having the EMG test with Dr. Cote however she has not been told any updated results. Patient states she does not have any follow-up appointments with her. Patient was also prescribed pregabalin 50 mg at bedtime at her last visit she does state that that did really seem to help her left foot pain however she really wants to know if there is something more extensive going on. Patient is currently managed with tramadol 50 mg at bedtime, meloxicam 15 mg daily along with the pregabalin from our office. She denies any side effects. Her Nigel has been reviewed and is appropriate. Review of Systems: General: No recent weight changes, no fever, no sleep disturbances Respiratory: No cough, no shortness of air, no recurring pulmonary infections Cardiovascular/peripheral vascular: No chest pain, no palpitations, no edema, no shortness of breath Gastrointestinal: No new onset incontinence, normal bowel movements reported Genitourinary: No new onset incontinence Musculoskeletal: Left foot pain Psychiatric: [Normal mood/affect] Neurological: [Denies weakness in extremities], [denies balance issues] Pain at rest (0-10 scale): 2 Objective Objective:: Physical Exam: General: Alert and oriented x3, no acute distress, pleasant and cooperative Lungs: Respirations even and unlabored, symmetrical chest expansion Eyes: PERRL Musculoskeletal: Flexion and extension of left ankle somewhat guarded secondary to pain, [antalgic gait noted] Neurological: Speech clear, no gross sensory deficit Has patient had previous pain injection?: No Conservative treatment options previously tried: Home exercise plan Length of treatment: Longer than 12 weeks Meds Home Medications and Allergies Home Medications ?Medication ?Instructions ?Recorded ?Confirmed ?Type aspirin 81 mg tablet,delayed 81 mg PO DAILY . 07/02/22 08/24/24 History release (Adult Low Dose Aspirin) omeprazole 40 mg capsule,delayed 40 mg PO DAILY GERD 05/12/23 08/24/24 History release albuterol sulfate 90 mcg/actuation 2 inh inhalation Q6H PRN shortness 11/28/23 08/24/24 Rx aerosol inhaler of breath or wheezing 90 days #8.5 grams fluticasone propionate 50 1 spray intranasal BID PRN allergy 11/28/23 08/24/24 Rx mcg/actuation nasal symptoms 90 days #16 grams spray,suspension (Flonase Allergy Relief) mupirocin 2 % topical ointment 1 applic topical TID PRN infection 12/06/23 08/24/24 Rx #15 grams lidocaine 5 % topical patch 1 patch topical DAILY #15 ea 01/25/24 08/24/24 Rx (Lidoderm) budesonide-formoterol HFA 160 2 puff inhalation BID 90 days 02/29/24 08/24/24 Rx mcg-4.5 mcg/actuation aerosol #10.2 grams inhaler kqmnoe-olyuplaj-tifthra 1 cap PO TID SUPPLIMENT #90 caps 06/25/24 08/24/24 Rx 36,000-114,000-180,000 unit capsule,delay rel (Creon) tramadol 50 mg tablet 50 mg PO HS #30 tabs 06/25/24 08/24/24 Rx pregabalin 50 mg capsule 50 mg PO HS #30 caps 07/26/24 08/24/24 Rx meloxicam 15 mg tablet See Rx Instructions .Route 08/17/24 08/24/24 Rx .COMPLEX #30 tabs rosuvastatin 20 mg tablet 20 mg PO DAILY . #30 tabs 08/17/24 08/24/24 Rx New Prescriptions to Start Prescriptions: Allergies Allergy/AdvReac Type Severity Reaction Status Date / Time No Known Allergies Allergy Verified 06/12/24 09:17 Assessment and Plan *Assessment and plan (1) Left foot pain: Status: Acute Category: Medical Code(s): M79.672 - Pain in left foot Plan Patient was counseled that I do not see the EMG in the system yet with the results. We will call over and get a copy of the report. I will also send refills on her pregabalin and make sure she has appropriate refills for her meloxicam and tramadol. Patient will return to clinic in 1 month to follow-up on the EMG findings. Patient agrees with this plan of care. Patient has been instructed to contact the clinic with any concerns before the next appointment. Dr. Paniagua has reviewed this note and agrees with this plan of care. This note was dictated using voice recognition software and make contain errors or omissions. All injections are used with Lidocaine, Bupivacaine and Depo Medrol. Occasionally urine drug screen is needed to verify patient's compliance with our office pain contract. This is ordered based off specific treatments related to chronic pain with the potential to abuse certain medications.
== END 2024-08-24 23:59 | disposition home or self-care (01) ==
PROVIDERS: PCP Nurse Practitioner Family; Visit Provider Nurse Practitioner Family
DX: M79.672 Pain in left foot (principal); Z87.891 Personal history of nicotine dependence
CPT/HCPCS: 99212; G0463

== ENCOUNTER 2024-09-24 09:14 | Outpatient (POV) | payer BC, SELFPAY ==
--- NOTE | 2024-09-24 09:42 | EXP.PAIN.SOA ---
[facility] Disclaimer: The information contained in this section may have been updated after the patient was seen, as this information can be updated by other users. Medical History GERD (gastroesophageal reflux disease) Vocal cord edema Hoarseness Thyroid Nodule COPD (chronic obstructive pulmonary disease) Allergic rhinitis, unspecified Mild persistent asthma Pulmonary emphysema Nocturnal hypoxemia Stopped smoking with greater than 30 pack year history Dyspnea on exertion History of sleep apnea Surgical History History of eye surgery eyelid repair; bilateral Previous back surgery History of section History of colonoscopy Family History Other Cancer Diabetes Hypertension Social History Smoking Status: Former smoker tobacco type: cigarettes packs per day: 1 alcohol intake: never substance use type: denies use current occupational status: other Travel in the last 8 weeks: None household members: none housing: house number of children: 1 PM Subjective & Objective Subjective Subjective:: Patient is a pleasant 64-year-old female who presents today for follow-up on EMG findings. Today she rates her pain a 1 out of 10. She denies any new trauma or injury. Patient states she still has the chronic pain that affects her left foot with numbness however she has been doing well overall. Patient is currently managed with tramadol 50 mg at bedtime, meloxicam 15 mg daily and pregabalin 50 mg at bedtime from our office. She denies any side effects. Her Nigel has been reviewed and is appropriate. Review of Systems: General: No recent weight changes, no fever, no sleep disturbances Respiratory: No cough, no shortness of air, no recurring pulmonary infections Cardiovascular/peripheral vascular: No chest pain, no palpitations, no edema, no shortness of breath Gastrointestinal: No new onset incontinence, normal bowel movements reported Genitourinary: No new onset incontinence Musculoskeletal: Left foot pain Psychiatric: [Normal mood/affect] Neurological: [Denies weakness in extremities], [denies balance issues] Pain at rest (0-10 scale): 1 Objective Objective:: Physical Exam: General: Alert and oriented x3, no acute distress, pleasant and cooperative Lungs: Respirations even and unlabored, symmetrical chest expansion Eyes: PERRL Musculoskeletal: Flexion and extension of lumbar [spine] somewhat guarded secondary to pain Neurological: Speech clear, no gross sensory deficit Has patient had previous pain injection?: No Conservative treatment options previously tried: Home exercise plan Length of treatment: Longer than 12 weeks Meds Home Medications and Allergies Home Medications ?Medication ?Instructions ?Recorded ?Confirmed ?Type aspirin 81 mg tablet,delayed 81 mg PO DAILY . 07/02/22 08/24/24 History release (Adult Low Dose Aspirin) omeprazole 40 mg capsule,delayed 40 mg PO DAILY GERD 05/12/23 08/24/24 History release albuterol sulfate 90 mcg/actuation 2 inh inhalation Q6H PRN shortness 11/28/23 08/24/24 Rx aerosol inhaler of breath or wheezing 90 days #8.5 grams fluticasone propionate 50 1 spray intranasal BID PRN allergy 11/28/23 08/24/24 Rx mcg/actuation nasal symptoms 90 days #16 grams spray,suspension (Flonase Allergy Relief) mupirocin 2 % topical ointment 1 applic topical TID PRN infection 12/06/23 08/24/24 Rx #15 grams lidocaine 5 % topical patch 1 patch topical DAILY #15 ea 01/25/24 08/24/24 Rx (Lidoderm) [id number]-znmrtxkv-abrycju 1 cap PO TID SUPPLIMENT #90 caps 06/25/24 08/24/24 Rx 36,000-114,000-180,000 unit capsule,delay rel (Creon) tramadol 50 mg tablet 50 mg PO HS #30 tabs 06/25/24 08/24/24 Rx meloxicam 15 mg tablet See Rx Instructions .Route 08/17/24 08/24/24 Rx .COMPLEX #30 tabs rosuvastatin 20 mg tablet 20 mg PO DAILY . #30 tabs 08/17/24 08/24/24 Rx pregabalin 50 mg capsule 50 mg PO HS #30 caps 08/24/24 Rx hydrochlorothiazide 25 mg tablet 25 mg PO QDAY #90 tabs 09/06/24 Rx budesonide-formoterol HFA 160 2 puff inhalation BID 90 days 09/11/24 Rx mcg-4.5 mcg/actuation aerosol #10.2 grams inhaler New Prescriptions to Start Prescriptions: Allergies Allergy/AdvReac Type Severity Reaction Status Date / Time No Known Allergies Allergy Verified 06/12/24 09:17 Assessment and Plan *Assessment and plan (1) Left foot pain: Status: Acute Category: Medical Code(s): M79.672 - Pain in left foot (2) Lumbar radiculopathy: Status: Acute Category: Medical Code(s): M54.16 - Radiculopathy, lumbar region (3) Degenerative disc disease, lumbar: Status: Acute Category: Medical Code(s): M51.369 - Other intervertebral disc degeneration, lumbar region without mention of lumbar back pain or lower extremity pain Plan I did review over with her regarding her EMG findings that did show that it was more consistent with a chronic L4-L5 lumbosacral radiculopathy. I did discuss with her in future that it may be beneficial for us to look at doing a lumbar epidural at the L4-L5 level. Patient does have a previous history of lumbar fusion with hardware from Dr. Serrano. Patient does state that there are still times that she will have extreme pain there in her low back and that she does question whether the hardware has moved. Patient denies any recent follow-ups with her neurosurgeon. Patient does also make mention today that she is getting a new mattress that she is hoping will also help her back. Patient at her last visit did get a 3-month supply of her medications and does not need refills at this time. Patient will return to clinic in 2 months. Patient has been instructed to contact the clinic with any concerns before the next appointment. Dr. Paniagua has reviewed this note and agrees with this plan of care. This note was dictated using voice recognition software and make contain errors or omissions. All injections are used with Lidocaine, Bupivacaine and Depo Medrol. Occasionally urine drug screen is needed to verify patient's compliance with our office pain contract. This is ordered based off specific treatments related to chronic pain with the potential to abuse certain medications.
[2024-09-24 09:45] VITALS: BP 177/87; PULSE 57; RESP 16; O2SAT 96; BMI 30.1
== END 2024-09-24 23:59 | disposition home or self-care (01) ==
PROVIDERS: PCP Nurse Practitioner Family; Visit Provider Nurse Practitioner Family
DX: M79.672 Pain in left foot (principal); M51.16 Intervertebral disc disorders with radiculopathy, lumbar region; Z87.891 Personal history of nicotine dependence; Z79.899 Other long term (current) drug therapy
CPT/HCPCS: 99212; G0463

== ENCOUNTER 2024-10-18 16:56 | Outpatient (CLI) | payer BC, SELFPAY | END 2024-10-18 23:59 | disposition home or self-care (01) | LOC: LAB.DROPOF 16:57 | PROVIDERS: PCP Nurse Practitioner; Visit Provider Nurse Practitioner | DX: J39.2 Other diseases of pharynx (principal) | CPT/HCPCS: 87070 ==

== ENCOUNTER 2024-11-08 12:34 | Outpatient (CLI) | payer BC, SELFPAY ==
--- NOTE | 2024-11-08 12:41 | CT_ITS ---
FINAL REPORT CLINICAL HISTORY: lung cancer screening former smoker, quit 9.5 years ago, 1.5 ppd x 35 years COMPARISON: 11/22/2023 FINDINGS: CT CHEST LOW DOSE SCREENING DOSE: CTDI vol: 2.90 mGy, DLP: 104.46 mGy*cm TECHNIQUE: Axial CT without IV contrast administration using low dose protocol. This study was performed with techniques to keep radiation doses as low as reasonably achievable, (ALARA). Individualized dose reduction techniques using automated exposure control or adjustment of mA and/or kV according to the patient's size were employed. No acute lung disease is present. No pulmonary lesions are seen suspicious for neoplasm. There are moderate emphysematous changes. Chronic interstitial changes are identified. No pleural or pericardial effusion is seen. No adenopathy or mass lesion is present. IMPRESSION: Stable exam without evidence of malignancy. LUNG RADS CATEGORY 1 RECOMMENDATION: 12 month LDCT follow up Reviewed, Interpreted and Dictated by Vandana Moser MD Transcribed by Janice Jefferson Authenticated and [facility]
[2024-11-08 13:53] LABS: Albumin Level 4.5 g/dl (3.5-5.0)
[2024-11-08 13:55] LABS: Bilirubin,Unconjugated 0.4 mg/dL (0.0-1.1)
[2024-11-08 13:56] LABS: Alanine Aminotransferase 39 U/L (12-78); Alkaline Phosphatase 84 U/L (38-126); Aspartate Amino Transferase 37 U/L (14-36); Bilirubin,Direct 0.4 mg/dl (0.0-0.4); Bilirubin,Indirect 0.4 mg/dL (0.0-0.9); Bilirubin,Total 0.8 mg/dl (0.2-1.3); Total Protein,Serum 6.6 g/dl (6.3-8.2)
[2024-11-12 18:28] LABS: Bass Black IgE < 0.35 kU/L (<0.35); CLASS 0 (.)
[2024-11-15 15:34] LABS: Miscellaneous Test SCANNED IMAGE
[2024-11-17 08:45] LABS: F003-IgE Codfish <0.10 kU/L (Class 0); F024-IgE Shrimp <0.10 kU/L (Class 0); F040-IgE Tuna <0.10 kU/L (Class 0); F041-IgE Salmon <0.10 kU/L (Class 0); F147-IgE Flounder <0.10 kU/L (Class 0); F338-IgE Scallop <0.10 kU/L (Class 0); F369-IgE Catfish <0.10 kU/L (Class 0); Immunoglobulin E, Total 16 IU/mL (6-495)
== END 2024-11-08 23:59 | disposition home or self-care (01) ==
LOC: RAD 12:35
PROVIDERS: Nurse Practitioner; PCP Nurse Practitioner Family; Visit Provider Internal Medicine Pulmonary Disease
DX: F17.210 Nicotine dependence, cigarettes, uncomplicated (principal); R74.01 Elevation of levels of liver transaminase levels
CPT/HCPCS: 36415; 71271; 80076; 82785; 82950; 86003

== ENCOUNTER 2024-11-21 09:23 | Outpatient (POV) | payer BC, SELFPAY ==
--- NOTE | 2024-11-21 09:26 | EXP.PAIN.SOA ---
[facility] Disclaimer: The information contained in this section may have been updated after the patient was seen, as this information can be updated by other users. Medical History Rash of mouth present on examination Throat irritation Pharyngitis Patient states she has taken azithromycin and Medrol with current medications without complications or reactions GERD (gastroesophageal reflux disease) Vocal cord edema Hoarseness Thyroid Nodule COPD (chronic obstructive pulmonary disease) Allergic rhinitis, unspecified Mild persistent asthma Pulmonary emphysema Nocturnal hypoxemia Stopped smoking with greater than 30 pack year history Dyspnea on exertion History of sleep apnea Surgical History History of eye surgery eyelid repair; bilateral Previous back surgery History of section History of colonoscopy Family History Other Cancer Diabetes Hypertension Social History Smoking Status: Former smoker tobacco type: cigarettes packs per day: 1 alcohol intake: current alcohol intake frequency: holidays/special occasions only substance use type: denies use current occupational status: other Travel in the last 8 weeks: None household members: none housing: house number of children: 1 PM Subjective & Objective Subjective Subjective:: Patient is a pleasant 64-year-old female who presents today for 2-month follow-up. Today she rates her pain a 5 out of 10. She denies any new falls or changes. Patient does still have a chronic pain in her left foot. She states today however most of her pain is related to her right knee. Patient states the pain has been constant here lately and that yesterday it was very bad and that even woke her up in the middle of the night due to the sharp sensations in the right knee. Patient has had injections from our office in the past for this joint and it has helped. Patient does state that she is interested in additional injection therapy. Patient states the pain is interfering with her ability perform activities of daily living such as cooking and cleaning. Patient is currently prescribed tramadol 50 mg at bedtime, meloxicam 15 mg daily and pregabalin 50 mg at bedtime from our office. She denies any side effects from this medication. At her last visit we did discuss possible lumbar epidural from her EMG showing a chronic L4-L5 lumbosacral radiculopathy pertaining to the left foot pain. Review of Systems: General: No recent weight changes, no fever, no sleep disturbances Respiratory: No cough, no shortness of air, no recurring pulmonary infections Cardiovascular/peripheral vascular: No chest pain, no palpitations, no edema, no shortness of breath Gastrointestinal: No new onset incontinence, normal bowel movements reported Genitourinary: No new onset incontinence Musculoskeletal: Left foot pain, right knee pain Psychiatric: [Normal mood/affect] Neurological: [Denies weakness in extremities], [denies balance issues] Pain at rest (0-10 scale): 5 Objective Objective:: Physical Exam: General: Alert and oriented x3, no acute distress, pleasant and cooperative Lungs: Respirations even and unlabored, symmetrical chest expansion Eyes: PERRL Musculoskeletal: Flexion and extension of right knee somewhat guarded secondary to pain, [antalgic gait noted] Neurological: Speech clear, no gross sensory deficit Has patient had previous pain injection?: No Conservative treatment options previously tried: Home exercise plan Length of treatment: Longer than 12 weeks Meds Home Medications and Allergies Home Medications ?Medication ?Instructions ?Recorded ?Confirmed ?Type aspirin 81 mg tablet,delayed 81 mg PO DAILY . 07/02/22 11/21/24 History release (Adult Low Dose Aspirin) omeprazole 40 mg capsule,delayed 40 mg PO DAILY GERD 05/12/23 11/21/24 History release tgivaq-johfasoe-zmnyrjf 1 cap PO TID SUPPLIMENT #90 caps 06/25/24 11/21/24 Rx 36,000-114,000-180,000 unit capsule,delay rel (Creon) rosuvastatin 20 mg tablet 20 mg PO DAILY . #30 tabs 08/17/24 11/21/24 Rx pregabalin 50 mg capsule 50 mg PO HS #30 caps 08/24/24 11/21/24 Rx budesonide-formoterol HFA 160 2 puff inhalation BID 90 days 09/11/24 11/21/24 Rx mcg-4.5 mcg/actuation aerosol #10.2 grams inhaler meloxicam 15 mg tablet See Rx Instructions .Route 09/24/24 11/21/24 Rx .COMPLEX #30 tabs tramadol 50 mg tablet 50 mg PO HS #30 tabs 09/24/24 11/21/24 Rx cyanocobalamin (vitamin B-12) 1,000 mcg PO DAILY 10/02/24 11/21/24 History 1,000 mcg capsule lidocaine 5 % topical patch 1 patch topical DAILY PRN Pain 10/02/24 11/21/24 History (Lidoderm) linaclotide 290 mcg capsule 290 mcg PO DAILY #30 caps 10/02/24 11/21/24 Rx (Linzess) salmon oil 1,000 mg-omega-3 fatty 2 cap PO DAILY 10/02/24 11/21/24 History acids 210 mg capsule nystatin 100,000 unit/mL oral 10 ml PO TID swish and swallow #30 11/14/24 11/21/24 Rx suspension mL albuterol sulfate 90 mcg/actuation 2 inh inhalation QID PRN shortness 11/15/24 11/21/24 Rx aerosol inhaler of breath or wheezing 90 days #8.5 grams cetirizine 10 mg tablet 10 mg PO DAILY 11/15/24 11/21/24 History fluticasone propionate 50 2 spray intranasal DAILY 90 days 11/15/24 11/21/24 Rx mcg/actuation nasal #16 grams spray,suspension (Flonase Allergy Relief) New Prescriptions to Start Prescriptions: Allergies Allergy/AdvReac Type Severity Reaction Status Date / Time No Known Allergies Allergy Verified 11/15/24 10:32 Assessment and Plan *Assessment and plan (1) Left foot pain: Status: Acute Category: Medical Code(s): M79.672 - Pain in left foot (2) Lumbar radiculopathy: Status: Acute Category: Medical Code(s): M54.16 - Radiculopathy, lumbar region (3) Degenerative disc disease, lumbar: Status: Acute Category: Medical Code(s): M51.369 - Other intervertebral disc degeneration, lumbar region without mention of lumbar back pain or lower extremity pain (4) Bilateral knee pain: Status: Acute Qualifiers: Chronicity: chronic Qualified Code(s): M25.561 - Pain in right knee; M25.562 - Pain in left knee; G89.29 - Other chronic pain Category: Medical Code(s): M25.561 - Pain in right knee; M25.562 - Pain in left knee Plan Patient is experiencing worsening pain in her right knee with limited range of motion. I did discuss with patient I do believe she would benefit from repeat right knee intra-articular injection. Risk and benefits were discussed with the patient and she would like to proceed forward with this plan of care. Patient has tried and failed conservative therapy including continued at home stretching exercise for longer than 12 weeks between injections. Patient has had the chronic right knee pain for longer than 6 months with her last injection in January 2024. This injection did provide 85% improvement and lasted longer than 3 months. Patient will be scheduled for a right knee intra-articular injection. This will be done without fluoroscopic guidance or ultrasound. I did also discuss with the patient in future we may see about doing lumbar epidural to see if this improves her chronic low back pain as well as the radicular symptoms. We will follow-up on this in future. I will increase her concentration of her compounded cream and make sure that she does have refills on her tramadol, pregabalin and meloxicam. Patient agrees with this plan of care. Patient has been instructed to contact the clinic with any concerns before the next appointment. Dr. Paniagua has reviewed this note and agrees with this plan of care. This note was dictated using voice recognition software and make contain errors or omissions. All injections are used with Lidocaine, Bupivacaine and Depo Medrol. Occasionally urine drug screen is needed to verify patient's compliance with our office pain contract. This is ordered based off specific treatments related to chronic pain with the potential to abuse certain medications.
[2024-11-21 09:49] VITALS: BP 136/69; PULSE 47; RESP 16; O2SAT 97; BMI 30.1
== END 2024-11-21 23:59 | disposition home or self-care (01) ==
PROVIDERS: PCP Nurse Practitioner Family; Visit Provider Nurse Practitioner Family
DX: M79.672 Pain in left foot (principal); M51.16 Intervertebral disc disorders with radiculopathy, lumbar region; M25.561 Pain in right knee; M25.562 Pain in left knee; G89.29 Other chronic pain; Z87.891 Personal history of nicotine dependence; Z73.89 Other problems related to life management difficulty
CPT/HCPCS: 99212; G0463

== ENCOUNTER 2024-11-26 10:48 | Outpatient (CLI) | payer BC, SELFPAY ==
--- NOTE | 2024-11-26 10:51 | US_ITS ---
FINAL REPORT CLINICAL HISTORY: history of thyroid nodules COMPARISON: 01/03/2023 FINDINGS: THYROID ULTRASOUND: The right lobe of the thyroid gland measures 5.6 cm in sagittal length. There is a dominant nodule in the right lobe of the thyroid gland, measuring 17 x 9 mm in size, mixed solid and cystic, hyper or isoechoic. This is a TI-RADS category 3 nodule, is stable since the prior ultrasound of 2022. No follow-up is required at this time according to TI-RADS criteria. Several other smaller benign-appearing nodules are seen in the right lobe of the thyroid. The left lobe of the thyroid gland measures 4.7 cm in sagittal length. There are a multitude of subcentimeter mixed solid and cystic nodules, that all appear similar to the prior exam. No new nodules are identified. The isthmus of the thyroid gland measures 4 cm in thickness. IMPRESSION: Multiple thyroid nodules are noted bilaterally, with a dominant nodule in the right thyroid measuring 17 x 9 mm, a TI-RADS category 3 nodule. No follow-up is required at this time by TI-RADS criteria. The remainder of the nodules visualized are subcentimeter, mixed solid and cystic, and are similar to the prior ultrasound of 2022. No follow-up is required at this time by TI-RADS criteria. Reviewed, Interpreted and Dictated by Khadar Sellers MD Transcribed by Lay Varma Authenticated and [facility]
--- OUTSIDE RECORDS SUMMARY | 2024-11-29 20:22 | XMS_ITS | Data Portability ---
Author Organization PATRICA Martel CANAJOHARIE CLOSED Address [address] [place] [address] Care Team Providers Care Director Global Sales Name Role Phone JORDON BLANK Primary Care Provider Assessment No assessment recorded. Plan of Treatment Reminders Order Date Submit Date Provider Last Modified By Organization Details Last Modified Time Details Appointments None recorded. Lab None recorded. Referral None recorded. Procedures None recorded. Surgeries None recorded. Imaging None recorded. Medication Orders Pepcid 40 mg tablet 2022 023 [id number], [address] [address] [place], [id number], 3 11:18:17 omeprazole 40 mg capsule,del ayed release 2022 023 [facility] #[id number], [address] [address] [place], [id number], 3 11:18:17 Pepcid 40 mg tablet 2021 022 [facility] #[id number], [address] [address] [place], [id number], 2 12:56:44 Pepcid 40 mg tablet 2021 022 [place] [facility] #[id number], [address] [address] [place], [id number], 12:11:58 Patient TargetsNo targets recorded. Patient InstructionsNo instructions recorded. Reason for Referral None Reported. Results Created Date Observation Date Name Description Value Unit Range Abnormal Flag Note LastModifiedBy Organization Detail LastModifiedTime 11/03/19 23 11/02/2022 CT, maxil lofac ial, w/o contr ast [address] [address] Patisy pugh Name: SHANNON pugh : 1959 Patisy pugh Orderi ng Provid er: CARLEEN Pugh MARIAH EXAM DATE: 2022 EXAM: CT IMAGE GUIDED SINUS SCAN WO CONTRA ST HISTOR Y: 62-yea r-old female with dyspho raul and nasal conges tion. COMPAR JAREN: None. TECHNI QUE: 1.0 mm axial direct images were obtain ed, and axial, lynn l, and sagitt al recons tructi on images were genera geremias from the source images . FINDIN GS: Maxill tanvi sinuse s: There is no mucosa l thicke genny in the maxill tanvi sinuse s. Ostia: The left and right osteom eatal units, and fronta l and spheno id sinus ostia are patent . Ethmoi d sinuse s: The ethmoi d sinuse s are clear. Fronta l sinuse s: The fronta l sinuse s are clear. Spheno id sinuse s: The spheno id sinuse s appear clear. Nasal septum and nasal passag es: The nasal septum is midlin e. There is no mucosa l hypert rophy of the nasal turbin ates. The visual ized brain parenc hyma appear s normal . The orbits are normal in appear ance. No paraph arynge al mass is identi fied. The visual ized mastoi d air cells appear normal . IMPRES ARASELI: 1. The parana kellie sinuse s are clear. Interp reted By: Cortez newsome MD Electr onical ly Signed By: Cortez newsome MD on 023 12:13 PM [facility] Radiology [facility] [address] [place], [phone], 11/02/2022 15:10:59 Result Notes None recorded. Problems Name Problem SNOMED Code Status Onset Date Resolution Date Notes Provider Name and Address Organization Details Recorded Time Chronic obstructive pulmonary disease 36421775 Active 2021 [facility] 2 08:18:10 Mendoza's esophagus 213415663 Active 2021 [facility] 2 08:21:51 Problem Notes None recorded. Procedures Surgical History Date Name Laterality Status Provider Name and Address Organization Details Recorded Time 11/03/19 23 Nasolaryngoscopy completed HERMAN LEMUS MD [address] [place] [address], [phone] 11/02/2022 10:53:29 09/20/19 23 Nasolaryngoscopy completed HERMAN LEMUS MD [address] [place] [address], [phone] 09/20/2022 11:31:01 06/22/20 22 Nasolaryngoscopy completed HERMAN LEMUS MD [address] [place] [address], [phone] 06/22/2022 12:11:14 Back Surgery completed [facility] 06/22/2022 08:19:58 section completed [facility] 06/22/2022 08:20:15 Imaging Results Imaging Date Name Status LastModified by Organiz ation Details LastModified Time 11/02/2022 CT, maxillofacial , w/o contrast completed [email or web address] [facility] Radiology [facility] [address] [place] [address], [phone], 11/02/2022 15:10:59 Procedure Notes None recorded. Medical Equipment None Reported. Allergies Allergen ID Allergen Name Allergen Category Reaction Reaction Severity Criticality Documentation Date Start Date Code Code System Note Provider Name and Address Organization Details Recorded Time 928108 codeine medicatio n Not available Not available Not available 07/16/20162010 2670 RxNorm Comme nt: Creat ed By: Aryan Ortega Judy eated Date: 2010 2:55: 53 PM; Not Available [facility] 6 05:50:00 Medications Name Sig Start Date Stop Date Status Note LastModified by Organization Details LastModified Time Singulair 10 mg tablet Take 1 tablet every day by oral route. active Not Available Not Available No t Available Neurontin 300 mg capsule Bedtime 06/22 completed Frequenc y: hs;Medic ation Descript ion: gabapent in; Dosage:1 ; Route:or al; refills: 5; Quantity :30 capsule Not Available Not Available Not Available Lortab 7.5 mg-500 mg tablet Every six to eight hours 06/22 completed Frequenc y: q6-8h;Al t Frequenc y: prn pain;Med ication Descript ion: acetamin ophen-hy drocodon e; Dosage:1 ; Route:or al; refills: 0; Quantity :45 tablet Not Available Not Available Not Available famotidin e 40 mg tablet TAKE 1 TABLET BY MOUTH EVERY DAY AT BEDTIME 2022 active Not Available Not Available Not Avai lable omeprazol e 40 mg capsule,d elayed release TAKE 1 CAPSULE BY MOUTH EVERY DAY active Not Available Not Available No t Available Excedrin prn pain 06/22 completed Frequenc y: prn pain;Med ication Descript ion: APAP/ASA /caffein e; Route:or al; refills: 0 Not Available Not Available Not Available budesonid e 160 mcg-glyco pyr 9 mcg-formo t 4.8 mcg/actua tion HFA inhaler Inhale 2 puffs twice a day by inhalati on route. active Not Available Not Available No t Available Vitals Date Recorded Body height Body mass index (BMI) Body weight Systolic blood pressure Diastolic blood pressure Provider Name and Address Organization Details Last Updated DateTime 06/22/2022 160.02 cm 29.4 kg/m2 80533.33 g 146 mm[Hg] 80 mm[Hg] [facility] 2 08:15:55 Date Recorded Body height Body mass index (BMI) Body weight Heart rate Systolic blood pressure Diastolic blood pressure Provider Name and Address Organization Details Last Updated DateTime 2 160.02 cm 29.2 kg/m2 64405.7 4 g 80 /min 153 mm[Hg] 99 mm[Hg] [facility] 2 10:36:48 Date Recorded Body height Body mass index (BMI) Body weight Provider Name and Address Organization Details Last Updated DateTime 09/20/2022 160.02 cm 29.2 kg/m2 62497.74 g Jen Kristine [facility] 09/20/2022 10:07:20 Date Recorded Heart rate Systolic blood pressure Diastolic blood pressure Provider Name and Address Organization Details Last Updated DateTime 09/20/2022 65 /min 139 mm[Hg] 93 mm[Hg] [facility] 09/20/2022 10:22:31 Date Recorded Body height Body mass index (BMI) Body weight Heart rate Systolic blood pressure Diastolic blood pressure Provider Name and Address Organization Details Last Updated DateTime 3 160.02 cm 28.2 kg/m2 90399.1 9 g 77 /min 141 mm[Hg] 96 mm[Hg] [facility] 3 10:25:48 Social History Question Answer Notes LastModified by Organizat ion Details LastModified Time Tobacco Smoking Status [facility] 08:19:16 What Is Your Level Of Alcohol Consumption? Occasional Information not available 06/22/2022 When Did You Quit Smoking? 6-10yearssince lastcigarette Jul 21 2015 Information not available 06/22/2022 At What Age Did You Start Smoking Tobacco? 17 Information not available 06/22/2022 Do You Use Any Illicit Or Recreational Drugs? No Information not available 06/22/2022 Has Tobacco Cessation Counseling Been Provided? No Information not available 06/22/2022 How Many Years Have You Smoked Tobacco? 7 Information not available 06/22/2022 Have You Recently Traveled Abroad? No Information not available 06/22/2022 Sex: Unknown Functional Status None recorded. Mental Status None recorded. Family History Relationship Description Onset Age of this Age Resolved Age Notes LastModified by Organization Details LastModified Time Father No current problems or disability bcable Not available 06/22 08:18:18 Mother No current problems or disability bcable Not available 06/22 08:18:18 Medical History No medical history recorded. Gynecological HistoryNo gynecological history recorded. Obstetrics History GPAL:G 0 P 0 0 0 0 Past Encounters Encounter ID Performer Location Encounter Start Date Encounter Closed Date Diagnosis/Indication Diagnosis SNOMED-CT Code Diagnosis ICD10 Code Diagnosis Note [id number] HERMAN LEMUS MD [facility] [address] [place] [address] 06/22/2022 08:00:47 06/22/2022 12:23:28 Chronic hoarseness 6561295135 105 R49.0 Has a history of Mendoza's esophagus. Nasolaryng oscopy performed, no abnormalit ies other than edema and inflammati on of the larynx secondary to reflux. Currently on omeprazole . Will add Pepcid to take at bedtime and recommend adding sodium alginate. F/u 6wks Dysphagia 29314748 R13.1 0 Gastroesop hageal reflux disease without esophagitis 420177381 K21.9 History of Mendoza's esophagus 0092805337 8064460 Z87.19 [id number] HERMAN LEMUS MD [facility] [address] [place] [address] 1 08/03/2022 09:32:56 08/03/2022 13:03:22 Chronic hoarseness 0246993212 105 R49.0 Secondary to GERD. Improving w/ adding Pepcid, sodium alginate. Continue. Refill Pepcid. F/u 6wks Dysphagia 28038030 R13.1 0 Gastroesop hageal reflux disease without esophagitis 161459939 K21.9 History of Mendoza's esophagus 8314754693 0177724 Z87.19 [id number] HERMAN LEMUS MD [facility] [address] [place] [address] 1 09/20/2022 09:33:57 09/20/2022 11:47:16 Chronic hoarseness 0751419778 105 R49.0 Secondary to GERD. Improving w/ adding Pepcid to omeprazole , sodium alginate but recently had a flare-up. Nasolaryng oscopy repeated because of the worsening, only abnormalit y is mild edema of the vocal folds, no nodules or polyps. Could try voice therapy. We will set that up. Continue reflux therapy. F/u 6wks Dysphagia 02657018 R13.1 0 Gastroesop hageal reflux disease without esophagitis 752107785 K21.9 History of Mendoza's esophagus 5540823873 5637343 Z87.19 [id number] HERMAN LEMUS MD [facility] [address] [place] [address] 11/02/2022 09:29:30 11/02/2022 11:15:10 Chronic hoarseness 9284074390 105 R49.0 Secondary to GERD. Was improving w/ Pepcid, omeprazole , sodium alginate but recently having a flare-up. Went to voice therapy once and told her voice sounded good. Would recommend continuing as it is still present. Nasolaryng oscopy performed, swelling still present. Probably underlying reflux. CT sinus as she has seen slight improvemen t w/ antibiotic s and to r/o underlying infectious etiology. F/u afterward Gastroesop hageal reflux disease without esophagitis 957318722 K21.9 History of Mendoza's esophagus 9607560310 2777575 Z87.19 Health Concerns Section Related Observation LastModified by Organization Detai ls LastModified Time None Recorded Concern Status LastModified by Organization Details LastModified Time None Recorded Advance Directives Directive None Recorded Payers Encounter Date Sequence Insurance Name Policy Number Policy Vu Covered Member ID Vu Member ID Guarantor Name 06/22/2022 1 [place] [employer] Shannon Flowers Vitor [id number] Shannon Flowers Vitor 08/03/2022 1 [place] [employer] [employer] 104 Shannon Flowers Vitor [id number] Shannon Flowers Vitor 09/20/2022 1 [place] [employer] 104 Shannon Flowers Vitor [id number] Shannon Flowers Vitor 11/02/2022 1 [place] [employer] 104 Shannon Flowers Vitor [id number] Shannon Flowers Vitor Notes Date Note Type Note Provider Name and Address Organization Details Recorded Time 06/22/2022 text/html Chief Complaint: HoarsenessTiminmoDuration:Almost constant, fluctuates in severityLocation:Severi ty:ModQuality:Context:M odifying Factors:Hx of Sukhdeep's Esophagus, last egd 2ys ago, on Omeprazole 40 mg daily, had a recent Thyroid nodule Bx that she stated was benign, montelukast, history of smoking--quit 7yrs ago, has had vocal cords scraped due to a thickening on VCs--stated cells were precancerousAssoc signs and symptoms:Wants to clear throat often, intermittent fb sensation, dysphagia, dry throat, coughing, tongue feels like it is prickly in the back, hx of Reflux but no acid reflux symptoms, has some PND, thinks she might mouth breathe or snore when sleeping, no hemoptysis, had possible tonsil stone on tonsil 1.5mo ago HERMAN LEMUS MD [address] [place] [address], [phone], [facility] 06/22/2022 12:11:56 08/03/2022 text/html Chief Complaint: Chronic hoarsenessTiming:Durati on:Location:Severity: improvingQuality:Contex t: Hx of Mendoza's esophagusModifying Factors: omeprazole, Pepcid, sodium alginate - symptoms are improvingAssoc Signs and Symptoms: occasional throat clearing - improving, hoarseness has improved, fb sensation, dysphagia--foods not getting stuck, dry throat, coughing, has some PND, no hemoptysis, still has some heartburn HERMAN LEMUS MD [address] [place] [address], [phone], [facility] 08/03/2022 12:56:41 09/20/2022 text/html Chief Complaint: Chronic hoarsenessTiming: symptoms have returned for the last 2 daysDuration: constantLocation:Severi ty: improved but has returned not associated w/ any change other than weather changesQuality:Context: Hx of Mendoza's esophagus, talks a lot for her job, no hx of smokingModifying Factors: Pepcid 40, omeprazole 40mg, Gaviscon Advance, flonaseAssoc Signs and Symptoms: hoarseness improved for a time but has returned, no heartburn symptoms, mild dysphagia, dry cough--feels like mucus present in the lower throat but does not producing anything when coughing, heavy mucous, nasal congestion HERMAN LEMUS MD [address] [place] [address], [phone], [facility] 09/20/2022 11:31:41 11/02/2022 text/html Chief Complaint: Chronic Hoarseness secondary to GERDTiming:Duration: IntermittentLocation: vfSeverity: was improving but 2wks ago started to become hoarse again, possibly improving again over last few daysQuality: raspyContext: Hx of Mendoza's esophagus, no hx of smokingModifying Factors: Tried voice therapy once, currently on augmentin, Pepcid 40, omeprazole 40mg, Gaviscon Advance, flonaseAssoc Signs and Symptoms: persistent hoarseness improving in the last couple days, cough, throat clearing, occasional foreign body sensation, no sore throat, nasal obstruction HERMAN LEMUS MD [address] [place] [address], [phone], [facility] 11/02/2022 10:54:05 OBGyn Episode No OBEpisode recorded.
== END 2024-11-26 23:59 | disposition home or self-care (01) ==
LOC: RAD 10:49
PROVIDERS: PCP Nurse Practitioner Family; Visit Provider Nurse Practitioner
DX: E04.1 Nontoxic single thyroid nodule (principal)
CPT/HCPCS: 76536

== ENCOUNTER 2024-12-10 06:58 | Outpatient (CLI) | payer BC, SELFPAY ==
--- NOTE | 2024-12-10 07:00 | CT_ITS ---
FINAL REPORT TECHNIQUE: Thin section axial CT images with coronal and sagittal reformats were performed through the neck. This study was performed with techniques to keep radiation doses as low as reasonably achievable (ALARA). Individualized dose reduction techniques using automated exposure control or adjustment of mA and/or kV according to the patient's size were employed. CLINICAL HISTORY: hoarseness COMPARISON: 02/28/2023 FINDINGS: No mass lesion is present . Salivary glands are normal. The nasopharynx, oropharynx, epiglottis, and larynx are unremarkable in appearance. The thyroid again is noted to be somewhat enlarged, with bilateral hypodense nodules, not significantly changed since the prior exam. There are small bilateral cervical lymph nodes present, not significantly changed since the prior exam. There are changes of emphysema in the lung apices. The paranasal sinuses and mastoid air cells are clear. IMPRESSION: Thyroid gland is somewhat enlarged, with bilateral hypodense nodules, not significantly changed since the prior exam of 2022. Nonspecific bilateral cervical lymph nodes, once again not significantly changed since the prior exam. Reviewed, Interpreted and Dictated by Ruby Andrews MD Transcribed by Lay Varma Authenticated and [facility]
--- OUTSIDE RECORDS SUMMARY | 2024-12-10 07:01 | XMS_ITS | Data Portability ---
Author Organization PATRICA Martel [place] [facility] Address [address] [facility] [place] [address] Care Team Providers Care Tool Salvage Worker Name Role Phone JORDON BLANK Primary Care Provider Assessment No assessment recorded. Plan of Treatment Reminders Order Date Submit Date Provider Last Modified By Organization Details Last Modified Time Details Appointments None recorded. Lab None recorded. Referral None recorded. Procedures None recorded. Surgeries None recorded. Imaging None recorded. Medication Orders Pepcid 40 mg tablet 2022 023 [id number], [address] [address] [place], [id number], 3 11:18:17 omeprazole 40 mg capsule,del ayed release 2022 023 [facility] #[id number], [address] [address] [place], [id number], 3 11:18:17 Pepcid 40 mg tablet 2021 022 [facility] #[id number], [address] [address] [place], [id number], 2 12:56:44 Pepcid 40 mg tablet 2021 022 [place] [facility] #[id number], [address] [address] [place], [id number], 12:11:58 Patient TargetsNo targets recorded. Patient InstructionsNo instructions recorded. Reason for Referral None Reported. Results Created Date Observation Date Name Description Value Unit Range Abnormal Flag Note LastModifiedBy Organization Detail LastModifiedTime 11/03/19 23 11/02/2022 CT, maxil lofac ial, w/o contr ast [address] [address] Patisy pugh Name: SHANNON pugh : 1959 [...] Cortez newsome MD on 023 12:13 PM [email or web address] [facility] [address] [place], [phone], 11/02/2022 15:10:59 Result Notes None recorded. Problems Name Problem SNOMED Code Status Onset Date Resolution Date Notes Provider Name and Address Organization Details Recorded Time Chronic obstructive pulmonary disease 79172970 Active 2021 [facility] 2 08:18:10 Mendoza's esophagus 885135260 Active 2021 [facility] 2 08:21:51 Problem Notes None recorded. Procedures Surgical History Date Name Laterality Status Provider Name and Address Organization Details Recorded Time 11/03/19 23 Nasolaryngoscopy completed HERMAN LEMUS MD [address] [place] [address], [phone] 11/02/2022 10:53:29 09/20/19 23 Nasolaryngoscopy completed HERMAN LEMUS MD [address] [place] [address], [phone] 09/20/2022 11:31:01 06/22/20 22 Nasolaryngoscopy completed HERMAN LEMUS MD [address] [place] [address], [phone] 06/22/2022 12:11:14 Back Surgery completed [facility] 06/22/2022 08:19:58 section completed [facility] 06/22/2022 08:20:15 Imaging Results Imaging Date Name Status LastModified by Organiz ation Details LastModified Time 11/02/2022 CT, maxillofacial , w/o contrast completed [facility] [address] [place] [address], [phone], 11/02/2022 15:10:59 Procedure Notes None recorded. Medical Equipment None Reported. Allergies Allergen ID Allergen Name Allergen Category Reaction Reaction Severity Criticality Documentation Date Start Date Code Code System Note Provider Name and Address Organization Details Recorded Time 899270 codeine medicatio n Not available Not available Not available 07/16/20162010 2670 RxNorm Comme nt: Creat ed By: Aryan Ortega Judy eated Date: 2010 2:55: 53 PM; Not Available [facility] 6 05:50:00 Medications Name Sig Start Date [...] Updated DateTime 06/22/2022 160.02 cm 29.4 kg/m2 99820.33 g 146 mm[Hg] 80 mm[Hg] [facility] 2 08:15:55 Date Recorded Body height Body mass index (BMI) Body weight Heart rate Systolic blood pressure Diastolic blood pressure Provider Name and Address Organization Details Last Updated DateTime 2 160.02 cm 29.2 kg/m2 83891.7 4 g 80 /min 153 mm[Hg] 99 mm[Hg] [facility] 2 10:36:48 Date Recorded Body height Body mass index (BMI) Body weight Provider Name and Address Organization Details Last Updated DateTime 09/20/2022 160.02 cm 29.2 kg/m2 21771.74 g Jen Kristine [facility] 09/20/2022 10:07:20 Date Recorded Heart rate Systolic blood pressure Diastolic blood pressure Provider Name and Address Organization Details Last Updated DateTime 09/20/2022 65 /min 139 mm[Hg] 93 mm[Hg] [facility] 09/20/2022 10:22:31 Date Recorded Body height Body mass index (BMI) Body weight Heart rate Systolic blood pressure Diastolic blood pressure Provider Name and Address Organization Details Last Updated DateTime 3 160.02 cm 28.2 kg/m2 69154.1 9 g 77 /min 141 mm[Hg] 96 mm[Hg] [facility] 3 10:25:48 Social History Question Answer Notes LastModified by Organizat ion Details LastModified Time Tobacco Smoking Status [facility] 06/22/2022 08:19:16 What Is Your Level Of [...] SNOMED-CT Code Diagnosis ICD10 Code Diagnosis Note [id number] HERMAN LEMUS MD [facility] [address] [place] [address] 06/22/2022 08:00:47 06/22/2022 12:23:28 Chronic hoarseness 6314822816 105 R49.0 Has a history of Mendoza's esophagus. Nasolaryng oscopy performed, no abnormalit ies other than edema and inflammati on of the larynx secondary to reflux. Currently on omeprazole . Will add Pepcid to take at bedtime and recommend adding sodium alginate. F/u 6wks Dysphagia 57899771 R13.1 0 Gastroesop hageal reflux disease without esophagitis 868695807 K21.9 History of Mendoza's esophagus 6945815072 9849925 Z87.19 [id number] HERMAN LEMUS MD [facility] [address] [place] [address] 1 08/03/2022 09:32:56 08/03/2022 13:03:22 Chronic hoarseness 9842915425 105 R49.0 Secondary to GERD. Improving w/ adding Pepcid, sodium alginate. Continue. Refill Pepcid. F/u 6wks Dysphagia 35913322 R13.1 0 Gastroesop hageal reflux disease without esophagitis 076048167 K21.9 History of Mendoza's esophagus 4966706770 3831477 Z87.19 [id number] HERMAN LEMUS MD [facility] [address] [place] [address] 1 09/20/2022 09:33:57 09/20/2022 11:47:16 Chronic hoarseness 9998771855 105 R49.0 Secondary to GERD. Improving w/ adding Pepcid to omeprazole , sodium alginate but recently had a flare-up. Nasolaryng oscopy repeated because of the worsening, only abnormalit y is mild edema of the vocal folds, no nodules or polyps. Could try voice therapy. We will set that up. Continue reflux therapy. F/u 6wks Dysphagia 57542499 R13.1 0 Gastroesop hageal reflux disease without esophagitis 080265706 K21.9 History of Mendoza's esophagus 0398078819 8638175 Z87.19 [id number] HERMAN LEMUS MD [facility] [address] [place] [address] 11/02/2022 09:29:30 11/02/2022 11:15:10 Chronic hoarseness 6166595194 105 R49.0 Secondary to GERD. Was improving [...] afterward Gastroesop hageal reflux disease without esophagitis 440325606 K21.9 History of Mendoza's esophagus 5069445884 1166644 Z87.19 Health Concerns Section Related Observation LastModified by Organization Detai ls LastModified Time None Recorded Concern Status LastModified by Organization Details LastModified Time None Recorded Advance Directives Directive None Recorded Payers Encounter Date Sequence Insurance Name Policy Number Policy Vu Covered Member ID Vu Member ID Guarantor Name 06/22/2022 1 [place] [employer] [id number] Shannon Flowers Vitor [id number] Shannon Flowers Vitor 08/03/2022 1 [place] [employer] [id number] Shannon Flowers Vitor [id number] Shannon Flowers Vitor 09/20/2022 1 [place] [employer] 104 Shannon Flowers Vitor [id number] Shannon Flowers Vitor 11/02/2022 1 [place] [employer] 104 Shannon Flowers Vitor [id number] Shannon Flowers Vitor Notes Date Note Type [...] on tonsil 1.5mo ago HERMAN LEMUS MD [address] [place] [address], [phone], [facility] 06/22/2022 12:11:56 08/03/2022 text/html Chief Complaint: Chronic hoarsenessTiming:Durati on:Location:Severity: improvingQuality:Contex t: Hx of Mendoza's esophagusModifying Factors: omeprazole, Pepcid, sodium alginate - symptoms are improvingAssoc Signs and Symptoms: occasional throat clearing - improving, hoarseness has improved, fb sensation, dysphagia--foods not getting stuck, dry throat, coughing, has some PND, no hemoptysis, still has some heartburn HERMAN LEMUS MD [address] [place] [address], [phone], [facility] 08/03/2022 12:56:41 09/20/2022 text/html Chief Complaint: Chronic [...] heavy mucous, nasal congestion HERMAN LEMUS MD [address] [place] [address], [phone], [facility] 09/20/2022 11:31:41 11/02/2022 text/html Chief Complaint: Chronic [...] sore throat, nasal obstruction HERMAN LEMUS MD [address] [place] [address], [phone], [facility] 11/02/2022 10:54:05 OBGyn Episode No OBEpisode recorded.
== END 2024-12-10 23:59 | disposition home or self-care (01) ==
LOC: RAD 06:59
PROVIDERS: PCP Nurse Practitioner Family; Visit Provider Nurse Practitioner
DX: E04.9 Nontoxic goiter, unspecified (principal)
CPT/HCPCS: 70490

== ENCOUNTER 2025-01-15 08:16 | Day surgery (SDC) | payer BC, SELFPAY ==
[2025-01-15 08:29] VITALS: BP 102/63; PULSE 70; RESP 16; TEMP 36.4; O2SAT 96; BMI 30.1
[2025-01-15] MEDS: DEXAMETHASONE 10MG/ML 1ML VIAL 10 MG (08:40)
[2025-01-15 08:41] VITALS: BP 110/57; PULSE 62; RESP 18; O2SAT 96
[2025-01-15] MEDS: BUPIVACAINE 0.25% 10ML INJ 25 MG IJ (08:41)
[2025-01-15] MEDS: LIDOCAINE 1% 5ML PF VIAL 5 ML (08:41)
[2025-01-15 08:42] VITALS: BP 110/57; PULSE 62; RESP 18; O2SAT 96
--- NOTE | 2025-01-15 08:46 | EXP.PAIN.PRO ---
Procedure Date: 01/15/25 Time: 08:30 Anesthesiologist:: Bubba Hair CRNA Complications:: None Pre-procedure Diagnosis:: DJD right knee. Chronic right knee pain. Post-procedure Diagnosis:: Same. Indications for Procedure:: Patient is a very pleasant 64-year-old female comes our clinic today for right intra-articular knee injection of cortisone and local anesthetic.. Patient describes right knee pain as constant, dull, aching. She has responded well to intra-articular knee injections in the past. She rates her knee pain 7/10 today. Procedure Details:: Details of the procedure explained to the patient. The patient taken procedure room placed in the sitting position. The over the right knee was cleaned using chlorhexidine as a cleansing solution. Using a 22-gauge inch and half needle the right knee joint was accessed from the anterior lateral position. After negative aspiration 4 cc of 1% lidocaine +4 cc of 0.25% Marcaine and 40 mg of Depo-Medrol was injected. Patient tolerated procedure without difficulty. There are no complications. Plan and Disposition:: Patient was discharged without incident.
[2025-01-15 08:55] VITALS: BP 110/75; PULSE 67; RESP 16; O2SAT 95
[2025-01-15 09:25] LABS: Basophils # 0.1 K/mm3 (0-0.2); Basophils % 0.7 % (0.1-2.0); Eosinophils # 0.1 Kmm3 (0.0-0.4); Eosinophils % 1.5 % (0.1-12.0); Immature Granulocytes # 0.01 10^3uL; Immature Granulocytes % 0.1 %; Lymphocytes # 1.7 K/mm3 (0.7-4.5); Lymphocytes % 19.8 % (10-50); Mean Corpuscular HGB Conc 34.9 g/dL (31.8-35.4); Mean Corpuscular Hemoglobin 31.5 pg (27.0-31.2); Mean Corpuscular Volume 90.3 fl (81-99); Monocytes # 0.7 K/mm3 (0.1-1.0); Monocytes % 8.2 % (1.7-9.3); Neutrophils # 5.8 K/mm3 (1.8-7.8); Neutrophils % 69.7 % (37.0-80.0); Nucleated Red Blood Cells # 0 10^3/uL; Nucleated Red Blood Cells % 0 %; Platelet Count 209 K/mm3 (142-424); Red Blood Count 4.76 M/mm3 (4.20-5.40); Red Cell Distribution Width 12.6 % (11.5-17.5); Red Cell Distribution Width-SD 41.3 fL; White Blood Count 8.4 K/mm3 (4.8-10.8)
[2025-01-15 10:07] LABS: Alanine Aminotransferase 29 U/L (12-78); Albumin Level 4.5 g/dl (3.5-5.0); Albumin/Globulin Ratio 2.1 (1.1-1.8); Alkaline Phosphatase 71 U/L (38-126); Aspartate Amino Transferase 33 U/L (14-36); Bilirubin,Total 0.7 mg/dl (0.2-1.3); Blood Urea Nitrogen 17 mg/dl (7-17); Calcium 10.1 mg/dl (8.4-10.2); Carbon Dioxide 26 mmol/L (22.0-30.0); Chloride 107 mmol/L (98-107); Chol/HDL Ratio 2.1 (1-3.5); Cholesterol 124 mg/dl (140-200); Creatinine Clearance Estimated 70 mL/min (50-200); Estimated Glomerular Filt Rate 85 ml/min (>60); GFR (African American) 102 ML/MIN (>60); Globulin 2.1 g/dL (1.3-3.2); Glucose 106 mg/dl (74-100); HDL Cholesterol 58 mg/dl (40-60); Sodium 139 mmol/L (136-145); Total Protein,Serum 6.6 g/dl (6.3-8.2); Triglycerides 73 mg/dl (30-150); VLDL Cholesterol 15 mg/dL (0-40)
[2025-01-15 10:09] LABS: Anion Gap 10.4 mEq/L (5-15); Potassium 4.4 mmoL/L (3.5-5.1)
[2025-01-15 10:23] LABS: 25-OH Vitamin D, Total 39.6 ng/mL (30-100)
[2025-01-15 10:24] LABS: Free Thyroxine Index 2.5 ug/dL (5.93-13.13); T4 (Thyroxine) 8.2 ug/dl (5.53-11.0); Triiodothryronine (T3) Uptake 31 % (23.5-40.5)
[2025-01-15 10:38] LABS: Thyroid Stimulating Hormone 0.54 uIU/mL (0.465-4.68); Thyroid Stimulating Hormone 0.56 uIU/mL (0.465-4.68)
[2025-01-16 08:35] LABS: Estradiol 5.9 pg/mL (0.0-54.7); LH <0.3 mIU/mL (7.7-58.5); Progesterone 0.2 ng/mL (.)
== END 2025-01-15 08:55 | disposition home or self-care (01) ==
PROVIDERS: Nurse Practitioner Obstetrics & Gynecology; PCP Nurse Practitioner Family; Visit Provider Nurse Anesthetist, Certified Registered
DX: M17.11 Unilateral primary osteoarthritis, right knee (principal); M25.561 Pain in right knee; G89.29 Other chronic pain; R53.83 Other fatigue
CPT/HCPCS: 20610; 36415; 80053; 80061; 82306; 82670; 83001; 83002; 84144; 84436; 84443; 84479; 85025; J1100

== ENCOUNTER 2025-01-21 06:02 | Day surgery (SDC) | payer BC, SELFPAY ==
[2025-01-18 09:20] VITALS: BMI 30.1
[2025-01-21 06:47] VITALS: BP 102/58; PULSE 57; RESP 18; TEMP 36.1; O2SAT 97
[2025-01-21] MEDS: LACTATED RINGERS 1000ML 1,000 ML 50 ML IV (06:47)
--- NOTE | 2025-01-21 07:12 | P.PNANES_ITS ---
[facility] Disclaimer: The information contained in this section may have been updated after the patient was seen, as this information can be updated by other users. Medical History Rash of mouth present on examination Throat irritation Pharyngitis GERD (gastroesophageal reflux disease) Vocal cord edema Hoarseness Thyroid Nodule COPD (chronic obstructive pulmonary disease) Allergic rhinitis, unspecified Mild persistent asthma Pulmonary emphysema Nocturnal hypoxemia Stopped smoking with greater than 30 pack year history Dyspnea on exertion History of sleep apnea Surgical History H/O toe surgery History of eye surgery Previous back surgery History of section History of colonoscopy Family History Other Cancer Diabetes Hypertension Social History Smoking Status: Former smoker tobacco type: cigarettes packs per day: 1 alcohol intake: current alcohol intake frequency: holidays/special occasions only substance use type: denies use current occupational status: retired Travel in the last 8 weeks?: None household members: none housing: house number of children: 1 Have you lived/traveled outside US in past 30 days?: No Contact w/someone who lives/traveled outside US past 30 days?: No Exposure to someone with infectious disease in past 14 days?: No Do you have a fever (greater than 100.4 F or 38 C)?: No Have you tested positive for COVID-19?: No Exposed to someone with COVID-19 in past 14 days?: No Do you have a sore throat?: No Do you have a cough?: No Do you have any weakness?: No Do you have any diarrhea?: No Are you experiencing any unusual bleeding?: No Do you have any muscle aches/pain?: No Do you have any abdominal pain?: No Are you experiencing loss of taste or smell?: No [facility] Anesthesia Checklist Patient Identification Patient Identification: Arm Band Structural Data Admitted From: Home Planned Operative Procedure/s: EGD Consent for Planned Operative Procedure(s) Verified: Yes Verified Documents: Surgical Consent and History and Physical NPO Status Verified Time NPO: 00:00 Additional verifications Anesthesia Reactions: No Hx Blood Transfusions: No Blood Transfusion Reaction: No Airway Assessment Mallampati Score:: Class II C-Spine Mobility Assessed: Yes TMJ Mobility Assessed: Yes Dentition: Good Dentition Neurological Assessment Level of Consciousness: Awake, Alert and Appropriate Anesthesia Plan Anesthesia Risk discussed: Yes Anesthesia Plan: Verified ASA Class: III Anesthesia Type: MAC
--- NOTE | 2025-01-21 07:30 | EXP.HP ---
History of Present Illness *Admission Date: 01/21/25 *Reason for visit:: Dysphagia/throat clearing *History of present illness: Mrs. Adler is a 64-year-old female with frequent throat clearing, globus and dysphagia. She has some hoarseness. The patient does report some bloating, early satiety and belching. She is here for diagnostic EGD. The examination is deemed medically necessary for diagnostic EGD. The patient has been seen, interviewed and examined prior to the procedure by both myself and the anesthesia provider. [facility] Disclaimer: The information contained in this section may have been updated after the patient was seen, as this information can be updated by other users. Medical History Rash of mouth present on examination Throat irritation Pharyngitis GERD (gastroesophageal reflux disease) Vocal cord edema Hoarseness Thyroid Nodule COPD (chronic obstructive pulmonary disease) Allergic rhinitis, unspecified Mild persistent asthma Pulmonary emphysema Nocturnal hypoxemia Stopped smoking with greater than 30 pack year history Dyspnea on exertion History of sleep apnea Surgical History H/O toe surgery History of eye surgery Previous back surgery History of section History of colonoscopy Family History Other Cancer Diabetes Hypertension Social History Smoking Status: Former smoker tobacco type: cigarettes packs per day: 1 alcohol intake: current alcohol intake frequency: holidays/special occasions only substance use type: denies use current occupational status: retired Travel in the last 8 weeks?: None household members: none housing: house number of children: 1 Have you lived/traveled outside US in past 30 days?: No Contact w/someone who lives/traveled outside US past 30 days?: No Exposure to someone with infectious disease in past 14 days?: No Do you have a fever (greater than 100.4 F or 38 C)?: No Have you tested positive for COVID-19?: No Exposed to someone with COVID-19 in past 14 days?: No Do you have a sore throat?: No Do you have a cough?: No Do you have any weakness?: No Do you have any diarrhea?: No Are you experiencing any unusual bleeding?: No Do you have any muscle aches/pain?: No Do you have any abdominal pain?: No Are you experiencing loss of taste or smell?: No Other Medical History Have you received the Flu Vaccine for this season: No Have you received the Pneumonia Vaccine: No Review of Systems Review of Systems Review of systems (narrative): Negative *Cardiovascular Comments: Negative *Gastrointestinal Comments: Negative *Genitourinary Comments: Negative *Musculoskeletal Comments: Negative *Neurologic Comments: Negative Meds Home Medications and Allergies Home Medications ?Medication ?Instructions ?Recorded ?Confirmed ?Type aspirin 81 mg tablet,delayed 81 mg PO DAILY . 07/02/22 01/21/25 History release (Adult Low Dose Aspirin) omeprazole 40 mg capsule,delayed 40 mg PO DAILY GERD 05/12/23 01/21/25 History release iolobk-dvoyzbqr-hmzcvxq 1 cap PO TID SUPPLIMENT #90 caps 06/25/24 01/21/25 Rx 36,000-114,000-180,000 unit capsule,delay rel (Creon) cyanocobalamin (vitamin B-12) 1,000 mcg PO DAILY 10/02/24 01/21/25 History 1,000 mcg capsule lidocaine 5 % topical patch 1 patch topical DAILY PRN Pain 10/02/24 01/21/25 History (Lidoderm) linaclotide 290 mcg capsule 290 mcg PO DAILY #30 caps 10/02/24 01/21/25 Rx (Linzess) albuterol sulfate 90 mcg/actuation 2 inh inhalation QID PRN shortness 11/15/24 01/21/25 Rx aerosol inhaler of breath or wheezing 90 days #8.5 grams tramadol 50 mg tablet 50 mg PO HS #30 tabs 11/21/24 01/21/25 Rx budesonide-formoterol HFA 160 2 puff inhalation BID PRN copd 01/18/25 01/21/25 History mcg-4.5 mcg/actuation aerosol inhaler (Symbicort) fluticasone propionate 50 2 spray intranasal DAILY PRN 01/18/25 01/21/25 History mcg/actuation nasal ALLERGIES spray,suspension (Flonase Allergy Relief) pregabalin 50 mg capsule (Lyrica) 50 mg PO HS 01/18/25 01/21/25 History rosuvastatin 20 mg tablet (Crestor) 20 mg PO DAILY . 05/30/25 06/02/25 History New Prescriptions to Start Prescriptions: Allergies Allergy/AdvReac Type Severity Reaction Status Date / Time No Known Allergies Allergy Verified 01/21/25 06:46 Exam Data for Last 24 hours Vital signs and Labs for Last 24 Hours: Temp Pulse Resp BP Pulse Ox O2 Del Method 97.0 F L 57 L 18 102/58 L 97 Room Air 01/21/25 06:47 01/21/25 06:47 01/21/25 06:47 01/21/25 06:47 01/21/25 06:47 01/21/25 06:47 I & O for Last 24 hours: Intake & Output 01/18/25 01/19/25 01/20/25 01/21/25 23:59 23:59 23:59 23:59 Weight 170 lb *Routine HEENT Exam Head: Present normocephalic Eye: Present EOMI and PERRL ENT: Present mucous membranes moist *Routine Neck Exam Neck: Present supple *Routine Respiratory Exam Respiratory: Present CTA bilaterally *Routine Cardiovascular Exam Cardiovascular: Present RRR *Routine Abdominal Exam Abdominal: Present soft and normoactive bowel sounds; Absent tenderness *Routine Rectal Exam Rectal:: deferred *Routine Genitalia Exam Genitalia:: deferred *Routine Extremities Exam Extremities: Absent cyanosis, clubbing or edema *Routine Skin Exam Skin: Present warm; Absent rash *Routine Neurological Exam Neurological: Present alert and oriented X3 Assessment and Plan *Assessment and plan (1) Throat clearing: Status: Acute Category: Medical Code(s): R09.89 - Other specified symptoms and signs involving the circulatory and respiratory systems (2) Throat irritation: Status: Acute Category: Medical Code(s): J39.2 - Other diseases of pharynx (3) Bloating: Status: Acute Category: Medical Code(s): R14.0 - Abdominal distension (gaseous) (4) Early satiety: Status: Acute Category: Medical Code(s): R68.81 - Early satiety (5) Dysphagia: Status: Acute Qualifiers: Dysphagia type: unspecified Qualified Code(s): R13.10 - Dysphagia, unspecified Category: Medical Code(s): R13.10 - Dysphagia, unspecified Plan A/P: 1. Frequent throat clearing, dysphagia, globus sensation with bloating, belching and early satiety is the preprocedural diagnosis. The patient will be anesthetized/sedated using MAC sedation. The patient has been seen and examined. Cardiac and lung assessment prior to the examination is stable. Proceed with planned diagnostic EGD.
--- NOTE | 2025-01-21 07:32 | P.PCN_ITS ---
[facility] Procedure Note Date: 01/21/25 Time: 07:39 Procedure Note:: Upper Endoscopy Procedure Report: Esophagogastroduodenoscopy with cold biopsies and TTS balloon dilation Endoscopost: Ang Garcia II, MD Referring Physician: HOA Davis Date of Procedure: January 21, 2025 Equipment: Olympus GIF 190 standard upper endoscope Sedation: MAC sedation Indications: Mrs. Adler is a 64-year-old female who is here for diagnostic upper endoscopy. She is a long-term patient who has follow-up with ne who has follow-up with me in [facility]. She does have a history of dyspepsia, bloating and IBS constipation. The patient had an EGD with ne in December 2022 and was having persistent globus sensation, hoarseness, frequent clearance of the throat and coughing. She also had some dysphagia. Her EGD showed cricopharyngeal spasm and nonerosive GERD with very short segment B arrett's esophagus. She had some linear reactive gastropathy. The patient did have a colonoscopy with ne in April 2022 and had 4 diminutive polyps (tubular adenoma x 1/mucosal prolapse polyps x 3) removed. Her prior colonoscopy in April 2017 revealed 5 polyps (tubular adenomas x 5) which were removed. The patient did improve with the fiber bowel regimen and is taking MiraLAX plus Citrucel daily. She still has hard stools, straining and some constipation and sometimes has to take this twice daily. Her chief complaint now is primarily the frequent throat clearance and fullness. She gets full very quickly after a meal. She has some bloating. The patient is on Creon with meals. She is also on omeprazole 40 mg daily. The patient has concerns about inability to lose weight. She is considered a GLP-1 agonist. She has tried phentermine but this causes her significant insomnia. Procedure: Prior to the procedure, a history and physical exam was performed, and patient's medications and allergies were reviewed. The risks, benefits and alternatives of the sedation and procedure were discussed with the patient. All questions were answered and informed consent was obtained. The patient was brought to the procedure room. Patient identification and proposed procedure were verified by the physician and the nurse. The patient was placed in a left lateral decubitus position and the scope was passed under direct vision. Throughout the procedure, the patient's blood pressure, pulse, and oxygen saturations were monitored continuously. The upper GI endoscopy was accomplished without difficulty. The patient tolerated the procedure well. Findings: The scope was passed directly into the upper esophagus and advanced to the third portion of the fourth portion of duodenum and proximal jejunum. Cold biopsies were taken x 4 of the proximal jejunum for disaccharidase assay. The proximal jejunum, post bulbar duodenum and duodenal bulb were normal with normal mucosa and conniventes. The scope was withdrawn through a normal duodenal bulb and pylorus into the stomach. There was very minimal antral reactive gastropathy. The body and fundus of the stomach were grossly normal. Upon retroflexion there was no hiatal hernia. The scope was then withdrawn into the esophagus. There were 1 or 2 very short tongues of salmon-colored mucosa that would not meet criteria for Mendoza's (less than 1 cm) and cold biopsies were obtained from the GE junction to rule out intestinal metaplasia. There was no evidence of reflux esophagitis, corrugation, strictures, rings, webs or furrowing. There were strong tertiary contractions and evidence of moderate esophageal dysmotility. The entire esophagus was dilated to 60 Polish/20 mm with a TTS hydrostatic balloon. There was some resistance at the cricopharyngeus. The remainder of the esophageal mucosa was normal. Impression: 1. Cricopharyngeal spasm status post dilation to 20 mm 2. Nonerosive GERD with moderate esophageal dysmotility 3. Minimal antral gastropathy Plan: I will follow-up the biopsies. The patient should have clinical improvement with dilation. I would recommend OTC Iberogast twice daily. I would also consider diaphragmatic breathing. We may consider prucalopride or low FODMAP diet. I will check disaccharidase assay.
[2025-01-21 07:45] VITALS: BP 115/81; PULSE 93; RESP 16; TEMP 36.1; O2SAT 94
[2025-01-21 07:55] VITALS: BP 105/88; PULSE 97; RESP 16; O2SAT 96
[2025-01-21 08:05] VITALS: BP 109/56; PULSE 70; RESP 18; O2SAT 96
[2025-01-21 08:15] VITALS: BP 95/53; PULSE 62; RESP 18; O2SAT 96
[2025-01-24 16:12] LABS: Disclaimer Notes (.); Interpretation Notes (.); Lactase 32.97 (>/= 14.0); Maltase 239.63 (>/= 110.0); Palatinase 14.54 (>/= 8.5); Reference Notes (.); Sucrase 57.75 (>/= 25.0)
== END 2025-01-21 08:30 | disposition home or self-care (01) ==
PROVIDERS: PCP Nurse Practitioner Family; Visit Provider Internal Medicine Gastroenterology
PROC: 0DJ08ZZ Inspection of Upper Intestinal Tract, Via Natural or Artificial Opening Endoscopic (ICD-10-PCS; CPT 43239; principal; 2025-01-21 07:30)
DX: K29.50 Unspecified chronic gastritis without bleeding (principal); J39.2 Other diseases of pharynx; K21.9 Gastro-esophageal reflux disease without esophagitis; K22.4 Dyskinesia of esophagus; K31.9 Disease of stomach and duodenum, unspecified; R13.10 Dysphagia, unspecified; R14.0 Abdominal distension (gaseous); R09.89 Other specified symptoms and signs involving the circulatory and respiratory systems; R14.2 Eructation; R68.81 Early satiety; J43.9 Emphysema, unspecified; J44.89 Other specified chronic obstructive pulmonary disease; Z87.891 Personal history of nicotine dependence; Z79.899 Other long term (current) drug therapy; Z79.51 Long term (current) use of inhaled steroids; Z79.82 Long term (current) use of aspirin; Z80.9 Family history of malignant neoplasm, unspecified
CPT/HCPCS: 43239; 43249; 82657; C1726; J7120

== ENCOUNTER 2025-02-04 09:40 | Outpatient (POV) | payer BC, SELFPAY ==
--- OUTSIDE RECORDS SUMMARY | 2025-02-04 09:47 | XMS_ITS | Clinical Summary ---
Author Organization Healthcare Address [address] [place] [address] Care Team Providers Care Coach Cleaner Name Role Phone Tuan Spivey MD Primary Care Provider [phone] Family History Medical History Relation Name Comments Coronary artery disease Other 1 Hypertension Other 2 Other cancer Other 3 Relation Name Status Comments Other 1 Other 2 Other 3 Social History Tobacco Use Types Packs/Day Years Used Date Smoking Tobacco: Every Day Comments:Smoking for 30+ yea rs Comments Unknown Sex and Gender Information Value Date Recorded Sex Assigned at Not on file Legal Sex Female 7:58 PM EDT Gender Identity Not on file Sexual Orientation Not on file Last Filed Vital Signs Vital Sign Reading Time Taken Comments Blood Pressure - - Pulse - - Temperature - - Respiratory Rate - - Oxygen Saturation - - Inhaled Oxygen Concentration - - Weight 67.1 kg (147 lb 15.9 oz) 03/08/2017 9:09 AM EDT Height 160 cm (5' 3 ) 03/08/2017 9:09 AM EDT Body Mass Index 26.22 03/08/2017 9:09 AM EDT Plan of Treatment Health Maintenance Due Date Last Done Comments [facility]-Depression Screening 1960 [facility]-Infant/Child/Adol SDOH Screenings 1960 [facility]- SDOH Screenings 1979 [facility]-Adult SDOH Screenings 1979 [facility]-DTaP,Tdap,and Td Vaccines (1 - Tdap) 1980 [facility]-Pap Smear 1982 [facility]-Cervical Cancer Screening 1991 [facility]-HPV/Cotest 1991 CT Colonography 2006 Colonoscopy 2006 FIT-DNA 2006 FIT 2006 FOBT 2006 Sigmoidoscopy 2006 [facility]-Colorectal Cancer Screening 2006 [facility]-Pneumococcal Vaccine: 50+ Years (1 of 1 - PCV) 2011 [facility]-Zoster Vaccines (1 of 2) 2011 [id number] Vaccine ( - season) 2024 08/06/2021, 12/17/2020, 11/19/2020 [facility]-Influenza Vaccine (Season Ended) 2025 [facility]-RSV Vaccine: 60+ Years or (1 - 1-dose 75+ series) 2036 [facility]-Breast Cancer Screening Discontinued 02/2022, 10/26/2021, 07/24/2020, Additional history exists HPV Vaccines Aged Out No longer eligi ble based on patient's age to complete this topic [facility]-HIB Vaccines Aged Out No longer e ligible based on patient's age to complete this topic [facility]-Hepatitis A Vaccines Aged Out No longer eligible based on patient's age to complete this topic [facility]-IPV Vaccines Aged Out No longer e ligible based on patient's age to complete this topic [facility]-Rotavirus Vaccines Aged Out No lo nger eligible based on patient's age to complete this topic Care Teams Coach Cleaner Relationship Specialty Start Date End Date Tuan Spivey MD [address] [place] [address] [address] [place] [id number] PCP - General 01/02/21
--- OUTSIDE RECORDS SUMMARY | 2025-02-04 09:47 | XMS_ITS | Data Portability ---
Author Organization PATR[facility]el [facility] Address [address] [facility] [address] [place] [address] Care Team Providers Care Slate Trimmer Name Role Phone JORDON BLANK Primary Care Provider Assessment No assessment recorded. Plan of Treatment Reminders Order Date Submit Date Provider Last Modified By Organization Details Last Modified Time Details Appointments None recorded. Lab None recorded. Referral None recorded. Procedures None recorded. Surgeries None recorded. Imaging None recorded. Medication Orders Pep[facility]id 40 mg tablet 2022 023 [id number], [address] [address] [place], [id number], 3 11:18:17 omeprazole 40 mg capsule,del ayed release 2022 023 [facility] #[id number], [address] [address] [place], [id number], 3 11:18:17 Pepcid 40 mg tablet 2021 022 [facility] #[id number], [address] [address] [place], [id number], 2 12:56:44 Pepcid 40 mg tablet 2021 022 [facility] #[id number], [address] [address] [place], [id number], 12:11:58 Patient TargetsNo targets recorded. Patient InstructionsNo instructions recorded. Reason for Referral None Reported. Results Created Date Observation Date Name Description Value Unit Range Abnormal Flag Note LastModifiedBy Organization Detail LastModifiedTime 11/03/19 23 11/02/2022 CT, maxil lofac ial, w/o contr ast [address] [address] Patisy pugh Name: SHANNON pugh : 1959 [...] Cortez newsome MD on 023 12:13 PM [email or web address] [facility] [address] [place], [address], 11/02/2022 15:10:59 Result Notes Documentation Provider Name and Address Organization Details Recorded Time Ct, Maxillofacial, W/o Contrast : [facility] [address] [place] [address] Patient Name: SHANNON REY Patient : 1960 Patient Ordering Provider: HERMAN LEMUS EXAM DATE: 11/02/2022 EXAM: CT IMAGE GUIDED SINUS SCAN WO CONTRAST HISTORY: 62-year-old female with dysphonia and nasal congestion. COMPARISON: None. TECHNIQUE: 1.0 mm axial direct images were obtained, and axial, coronal, and sagittal reconstruction images were generated from the source images. FINDINGS: Maxillary sinuses: There is no mucosal thickening in the maxillary sinuses. Ostia: The left and right osteomeatal units, and frontal and sphenoid sinus ostia are patent. Ethmoid sinuses: The ethmoid sinuses are clear. Frontal sinuses: The frontal sinuses are clear. Sphenoid sinuses: The sphenoid sinuses appear clear. Nasal septum and nasal passages: The nasal septum is midline. There is no mucosal hypertrophy of the nasal turbinates. The visualized brain parenchyma appears normal. The orbits are normal in appearance. No parapharyngeal mass is identified. The visualized mastoid air cells appear normal. IMPRESSION: 1. The paranasal sinuses are clear. Interpreted By: Shady Crowder MD Rafael Menard [facility] 11/02/2022 15:10:59 Problems Name Problem SNOMED Code Status Onset Date Resolution Date Notes Provider Name and Address Organization Details Recorded Time Chronic obstructive pulmonary disease 86225352 [facility] 08:18:10 Mendoza's esophagus 241692755 Active 2021 [facility] [place] 2 08:21:51 Problem Notes None recorded. Procedures Surgical History Date Name Laterality Status Provider Name and Address Organization Details Recorded Time 11/03/19 23 Nasolaryngoscopy completed HERMAN LEMUS MD [address] [place] [address], [phone], [facility] 11/02/2022 10:53:29 09/20/19 23 Nasolaryngoscopy completed HERMAN LEMUS MD [facility] [place], [address], [facility] 09/20/2022 11:31:01 06/22/20 22 Nasolaryngoscopy completed HERMAN LEMUS MD [address] [place] [address], [phone], [facility] 06/22/2022 12:11:14 Back Surgery completed [facility] 06/22/2022 08:19:58 section completed [facility] 06/22/2022 08:20:15 Imaging Results None recorded. Procedure Notes None recorded. Medical Equipment None Reported. Allergies Allergen ID Allergen Name Allergen Category Reaction Reaction Severity Criticality Documentation Date Start Date Code Code System Note Provider Name and Address Organization Details Recorded Time 506365 codeine medicatio n Not available Not available Not available 07/16/20162010 2670 RxNorm Comme nt: Creat ed By: Aryan Kim eated Date: 2010 2:55: 53 PM; Not Available [facility] 6 05:50:00 Medications Name Sig Start [...] Available No t Available Vitals Date Recorded Heart rate Systolic blood pressure Diastolic blood pressure Provider Name and Address Organization Details Last Updated DateTime 09/20/2022 65 /min 139 mm[Hg] 93 mm[Hg] [facility] 09/20/2022 10:22:31 Date Recorded Body height Body mass index (BMI) Body weight Provider Name and Address Organization Details Last Updated DateTime 09/20/2022 160.02 cm 29.2 kg/m2 59950.[address] [facility] 09/20/2022 10:07:20 Date Recorded Body height Body mass index (BMI) Body weight Heart rate Systolic blood pressure Diastolic blood pressure Provider Name and Address Organization Details Last Updated DateTime 3 160.02 cm 28.2 kg/m2 83192.1 9 g 77 /min 141 mm[Hg] 96 mm[Hg] [facility] 3 10:25:48 Date Recorded Body height Body mass index (BMI) Body weight Systolic blood pressure Diastolic blood pressure Provider Name and Address Organization Details Last Updated DateTime 06/22/2022 160.02 cm 29.4 kg/m2 41772.33 g 146 mm[Hg] 80 mm[Hg] [facility] 2 08:15:55 Date Recorded Body height Body mass index (BMI) Body weight Heart rate Systolic blood pressure Diastolic blood pressure Provider Name and Address Organization Details Last Updated DateTime 2 160.02 cm 29.2 kg/m2 36378.7 4 g 80 /min 153 mm[Hg] 99 mm[Hg] Westley Hilliard [facility] 10:36:48 Social History Question Answer Notes LastModified by Organizat ion Details LastModified Time Tobacco Smoking Status Former Smoker Jen pimentel [facility] 06/22/2022 08:19:16 When Did You Quit Smoking? 6-10yearssi ncelastciga rette Jul 21 2015 Information not available 06/22/2022 At What Age Did You Start Smoking Tobacco? 17 Information not available 06/22/2022 Has Tobacco Cessation Counseling Been Provided? No Information not available 06/22/2022 How Many Years Have You Smoked Tobacco? 7 Information not available 06/22/2022 Have You Recently Traveled Abroad? No Information not available 06/22/2022 Sex: Unknown Functional Status Question Answer Note LastModified by Organizat ion Details LastModified Time Do you use any illicit or recreational drugs? No Information not available 06/22/2022 What is your level of alcohol consumption? Occasional Information not available 06/22/2022 Mental Status None recorded. Family History Relationship [...] SNOMED-CT Code Diagnosis ICD10 Code Diagnosis Note [id number] HERMAN LEMUS MD [facility] [address] [place] [address] 06/22/2022 08:00:47 06/22/2022 12:23:28 Chronic hoarseness 1186161823 105 R49.0 Has a history of Mendoza's esophagus. Nasolaryng oscopy performed, no abnormalit ies other than edema and inflammati on of the larynx secondary to reflux. Currently on omeprazole . Will add Pepcid to take at bedtime and recommend adding sodium alginate. F/u 6wks Dysphagia 26696160 R13.1 0 Gastroesop hageal reflux disease without esophagitis 423237875 K21.9 History of Mendoza's esophagus 2868204084 6975676 Z87.19 [id number] HERMAN LEMUS MD [facility] [address] [place] [address] 08/03/2022 09:32:56 08/03/2022 13:03:22 Chronic hoarseness 3364520544 105 R49.0 Secondary to GERD. Improving w/ adding Pepcid, sodium alginate. Continue. Refill Pepcid. F/u 6wks Dysphagia 11968226 R13.1 0 Gastroesop hageal reflux disease without esophagitis 237978189 K21.9 History of Mendoza's esophagus 8993026231 6293434 Z87.19 [id number] HERMAN LEMUS MD [facility] [address] [place] [address] 1 09/20/2022 09:33:57 09/20/2022 11:47:16 Chronic hoarseness 1761701133 105 R49.0 Secondary to GERD. Improving w/ adding Pepcid to omeprazole , sodium alginate but recently had a flare-up. Nasolaryng oscopy repeated because of the worsening, only abnormalit y is mild edema of the vocal folds, no nodules or polyps. Could try voice therapy. We will set that up. Continue reflux therapy. F/u 6wks Dysphagia 41705036 R13.1 0 Gastroesop hageal reflux disease without esophagitis 570052259 K21.9 History of Mendoza's esophagus 5266415737 6179851 Z87.19 [id number] HERMAN LEMUS MD [facility] [address] [place] [address] 1 11/02/2022 09:29:30 11/02/2022 11:15:10 Chronic hoarseness 1557209787 105 R49.0 Secondary to GERD. Was improving [...] afterward Gastroesop hageal reflux disease without esophagitis 228687159 K21.9 History of Mendoza's esophagus 7656131650 2655720 Z87.19 Health Concerns Section Related Observation LastModified by Organization Detai ls LastModified Time None Recorded Concern Status LastModified by Organization Details LastModified Time None Recorded Advance Directives Directive None Recorded Payers Insurance Date Sequence Insurance Name Policy Number Policy Vu Covered Member ID Vu Member ID Guarantor Name 11/09/2022 1 [place] [employer] [place] [employer] 104 Shannon Rey [id number] Shannon Rey Notes Date Note Type Note Provider Name [...] tonsil 1.5mo ago HERMAN LEMUS MD [address] [place] [address], [phone], [facility] 06/22/2022 12:11:56 08/03/2022 text/html Chief Complaint: Chronic hoarsenessTiming:Durati on:Location:Severity: improvingQuality:Contex t: Hx of Mendoza's esophagusModifying Factors: omeprazole, Pepcid, sodium alginate - symptoms are improvingAssoc Signs and Symptoms: occasional throat clearing - improving, hoarseness has improved, fb sensation, dysphagia--foods not getting stuck, dry throat, coughing, has some PND, no hemoptysis, still has some heartburn HERMAN LEMUS MD [address] [place], [address], [facility] 08/03/2022 12:56:41 09/20/2022 text/html Chief Complaint: Chronic [...] mucous, nasal congestion HERMAN LEMUS MD [address] [place] [address], [phone], [facility] 09/20/2022 11:31:41 11/02/2022 text/html Chief Complaint: Chronic [...] throat, nasal obstruction HERMAN LEMUS MD [address] [place] [address], [phone], [facility] 11/02/2022 10:54:05 OBGyn Episode No OBEpisode recorded.
--- NOTE | 2025-02-04 09:51 | EXP.PAIN.SOA ---
[facility] Disclaimer: The information contained in this section may have been updated after the patient was seen, as this information can be updated by other users. Medical History Rash of mouth present on examination Throat irritation Pharyngitis Patient states she has taken azithromycin and Medrol with current medications without complications or reactions GERD (gastroesophageal reflux disease) Vocal cord edema Hoarseness Thyroid Nodule COPD (chronic obstructive pulmonary disease) Allergic rhinitis, unspecified Mild persistent asthma Pulmonary emphysema Nocturnal hypoxemia Stopped smoking with greater than 30 pack year history Dyspnea on exertion History of sleep apnea Surgical History H/O toe surgery History of eye surgery eyelid repair; bilateral Previous back surgery History of section History of colonoscopy Family History Other Cancer Diabetes Hypertension Social History Smoking Status: Former smoker tobacco type: cigarettes packs per day: 1 alcohol intake: current alcohol intake frequency: holidays/special occasions only substance use type: denies use current occupational status: retired Travel in the last 8 weeks?: None household members: none housing: house number of children: 1 PM Subjective & Objective Subjective Subjective:: Patient is a pleasant 64-year-old female who presents today for follow-up of right intra-articular knee injection on 01/15/2025. Today she does rated her pain a 1 out of 10. Patient denies any new trauma or injury. Patient does state it did help some. She denies any side effects from it. She states she is still having quite a bit of swelling to that right knee. Patient does also make mention that she has still the pain there on the lateral side that they have discussed the possibility of a Yadav's cyst is aggravating that pain. Patient states that just does not seem to be getting better and nothing has really seem to help it. Patient does states she thinks that in future she will definitely have to see about a total knee replacement. Patient is currently managed with as needed tramadol 50 mg at bedtime, meloxicam 15 mg daily and pregabalin 50 mg at bedtime. She denies any side effects. Her Nigel has been reviewed and is appropriate. She has also prescribed compounded cream. Review of Systems: General: No recent weight changes, no fever, no sleep disturbances Respiratory: No cough, no shortness of air, no recurring pulmonary infections Cardiovascular/peripheral vascular: No chest pain, no palpitations, no edema, no shortness of breath Gastrointestinal: No new onset incontinence, normal bowel movements reported Genitourinary: No new onset incontinence Musculoskeletal: Right knee pain Psychiatric: [Normal mood/affect] Neurological: [Denies weakness in extremities], [denies balance issues] Pain at rest (0-10 scale): 1 Objective Objective:: Physical Exam: General: Alert and oriented x3, no acute distress, pleasant and cooperative Lungs: Respirations even and unlabored, symmetrical chest expansion Eyes: PERRL Musculoskeletal: Flexion and extension of right knee somewhat guarded secondary to pain, [antalgic gait noted] Neurological: Speech clear, no gross sensory deficit Has patient had previous pain injection?: Yes Percent improvement in pain since last injection: 20 to 30% Conservative treatment options previously tried: Home exercise plan Length of treatment: Longer than 12 weeks Meds Home Medications and Allergies Home Medications ?Medication ?Instructions ?Recorded ?Confirmed ?Type aspirin 81 mg tablet,delayed 81 mg PO DAILY . 07/02/22 01/22/25 History release (Adult Low Dose Aspirin) omeprazole 40 mg capsule,delayed 40 mg PO DAILY GERD 05/12/23 01/22/25 History release cyanocobalamin (vitamin B-12) 1,000 mcg PO DAILY 10/02/24 01/22/25 History 1,000 mcg capsule lidocaine 5 % topical patch 1 patch topical DAILY PRN Pain 10/02/24 01/22/25 History (Lidoderm) linaclotide 290 mcg capsule 290 mcg PO DAILY #30 caps 10/02/24 01/22/25 Rx (Linzess) albuterol sulfate 90 mcg/actuation 2 inh inhalation QID PRN shortness 11/15/24 01/22/25 Rx aerosol inhaler of breath or wheezing 90 days #8.5 grams tramadol 50 mg tablet 50 mg PO HS #30 tabs 11/21/24 01/22/25 Rx budesonide-formoterol HFA 160 2 puff inhalation BID PRN copd 01/18/25 01/22/25 History mcg-4.5 mcg/actuation aerosol inhaler (Symbicort) fluticasone propionate 50 2 spray intranasal DAILY PRN 01/18/25 01/22/25 History mcg/actuation nasal ALLERGIES spray,suspension (Flonase Allergy Relief) pregabalin 50 mg capsule (Lyrica) 50 mg PO HS 01/18/25 01/22/25 History rosuvastatin 20 mg tablet (Crestor) 20 mg PO DAILY . 01/18/25 01/22/25 History budesonide-formoterol HFA 160 2 puff inhalation BID 90 days 01/23/25 Rx mcg-4.5 mcg/actuation aerosol #10.2 grams inhaler lywjeu-fvhluzdo-pwdxesf 1 cap PO TID #300 caps 01/30/25 Rx 36,000-114,000-180,000 unit capsule,delay rel (Creon) New Prescriptions to Start Prescriptions: Allergies Allergy/AdvReac Type Severity Reaction Status Date / Time No Known Allergies Allergy Verified 01/22/25 09:47 Assessment and Plan *Assessment and plan (1) Left foot pain: Status: Acute Category: Medical Code(s): M79.672 - Pain in left foot (2) Degenerative disc disease, lumbar: Status: Acute Category: Medical Code(s): M51.369 - Other intervertebral disc degeneration, lumbar region without mention of lumbar back pain or lower extremity pain (3) Lumbar radiculopathy: Status: Acute Category: Medical Code(s): M54.16 - Radiculopathy, lumbar region (4) Chronic pain of right knee: Status: Acute Category: Medical Code(s): M25.561 - Pain in right knee; G89.29 - Other chronic pain Plan I did discuss with the patient that I will plan on referring her to [facility] for evaluation and possible replacement. Patient did have significant swelling on her knee today. I will put in a new order for x-ray imaging with an MRI without contrast to follow low. We will try and get this imaging done in order to send the referral to orthopedics. I did discuss with her in future she may benefit from a infrapatellar nerve block. I will make sure she does have refills on the tramadol, meloxicam and pregabalin and see her back in 1 month. Patient agrees with this plan of care. Risks and benefits of the medication have been explained in detail to the patient. The patient does understand the risk of dependence on the medication when given over a prolonged period. Patient has been advised of risks of oversedation with the prescribed medication. Narcan has been offered to the paitent in the event of oversedation. Patient has been advised that a family member should also be educated regarding administration of Narcan. The patient has been advised to consult with his/her primary care provider and pharmacist regarding drug-drug interaction of medications currently prescribed. Patient has been prescribed a controlled substance after being counseled on the medication, medication safety, and possible side effects. Opioid contract was reviewed and signed by the patient, and that they have agreed to all of the terms set forth by our compliance program. A UDS is needed to verify patient's compliance with our office pain contract. This is ordered based off specific treatments related to chronic pain with the potential to abuse certain medications. Patient has been instructed to contact the clinic with any concerns before the next appointment. Dr. Paniagua has reviewed this note and agrees with this plan of care. This note was dictated using voice recognition software and make contain errors or omissions.
[2025-02-04 11:35] VITALS: BP 117/71; PULSE 58; RESP 18; O2SAT 96; BMI 28.7
--- NOTE | 2025-02-07 16:01 | PC.NURSE ---
Contacted pt via phone per provider shirin guzmán request r/t MRI result and POC. Notified pt that she has a tear in her meniscus, shirin guzmán will be sending a referral to Dr. Seth office for pt. Pt verbalized understanding and was agreeable to POC with referral.
== END 2025-02-04 23:59 | disposition home or self-care (01) ==
PROVIDERS: PCP Nurse Practitioner Family; Visit Provider Nurse Practitioner Family
DX: M51.16 Intervertebral disc disorders with radiculopathy, lumbar region (principal); M79.672 Pain in left foot; G89.29 Other chronic pain; Z79.891 Long term (current) use of opiate analgesic; Z79.899 Other long term (current) drug therapy
CPT/HCPCS: 99212; G0463

== ENCOUNTER 2025-02-05 11:33 | Outpatient (CLI) | payer BC, SELFPAY ==
--- NOTE | 2025-02-05 11:36 | XR_ITS ---
FINAL REPORT CLINICAL HISTORY: Right knee pain COMPARISON: None FINDINGS: RIGHT KNEE 3 views of the right knee were obtained. There is no acute fracture or dislocation. There is moderate narrowing of the medial compartment of the knee. Small osteophytes are noted at the medial margin and projecting from the posterior aspect of the patella. A small joint effusion is present. There is sharpening of the tibial spines. IMPRESSION: Degenerative change without acute bony abnormality. Reviewed, Interpreted and Dictated by Khadar Sellers MD Transcribed by Lay Varma Authenticated and . [facility]
--- OUTSIDE RECORDS SUMMARY | 2025-02-05 11:36 | XMS_ITS | Data Portability ---
Author Organization PATRICA Martel PECK CLOSED Address [address] [facility] [address] [place] [address] Care Team Providers Care Herd Tester Name Role Phone JORDON BLANK Primary Care Provider Assessment No assessment recorded. Plan of Treatment Reminders Order Date Submit Date Provider Last Modified By Organization Details Last Modified Time Details Appointments None recorded. Lab None recorded. Referral None recorded. Procedures None recorded. Surgeries None recorded. Imaging None recorded. Medication Orders Pepcid 40 mg tablet 2022 023 [facility]36261, [address] [address] [place], [id number], 3 11:18:17 omeprazole 40 mg capsule,del ayed release 2022 023 [facility] #08708, [address] [address] [place], [id number], 3 11:18:17 Pepcid 40 mg tablet 2021 022 [facility] #73190, [address] [address] [place], [id number], 2 12:56:44 Pepcid 40 mg tablet 2021 022 MANILA [facility] #26840, [address] [address] [place], [id number], 12:11:58 Patient TargetsNo targets recorded. Patient InstructionsNo instructions recorded. Reason for Referral None Reported. Results Created Date Observation Date Name Description Value Unit Range Abnormal Flag Note LastModifiedBy Organization Detail LastModifiedTime 11/03/19 23 11/02/2022 CT, maxil lofac ial, w/o contr ast [address] [address] Patisy pugh Name: SHANNON pugh : 1959 [...] Cortez newsome MD on 023 12:13 PM [id number] [facility] Radiology [facility] [address] [place], [address], 11/02/2022 15:10:59 Result Notes Documentation Provider Name and Address Organization Details Recorded Time Ct, Maxillofacial, W/o Contrast : [facility] [address] [place] [address] Patient Name: SHANNON REY Patient : 1960 [...] Interpreted By: Shady Crowder MD Rafael Menard [facility] 11/02/2022 15:10:59 Problems Name Problem SNOMED Code Status Onset Date Resolution Date Notes Provider Name and Address Organization Details Recorded Time Chronic obstructive pulmonary disease 53920573 [facility] 2 08:18:10 Mendoza's esophagus 586332296 Active 2021 [facility] 2 08:21:51 Problem Notes None recorded. Procedures Surgical History Date Name Laterality Status Provider Name and Address Organization Details Recorded Time 11/03/19 23 Nasolaryngoscopy completed HERMAN LEMUS MD [address] [place] [address], [address], [facility] 11/02/2022 10:53:29 09/20/19 23 Nasolaryngoscopy completed HERMAN LEMUS MD [facility] [place], [address], [facility] 09/20/2022 11:31:01 06/22/20 22 Nasolaryngoscopy completed HERMAN LEMUS MD [address] [place] [address], [address], [facility] 06/22/2022 12:11:14 Back Surgery completed [facility] 06/22/2022 08:19:58 section completed [facility] 06/22/2022 08:20:15 Imaging Results None recorded. Procedure Notes None recorded. Medical Equipment None Reported. Allergies Allergen ID Allergen Name Allergen Category Reaction Reaction Severity Criticality Documentation Date Start Date Code Code System Note Provider Name and Address Organization Details Recorded Time 810620 codeine medicatio n Not available Not available Not available 07/16/20162010 2670 RxNorm Comme nt: Creat ed By: Aryan Kim eated Date: 2010 2:55: 53 PM; Not Available [facility] 6 05:50:00 Medications Name Sig Start Date [...] 09/20/2022 65 /min 139 mm[Hg] 93 mm[Hg] [facility] 09/20/2022 10:22:31 Date Recorded Body height Body mass index (BMI) Body weight Provider Name and Address Organization Details Last Updated DateTime 09/20/2022 160.02 cm 29.2 kg/m2 01373.74 g [facility] 09/20/2022 10:07:20 Date Recorded Body height Body mass index (BMI) Body weight Heart rate Systolic blood pressure Diastolic blood pressure Provider Name and Address Organization Details Last Updated DateTime 3 160.02 cm 28.2 kg/m2 99875.1 9 g 77 /min 141 mm[Hg] 96 mm[Hg] [facility] 3 10:25:48 Date Recorded Body height Body mass index (BMI) Body weight Systolic blood pressure Diastolic blood pressure Provider Name and Address Organization Details Last Updated DateTime 06/22/2022 160.02 cm 29.4 kg/m2 87946.33 g 146 mm[Hg] 80 mm[Hg] [facility] 2 08:15:55 Date Recorded Body height Body mass index (BMI) Body weight Heart rate Systolic blood pressure Diastolic blood pressure Provider Name and Address Organization Details Last Updated DateTime 2 160.02 cm 29.2 kg/m2 94993.7 4 g 80 /min 153 mm[Hg] 99 mm[Hg] [facility] H[facility] 10:36:48 Social History Question Answer Notes LastModified by Organizat ion Details LastModified Time Tobacco Smoking Status Former Smoker Jen pimentel [facility] 06/22/2022 08:19:16 When Did You Quit Smoking? [...] SNOMED-CT Code Diagnosis ICD10 Code Diagnosis Note [id number] HERMAN LEMUS MD ENT [facility] [address] [place] [address] 06/22/2022 08:00:47 06/22/2022 12:23:28 Chronic hoarseness 9393289127 105 R49.0 Has a history of Mendoza's esophagus. Nasolaryng oscopy performed, no abnormalit ies other than edema and inflammati on of the larynx secondary to reflux. Currently on omeprazole . Will add Pepcid to take at bedtime and recommend adding sodium alginate. F/u 6wks Dysphagia 05321210 R13.1 0 Gastroesop hageal reflux disease without esophagitis 252684419 K21.9 History of Mendoza's esophagus 2310020455 0809735 Z87.19 [id number] HERMAN LEMUS MD ENT SB [address] [place] [address] 08/03/2022 09:32:56 08/03/2022 13:03:22 Chronic hoarseness 3803069228 105 R49.0 Secondary to GERD. Improving w/ adding Pepcid, sodium alginate. Continue. Refill Pepcid. F/u 6wks Dysphagia 96042913 R13.1 0 Gastroesop hageal reflux disease without esophagitis 759735019 K21.9 History of Mendoza's esophagus 2304207353 6458050 Z87.19 [id number] HERMAN LEMUS MD ENT SB [address] [place] [address] 1 09/20/2022 09:33:57 09/20/2022 11:47:16 Chronic hoarseness 3548465136 105 R49.0 Secondary to GERD. Improving w/ adding Pepcid to omeprazole , sodium alginate but recently had a flare-up. Nasolaryng oscopy repeated because of the worsening, only abnormalit y is mild edema of the vocal folds, no nodules or polyps. Could try voice therapy. We will set that up. Continue reflux therapy. F/u 6wks Dysphagia 35783223 R13.1 0 Gastroesop hageal reflux disease without esophagitis 945317686 K21.9 History of Mendoza's esophagus 9702389770 0930188 Z87.19 [id number] HERMAN LEMUS MD ENT SB [address] [place] [address] 1 11/02/2022 09:29:30 11/02/2022 11:15:10 Chronic hoarseness 5167754210 105 R49.0 Secondary to GERD. Was improving [...] afterward Gastroesop hageal reflux disease without esophagitis 414824679 K21.9 History of Mendoza's esophagus 9028208000 4986747 Z87.19 Health Concerns Section Related Observation LastModified by Organization Detai ls LastModified Time None Recorded Concern Status LastModified by Organization Details LastModified Time None Recorded Advance Directives Directive None Recorded Payers Insurance Date Sequence Insurance Name Policy Number Policy Vu Covered Member ID Vu Member ID Guarantor Name 11/09/2022 1 [place] - [email or web address]EE [employer] 104 Shannon Rey [id number] Shannon Rey Notes Date Note Type Note [...] on tonsil 1.5mo ago HERMAN LEMUS MD [address] [place] [address], [address], [facility] 06/22/2022 12:11:56 08/03/2022 text/html Chief Complaint: Chronic hoarsenessTiming:Durati on:Location:Severity: improvingQuality:Contex t: Hx of Mendoza's esophagusModifying Factors: omeprazole, Pepcid, sodium alginate - symptoms are improvingAssoc Signs and Symptoms: occasional throat clearing - improving, hoarseness has improved, fb sensation, dysphagia--foods not getting stuck, dry throat, coughing, has some PND, no hemoptysis, still has some heartburn HERMAN LEMUS MD [address] [place], [address], [facility] 08/03/2022 12:56:41 09/20/2022 text/html Chief Complaint: Chronic [...] heavy mucous, nasal congestion HERMAN LEMUS MD [address] [place] [address], [address], [facility] 09/20/2022 11:31:41 11/02/2022 text/html Chief Complaint: Chronic [...] sore throat, nasal obstruction HERMAN LEMUS MD [address] [place] [address], [address], [facility] 11/02/2022 10:54:05 OBGyn Episode No OBEpisode recorded.
--- OUTSIDE RECORDS SUMMARY | 2025-02-05 11:36 | XMS_ITS | Clinical Summary ---
Author Organization Healthcare Address [address] [place] [address] Care Team Providers Care Steam Engineer Name Role Phone Tuan Spivey MD Primary Care Provider [phone] Family History Medical History Relation Name Comments [...] 2011 UKY-Zoster Vaccines (1 of 2) 2011 [id number] Vaccine ( - season) 2024 08/06/2021, 12/17/2020, [...] age to complete this topic Care Teams Steam Engineer Relationship Specialty Start Date End Date Tuan Spivey MD [address] [place] [address] #1 #1 [place] [id number] PCP - General 01/02/21
== END 2025-02-05 23:59 | disposition home or self-care (01) ==
LOC: RAD 11:34
PROVIDERS: PCP Nurse Practitioner Family; Visit Provider Nurse Practitioner Family
DX: M17.11 Unilateral primary osteoarthritis, right knee (principal)
CPT/HCPCS: 73562

== ENCOUNTER 2025-02-07 09:07 | Outpatient (CLI) | payer BC, SELFPAY ==
--- NOTE | 2025-02-07 09:11 | MR_ITS ---
FINAL REPORT CLINICAL HISTORY: RT KNEE PAIN LATERAL SIDED KNEE PIAN INSTABILITY NO INJURY COMPARISON: None FINDINGS: Multi planar MR imaging was performed of the right knee. The anterior and posterior cruciate ligaments are intact. The quadriceps and patellar tendons are intact. There is a full-thickness tear of the posterior horn of the medial meniscus. The medial and lateral collateral ligaments appear intact. The medial and lateral retinacula appear intact. There is significant narrowing of the medial compartment joint space. There is loss of articular cartilage in the medial femoral condyle and medial tibial plateau. Osteophytes are noted of the medial joint margin. There are small osteochondral lesions along the articular surface of the medial femoral condyle and medial tibial plateau. Grade 1 chondromalacia is noted along the undersurface of the patella. There is a small joint effusion. A popliteal cyst is noted measuring 5.4 cm. IMPRESSION: Tear posterior horn medial meniscus with underlying osteochondral injury to the medial femoral condyle and medial tibial plateau. Popliteal cyst. Small joint effusion. Reviewed, Interpreted and Dictated by Khadar Sellers MD Transcribed by Kenia Watson Authenticated and [facility]
--- OUTSIDE RECORDS SUMMARY | 2025-02-07 09:11 | XMS_ITS | Clinical Summary ---
Author Organization Healthcare Address [address] [place] [address] Care Team Providers Care Press Washer Name Role Phone Tuan Spivey MD Primary Care Provider [phone] Family History Medical History Relation Name Comments [...] 2011 UKY-Zoster Vaccines (1 of 2) 2011 IMB-[id number]-23 Vaccine ( - season) 2024 08/06/2021, 12/17/2020, [...] age to complete this topic Care Teams Press Washer Relationship Specialty Start Date End Date Tuan Spivey MD [address] [place] [address] #1 #1 [place] [id number] PCP - General 01/02/21
--- OUTSIDE RECORDS SUMMARY | 2025-02-07 09:11 | XMS_ITS | Data Portability ---
Author Organization PATRICA Martel FINLEY CLOSED Address [address] [facility] [address] [place] [address] Care Team Providers Care Formation Fracturing Operator Name Role Phone JORDON BLANK Primary Care Provider Assessment No assessment recorded. Plan of Treatment Reminders Order Date Submit Date Provider Last Modified By Organization Details Last Modified Time Details Appointments None recorded. Lab None recorded. Referral None recorded. Procedures None recorded. Surgeries None recorded. Imaging None recorded. Medication Orders Pepcid 40 mg tablet 2022 023 [facility] #14011, [address] [address] [place], [id number], 3 11:18:17 omeprazole 40 mg capsule,del ayed release 2022 023 [facility] #83902, [address] [address] [place], [id number], 3 11:18:17 Pepcid 40 mg tablet 2021 022 [facility] #66658, [address] [address] [place], [id number], 2 12:56:44 Pepcid 40 mg tablet [address] [facility] #30446, [address] [address] [place], [id number], 12:11:58 Patient TargetsNo targets recorded. Patient InstructionsNo instructions recorded. Reason for Referral None Reported. Results Created Date Observation Date Name Description Value Unit Range Abnormal Flag Note LastModifiedBy Organization Detail LastModifiedTime 11/03/19 23 11/02/2022 CT, maxil lofac ial, w/o contr ast [address] [address] Patisy pugh Name: SHANNON pugh : 1959 [...] Cortez newsome MD on 023 12:13 PM [email or web address] [facility] Radiology [facility] [address] [place], [address], 11/02/2022 15:10:59 Result Notes Documentation Provider Name and Address Organization Details Recorded Time Ct, Maxillofacial, W/o Contrast : [facility] [address] [place] [address] Patient Name: SHANNON REY Patient : 1960 [...] Interpreted By: Shady Crowder MD Rafael Menard [facility] 11/02/2022 15:10:59 Problems Name Problem SNOMED Code Status Onset Date Resolution Date Notes Provider Name and Address Organization Details Recorded Time Chronic obstructive pulmonary disease 58506162 [facility] [address] [facility] 2 08:18:10 Mendoza's esophagus 107619883 Active 2021 [facility] 2 08:21:51 Problem Notes None recorded. Procedures Surgical History Date Name Laterality Status Provider Name and Address Organization Details Recorded Time 11/03/19 23 Nasolaryngoscopy completed HERMAN LEMUS MD [address] [place] [address], [address], [facility] 11/02/2022 10:53:29 09/20/19 23 Nasolaryngoscopy completed HERMAN LEMUS MD [facility] [place], [address], [facility] 09/20/2022 11:31:01 06/22/20 22 Nasolaryngoscopy completed HERMAN LEMUS MD [address] [place] [address], [address], [facility] 06/22/2022 12:11:14 Back Surgery completed [facility] 06/22/2022 08:19:58 section completed [facility] 06/22/2022 08:20:15 Imaging Results None recorded. Procedure Notes None recorded. Medical Equipment None Reported. Allergies Allergen ID Allergen Name Allergen Category Reaction Reaction Severity Criticality Documentation Date Start Date Code Code System Note Provider Name and Address Organization Details Recorded Time 091470 codeine medicatio n Not available Not available Not available 07/16/20162010 2670 RxNorm Comme nt: Creat ed By: Aryan Kim eated Date: 2010 2:55: 53 PM; Not Available [facility] 6 05:50:00 Medications Name Sig [...] 65 /min 139 mm[Hg] 93 mm[Hg] [facility] 09/20/2022 10:22:31 Date Recorded Body height Body mass index (BMI) Body weight Provider Name and Address Organization Details Last Updated DateTime 09/20/2022 160.02 cm 29.2 kg/m2 03754.74 g [facility] 09/20/2022 10:07:20 Date Recorded Body height Body mass index (BMI) Body weight Heart rate Systolic blood pressure Diastolic blood pressure Provider Name and Address Organization Details Last Updated DateTime 3 160.02 cm 28.2 kg/m2 24437.1 9 g 77 /min 141 mm[Hg] 96 mm[Hg] [facility] 3 10:25:48 Date Recorded Body height Body mass index (BMI) Body weight Systolic blood pressure Diastolic blood pressure Provider Name and Address Organization Details Last Updated DateTime 06/22/2022 160.02 cm 29.4 kg/m2 82395.33 g 146 mm[Hg] 80 mm[Hg] [facility] 2 08:15:55 Date Recorded Body height Body mass index (BMI) Body weight Heart rate Systolic blood pressure Diastolic blood pressure Provider Name and Address Organization Details Last Updated DateTime 2 160.02 cm 29.2 kg/m2 53296.7 4 g 80 /min 153 mm[Hg] 99 mm[Hg] [facility] 10:36:48 Social History Question Answer Notes LastModified by Organizat ion Details LastModified Time Tobacco Smoking Status Former Smoker Jen pimentel [facility] 06/22/2022 08:19:16 When Did You Quit [...] SNOMED-CT Code Diagnosis ICD10 Code Diagnosis Note [id number] HERMAN LEMUS MD ENT [address] [place] [address] 06/22/2022 08:00:47 06/22/2022 12:23:28 Chronic hoarseness 3248499002 105 R49.0 Has a history of Mendoza's esophagus. Nasolaryng oscopy performed, no abnormalit ies other than edema and inflammati on of the larynx secondary to reflux. Currently on omeprazole . Will add Pepcid to take at bedtime and recommend adding sodium alginate. F/u 6wks Dysphagia 83226434 R13.1 0 Gastroesop hageal reflux disease without esophagitis 099915662 K21.9 History of Mendoza's esophagus 5544708518 7305075 Z87.19 [id number] HERMAN LEMUS MD ENT SB [address] [place] [address] 08/03/2022 09:32:56 08/03/2022 13:03:22 Chronic hoarseness 1517836152 105 R49.0 Secondary to GERD. Improving w/ adding Pepcid, sodium alginate. Continue. Refill Pepcid. F/u 6wks Dysphagia 85035028 R13.1 0 Gastroesop hageal reflux disease without esophagitis 201067093 K21.9 History of Mendoza's esophagus 1152966162 1883617 Z87.19 [id number] HERMAN LEMUS MD ENT SB [address] [place] [address] 1 09/20/2022 09:33:57 09/20/2022 11:47:16 Chronic hoarseness 0667919916 105 R49.0 Secondary to GERD. Improving w/ adding Pepcid to omeprazole , sodium alginate but recently had a flare-up. Nasolaryng oscopy repeated because of the worsening, only abnormalit y is mild edema of the vocal folds, no nodules or polyps. Could try voice therapy. We will set that up. Continue reflux therapy. F/u 6wks Dysphagia 56085450 R13.1 0 Gastroesop hageal reflux disease without esophagitis 742254346 K21.9 History of Mendoza's esophagus 3217022608 5420242 Z87.19 [id number] HERMAN LEMUS MD ENT SB [address] [place] [address] 1 11/02/2022 09:29:30 11/02/2022 11:15:10 Chronic hoarseness 3777185743 105 R49.0 Secondary to GERD. Was improving [...] afterward Gastroesop hageal reflux disease without esophagitis 486493846 K21.9 History of Mendoza's esophagus 8348802849 0406254 Z87.19 Health Concerns Section Related Observation LastModified by Organization Detai ls LastModified Time None Recorded Concern Status LastModified by Organization Details LastModified Time None Recorded Advance Directives Directive None Recorded Payers Insurance Date Sequence Insurance Name Policy Number Policy Vu Covered Member ID Vu Member ID Guarantor Name 11/09/2022 1 [place] - [employer] EMPL[employer]EE [employer] 104 Shannon Rey [id number] Shannon Rey Notes Date Note Type Note [...] on tonsil 1.5mo ago HERMAN LEMUS MD [address] [place] [address], [address], [facility] 06/22/2022 12:11:56 08/03/2022 text/html Chief Complaint: Chronic hoarsenessTiming:Durati on:Location:Severity: improvingQuality:Contex t: Hx of Mendoza's esophagusModifying Factors: omeprazole, Pepcid, sodium alginate - symptoms are improvingAssoc Signs and Symptoms: occasional throat clearing - improving, hoarseness has improved, fb sensation, dysphagia--foods not getting stuck, dry throat, coughing, has some PND, no hemoptysis, still has some heartburn HERMAN LEMUS MD [address] [place], [address], [facility] 08/03/2022 12:56:41 09/20/2022 text/html Chief Complaint: Chronic [...] heavy mucous, nasal congestion HERMAN LEMUS MD [address] [place] [address], [address], [facility] 09/20/2022 11:31:41 11/02/2022 text/html Chief Complaint: Chronic [...] sore throat, nasal obstruction HERMAN LEMUS MD [address] [place] [address], [address], [facility] 11/02/2022 10:54:05 OBGyn Episode No OBEpisode recorded.
== END 2025-02-07 23:59 | disposition home or self-care (01) ==
LOC: RAD 09:09
PROVIDERS: PCP Nurse Practitioner Family; Visit Provider Nurse Practitioner Family
DX: S83.241A Other tear of medial meniscus, current injury, right knee, initial encounter (principal); M71.21 Synovial cyst of popliteal space [Baker], right knee; M94.8X0 Other specified disorders of cartilage, multiple sites
CPT/HCPCS: 73721

== ENCOUNTER 2025-02-17 15:30 | Emergency (ER) | payer BC, SELFPAY ==
[2025-02-17 15:38] VITALS: BP 153/91; PULSE 74; O2SAT 96
[2025-02-17 15:42] VITALS: BP 153/91; PULSE 74; RESP 20; TEMP 36.9; O2SAT 96; BMI 28.7
[2025-02-17] MEDS: cephALEXin 500MG CAPSULE 1000 MG PO (15:52)
[2025-02-17] MEDS: LIDOCAINE 1% 20ML MDV 20 ML IJ (15:52)
--- OUTSIDE RECORDS SUMMARY | 2025-02-17 15:52 | XMS_ITS | Clinical Summary ---
Author Organization Healthcare Address [address] [place] [address] Care Team Providers Care Forwarder Operator Name Role Phone Tuan Spivey MD Primary Care Provider [phone] Family History Medical History Relation Name Comments [...] 2011 UKY-Zoster Vaccines (1 of 2) 2011 EWE-BAUAG-23 Vaccine ( - season) 2024 08/06/2021, 12/17/2020, [...] age to complete this topic Care Teams Forwarder Operator Relationship Specialty Start Date End Date Tuan Spivey MD [address] [place] [address] #1 #1 [place] [address] PCP - General 01/02/21
--- OUTSIDE RECORDS SUMMARY | 2025-02-17 15:52 | XMS_ITS | Data Portability ---
Author Organization PATRICA Martel BAILEY CLOSED Address [address] [facility] [address] [place] [address] Care Team Providers Care Manager Care Management Name Role Phone JORDON BLANK Primary Care Provider Assessment No assessment recorded. Plan of Treatment Reminders Order Date Submit Date Provider Last Modified By Organization Details Last Modified Time Details Appointments None recorded. Lab None recorded. Referral None recorded. Procedures None recorded. Surgeries None recorded. Imaging None recorded. Medication Orders Pepcid 40 mg tablet 2022 023 [place] [address] [facility][id number], [address] [place], [place], [id number], 3 11:18:17 omeprazole 40 mg capsule,del ayed release 2022 023 [place] [address] [id number], [address] [place], [place], [id number], 3 11:18:17 Pepcid 40 mg tablet 2021 022 [place] [facility] #[id number], [address] [place], [place], [id number], 2 12:56:44 Pepcid 40 mg tablet 2021 022 [place] [facility] #[id number], [address] [place], [id number], 2 12:11:58 Patient TargetsNo targets recorded. Patient InstructionsNo instructions recorded. Reason for Referral None Reported. Results Created Date Observation Date Name Description Value Unit Range Abnormal Flag Note LastModifiedBy Organization Detail LastModifiedTime 11/03/19 23 11/02/2022 CT, maxil lofac ial, w/o contr ast [place] [address] [place] [address] Naeyly pugh Name: SHANNON pugh : 1959 Patisy [...] Cortez newsome MD on 023 12:13 PM [facility] Radiology [facility] [address] [place] [address], [phone], 11/02/2022 15:10:59 Result Notes Documentation Provider Name and Address Organization Details Recorded Time Ct, Maxillofacial, W/o Contrast : [facility] [address] [place] [address] Patient Name: SHANNON REY Patient : 1960 [...] Interpreted By: Shady Crowder MD Rafael [facility] 11/02/2022 15:10:59 Problems Name Problem SNOMED Code Status Onset Date Resolution Date Notes Provider Name and Address Organization Details Recorded Time Chronic obstructive pulmonary disease 42398146 Active 2021 [facility] 2 08:18:10 Mendoza's esophagus 345460704 Active 2021 [facility] 2 08:21:51 Problem Notes None recorded. Procedures Surgical History Date Name Laterality Status Provider Name and Address Organization Details Recorded Time 11/03/19 23 Nasolaryngoscopy completed HERMAN LEMUS MD [address] [place] [address], [phone], [facility] 11/02/2022 10:53:29 09/20/19 23 Nasolaryngoscopy completed HERMAN LEMUS MD [address] [place] [address], [phone], [facility] 09/20/2022 11:31:01 06/22/20 22 Nasolaryngoscopy completed HERMAN LEMUS MD [address] [place] [address], [phone], [facility] 06/22/2022 12:11:14 Back Surgery completed [facility] 06/22/2022 08:19:58 section completed [facility] 06/22/2022 08:20:15 Imaging Results None recorded. Procedure Notes None recorded. Medical Equipment None Reported. Allergies Allergen ID Allergen Name Allergen Category Reaction Reaction Severity Criticality Documentation Date Start Date Code Code System Note Provider Name and Address Organization Details Recorded Time 183350 codeine medicatio n Not available Not available Not available 07/16/20162010 2670 RxNorm Comme nt: Creat ed By: Aryan Kim eated Date: 2010 2:55: 53 PM; Not Available Formerly [facility] 6 05:50:00 Medications Name Sig Start [...] 09/20/2022 65 /min 139 mm[Hg] 93 mm[Hg] [facility] 09/20/2022 10:22:31 Date Recorded Body height Body mass index (BMI) Body weight Provider Name and Address Organization Details Last Updated DateTime 09/20/2022 160.02 cm 29.2 kg/m2 39127.74 g [facility] 09/20/2022 10:07:20 Date Recorded Body height Body mass index (BMI) Body weight Heart rate Systolic blood pressure Diastolic blood pressure Provider Name and Address Organization Details Last Updated DateTime 3 160.02 cm 28.2 kg/m2 46610.1 9 g 77 /min 141 mm[Hg] 96 mm[Hg] [facility] 3 10:25:48 Date Recorded Body height Body mass index (BMI) Body weight Systolic blood pressure Diastolic blood pressure Provider Name and Address Organization Details Last Updated DateTime 06/22/2022 160.02 cm 29.4 kg/m2 33913.33 g 146 mm[Hg] 80 mm[Hg] [facility] 2 08:15:55 Date Recorded Body height Body mass index (BMI) Body weight Heart rate Systolic blood pressure Diastolic blood pressure Provider Name and Address Organization Details Last Updated DateTime 2 160.02 cm 29.2 kg/m2 74984.7 4 g 80 /min 153 mm[Hg] 99 mm[Hg] Westley Hilliard [facility] 10:36:48 Social History Question Answer Notes LastModified by Organizat All Def Digital Details LastModified Time Tobacco Smoking Status [facility] 08:19:16 When Did You [...] SNOMED-CT Code Diagnosis ICD10 Code Diagnosis Note [id number] HERMAN LEMUS MD [facility] [address] [place] [address] 06/22/2022 08:00:47 06/22/2022 12:23:28 Chronic hoarseness 1527211299 105 R49.0 Has a history of Mendoza's esophagus. Nasolaryng oscopy performed, no abnormalit ies other than edema and inflammati on of the larynx secondary to reflux. Currently on omeprazole . Will add Pepcid to take at bedtime and recommend adding sodium alginate. F/u 6wks Dysphagia 36533696 R13.1 0 Gastroesop hageal reflux disease without esophagitis 158699032 K21.9 History of Mendoza's esophagus 1503831614 9364450 Z87.19 [id number] [place] [address] [place] [phone] 08/03/2022 09:32:56 08/03/2022 13:03:22 Chronic hoarseness 9836762829 105 R49.0 Secondary to GERD. Improving w/ adding Pepcid, sodium alginate. Continue. Refill Pepcid. F/u 6wks Dysphagia 96379039 R13.1 0 Gastroesop hageal reflux disease without esophagitis 206115095 K21.9 History of Mendoza's esophagus 5413389251 9920944 Z87.19 [id number] HERMAN LEMUS MD [facility] [address] [place] [address] 09/20/2022 09:33:57 09/20/2022 11:47:16 Chronic hoarseness 2386639428 105 R49.0 Secondary to GERD. Improving w/ adding Pepcid to omeprazole , sodium alginate but recently had a flare-up. Nasolaryng oscopy repeated because of the worsening, only abnormalit y is mild edema of the vocal folds, no nodules or polyps. Could try voice therapy. We will set that up. Continue reflux therapy. F/u 6wks Dysphagia 56927525 R13.1 0 Gastroesop hageal reflux disease without esophagitis 492450979 K21.9 History of Mendoza's esophagus 6460422489 4239449 Z87.19 [id number] HERMAN LEMUS MD [facility] [address] [place] [phone] 11/02/2022 09:29:30 11/02/2022 11:15:10 Chronic hoarseness 2362812571 105 R49.0 Secondary to GERD. Was improving [...] afterward Gastroesop hageal reflux disease without esophagitis 498690045 K21.9 History of Mendoza's esophagus 2682422108 5878660 Z87.19 Health Concerns Section Related Observation LastModified by Organization Detai ls LastModified Time None Recorded Concern Status LastModified by Organization Details LastModified Time None Recorded Advance Directives Directive None Recorded Payers Insurance Date Sequence Insurance Name Policy Number Policy Vu Covered Member ID Vu Member ID Guarantor Name 11/09/2022 1 [place] [employer] [place] [employer] [id number] Shannon Rey [id number] Shannon Rey Notes Date Note Type Note [...] on tonsil 1.5mo ago HERMAN LEMUS MD [address] [place] [address], [phone], [facility] 06/22/2022 12:11:56 08/03/2022 text/html Chief Complaint: Chronic hoarsenessTiming:Durati on:Location:Severity: improvingQuality:Contex t: Hx of Mendoza's esophagusModifying Factors: omeprazole, Pepcid, sodium alginate - symptoms are improvingAssoc Signs and Symptoms: occasional throat clearing - improving, hoarseness has improved, fb sensation, dysphagia--foods not getting stuck, dry throat, coughing, has some PND, no hemoptysis, still has some heartburn HERMAN LEMUS MD [address] [place] [address], [phone], [facility] 08/03/2022 12:56:41 09/20/2022 text/html Chief Complaint: [...] heavy mucous, nasal congestion HERMAN LEMUS MD [address] [place] [address], [phone], [facility] 09/20/2022 11:31:41 11/02/2022 text/html Chief Complaint: [...] sore throat, nasal obstruction HERMAN LEMUS MD [address] [place] [address], [phone], [facility] 11/02/2022 10:54:05 OBGyn Episode No OBEpisode recorded.
[2025-02-17] MEDS: TET/DIPHTH/PERT-ADULT 0.5ML SYRINGE 0.5 ML IM (15:53)
[2025-02-17 16:01] VITALS: BP 127/72; PULSE 58; O2SAT 99
--- NOTE | 2025-02-17 16:14 | ED_ITS ---
Discharge Plan Disposition Patient Disposition: Home, Self-Care Prescriptions Prescriptions: New cephalexin 500 mg capsule 1,000 mg PO BID 5 Days Qty: 20 0RF cephalexin 500 mg capsule 1,000 mg PO BID 5 Days Qty: 20 0RF No Action omeprazole 40 mg capsule,delayed release(DR/EC) 40 mg PO DAILY lidocaine [Lidoderm] 5 % adhesive patch,medicated 1 patch topical DAILY PRN (Reason: Pain) Rx Instructions: leave on most painful area for up to 12 hrs cyanocobalamin (vitamin B-12) 1,000 mcg capsule 1,000 mcg PO DAILY Linzess 290 mcg capsule 290 mcg PO DAILY Qty: 30 12RF Rx Instructions: Please take 1 capsule daily (30 minutes prior to dinner) albuterol sulfate 90 mcg/actuation HFA aerosol inhaler 2 inh inhalation QID PRN (Reason: shortness of breath or wheezing) 90 Days Qty: 8.5 2RF budesonide-formoterol 160-4.5 mcg/actuation HFA aerosol inhaler 2 puff inhalation BID 90 Days Qty: 10.2 3RF Creon 36,000-114,000- 180,000 unit capsule,delayed release(DR/EC) 1 cap PO TID Qty: 300 2RF Rx Instructions: Take 1 capsule by mouth with meals and snacks, not to exceed 6 a day. aspirin [Adult Low Dose Aspirin] 81 mg tablet,delayed release (DR/EC) 81 mg PO DAILY fluticasone propionate [Flonase Allergy Relief] 50 mcg/actuation spray,suspension 2 spray intranasal DAILY PRN (Reason: ALLERGIES) Rx Instructions: administer into each nostril rosuvastatin [Crestor] 20 mg tablet 20 mg PO DAILY budesonide-formoterol [Symbicort] 160-4.5 mcg/actuation HFA aerosol inhaler 2 puff inhalation BID PRN (Reason: copd) meloxicam 15 mg tablet 15 mg PO DAILY Qty: 30 2RF tramadol 50 mg tablet 50 mg PO HS Qty: 30 2RF pregabalin [Lyrica] 50 mg capsule 50 mg PO HS Qty: 30 2RF Referrals Follow up/Referrals: Marylu Jeter APRN [Primary Care Provider, Medical] - See instructions Activity Restrictions/Add. Instructions Additional Instructions/Restrictions: Call your family doctor to establish care for this visit to the emergency department and schedule follow-up within 48 hours to ensure improvement. If you have any worsening of your condition or any other concerning signs or symptoms, return to the emergency department or your primary care doctor for further evaluation. Keflex twice daily for 5 days. Clinical Impressions Clinical Impression: Foreign body in left forearm Qualifiers: Encounter type: initial encounter Qualified Code(s): S50.852A - Superficial foreign body of left forearm, initial encounter Instructions Patient Instructions: DI for Laceration Repair Print Language Print Language: Indonesian Discharge ED Provider: Bipin Howard [facility] Adult HPI General Chief complaint: Wound/Laceration Stated complaint: A/o 02-17 1625 fishing hook in left wrist Time Seen by Provider: 02/17/25 15:33 Mode of Arrival: Ambulatory Source of Information: Patient Description of Symptoms (Recalled from ER Triage Doc. by RN): pt was messing around the shed and got a fishing hook caught in left wrist,pms intact History of Present Illness HPI narrative: Please note that above description of symptoms, in this electronic medical record under categorization of recalled from ER triage doctor by RN are reflective of an initial nursing assessment, however, is not reflective of my full history and physical exam that was personally taken and clarified. Consequentially, this preceding description of symptoms, which may include the patient's categorized chief complaint in the EMR, do not reflect my personal clinical impression, and the ultimate description of history of present illness and patient stated complaints should be deferred to this section of the note. Unless stated otherwise or congruent with this section of the note, additional signs, symptoms, or incongruence should be interpreted as inaccurate with my clinical impression. Related Data Home Medications ?Medication ?Instructions ?Recorded ?Confirmed aspirin 81 mg tablet,delayed 81 mg PO DAILY . 07/02/22 02/04/25 release (Adult Low Dose Aspirin) omeprazole 40 mg capsule,delayed 40 mg PO DAILY GERD 0 05/12/23 02/04/25 release cyanocobalamin (vitamin B-12) 1,000 mcg PO DAILY 10/0202/04/25 1,000 mcg capsule lidocaine 5 % topical patch 1 patch topical DAILY PRN Pain 10/02/24 02/04/25 (Lidoderm) budesonide-formoterol HFA 160 2 puff inhalation BID NC N copd 01/18/25 02/04/25 mcg-4.5 mcg/actuation aerosol inhaler (Symbicort) fluticasone propionate 50 2 spray intranasal DAILY PRN 01/18/25 02/04/25 mcg/actuation nasal ALLERGIES spray,suspension (Flonase Allergy Relief) rosuvastatin 20 mg tablet (Crestor) 20 mg PO DAILY . 0 01/18/25 02/04/25 Previous Rx's ?Medication ?Instructions ?Recorded linaclotide 290 mcg capsule 290 mcg PO DAILY #30 caps 10/02/24 (Linzess) albuterol sulfate 90 mcg/actuation 2 inh inhalation QI D PRN shortness 11/15/24 aerosol inhaler of breath or wheezing 90 day s #8.5 grams budesonide-formoterol HFA 160 2 puff inhalation BID 90 days 01/23/25 mcg-4.5 mcg/actuation aerosol #10.2 grams inhaler [id number]-bkjksji 1 cap PO TID #300 caps 01/30 36,000-114,000-180,000 unit capsule,delay rel (Creon) meloxicam 15 mg tablet 15 mg PO DAILY #30 tabs 01/20 02/13 pregabalin 50 mg capsule (Lyrica) 50 mg PO HS #30 caps 02/04/25 tramadol 50 mg tablet 50 mg PO HS #30 tabs 5 cephalexin 500 mg capsule 1,000 mg (2 x 500 mg) PO BID 5 02/17/25 days #20 caps cephalexin 500 mg capsule 1,000 mg (2 x 500 mg) PO BID 5 02/17/25 days #20 caps Allergies Allergy/AdvReac Type Severity Reaction Status Date / Time No Known Allergies Allergy Verified 01/22/25 09:47 [facility] Disclaimer: The information contained in this section may have been updated after the patient was seen, as this information can be updated by other users. Medical History Rash of mouth present on examination Throat irritation Pharyngitis Patient states she has taken azithromycin and Medrol with current medications without complications or reactions GERD (gastroesophageal reflux disease) Vocal cord edema Hoarseness Thyroid Nodule COPD (chronic obstructive pulmonary disease) Allergic rhinitis, unspecified Mild persistent asthma Pulmonary emphysema Nocturnal hypoxemia Stopped smoking with greater than 30 pack year history Dyspnea on exertion History of sleep apnea Surgical History H/O toe surgery History of eye surgery eyelid repair; bilateral Previous back surgery History of section History of colonoscopy Family History Other Cancer Diabetes Hypertension Social History Smoking Status: Never smoker alcohol intake: current alcohol intake frequency: holidays/special occasions only substance use type: denies use current occupational status: retired Travel in the last 8 weeks?: None household members: none housing: house number of children: 1 Have you lived/traveled outside US in past 30 days?: No Contact w/someone who lives/traveled outside US past 30 days?: No Exposure to someone with infectious disease in past 14 days?: No Do you have a fever (greater than 100.4 F or 38 C)?: No Have you tested positive for COVID-19?: No Exposed to someone with COVID-19 in past 14 days?: No Do you have a sore throat?: No Do you have a cough?: No Do you have any weakness?: No Do you have any diarrhea?: No Are you experiencing any unusual bleeding?: No Do you have any muscle aches/pain?: No Do you have any abdominal pain?: No Are you experiencing loss of taste or smell?: No Other Medical History Have you received the Flu Vaccine for this season: No Have you received the Pneumonia Vaccine: No ROS Obtained: Yes All systems reviewed & no additional complaints except as documented Physical Exam General General appearance: alert Head Head exam: atraumatic and normocephalic Eye Eye exam: Present normal appearance, PERRL and EOMI Neck Neck exam: Present normal inspection, full ROM and trachea midline Respiratory Respiratory exam: Absent respiratory distress, wheezes, stridor, accessory muscle use or prolonged expiratory phase Cardiovascular Cardiovascular exam: Present other (Pulses equal symmetric in upper and lower extremities) Abdominal Exam Abdominal exam: Present soft; Absent distention, tenderness or pulsatile mass Extremities Exam Extremities exam: Present other (Ragan in distal left upper extremity); Absent edema Neurological Exam Neurological exam: Present alert, oriented X3 and CN II-XII intact; Absent motor sensory deficit Skin Skin exam: Present warm and dry; Absent diaphoresis or erythema Medical Decision Making Medical Records Medical records reviewed: Yes I reviewed the patient's medical records. Screening: Per USPSTF and CDC recommendations, given the prevalence of disease in our region, it is our hospital?s policy to screen for HIV and viral Hepatitis for all patients aged 18 and over and those with ongoing risk factors. Nigel Inquiry Pt receiving controlled substance: No Nigel was queried for this patient: No Vital Signs: 02/17/25 15:38 02/17/25 15:42 02/17/25 16:01 Temperature 98.4 F Temperature Source Oral Pulse Rate 74 58 L Pulse Rate [Left Radial] 74 Respiratory Rate 20 Blood Pressure 153/91 H 127/72 Blood Pressure [Right Arm] 153/91 H Blood Pressure Mean 90 Blood Pressure Mean [Right Arm] 111 02 Sat by Pulse Oximetry 96 96 99 Oxygen Delivery Method Room Air Orders (Tests/Meds): ED MEDICATIONS Discontinued Medications Generic Name Dose Route Start Last Admin Trade Name Freq PRN Reason Stop Dose Admin Cephalexin HCl 1,000 mg 02/17/25 15:43 02/17/25 15:52 Cephalexin 500mg Capsule PO 02/17/25 15:44 1,000 mg ONCE ONE Administration Lidocaine HCl 20 ml 02/17/25 15:43 02/17/25 15:52 Lidocaine 1% 20ml Mdv IJ 02/17/25 15:44 20 ml ONCE ONE Administration Tetanus/Reduced Diphtheria/Acell Pertussis 0.5 ml 02/17/25 15:43 02/17/25 15:53 Tet/Diphth/Pert-Adult 0.5ml Syringe IM 02/17/25 15:44 0.5 ml .ONCE ONE Administration Medical Decision Narrative: 64-year-old female presenting with fishhook in her left upper extremity. She s tates she was cleaning out the shed and moved fishing abdias, fishhook came back and stuck in her skin in her distal forearm. Having pain, unable to pull out her self. Came in for further evaluation. Does not remember the last time she had a tetanus shot. History obtained with patient. On arrival, very clinically well, but obviously in pain. She has 3 prong fishhook with nehemiah buried in her distal upper extremity just superficial to her radial artery. Radial artery pulses bounding and intact on both sides of the fishhook. Differential includes uncomplicated foreign body, radial artery injury, among others. Anesthetized with 1% lidocaine without epinephrine. Cutdown technique to remove. Removed without issue. On further evaluation, stuck in subcutaneous tissues. Was able to blunt dissected down to radial artery and no obvious abnormalities. Washed out and left open with Xeroform overlying. Given tetanus and first dose of Keflex. Because patient at baseline without signs or symptoms of clinical decompensation, deemed appropriate for discharge. Results were relayed to patient who voiced understanding and were agreeable to outpatient management and follow up. I discussed my clinical impression with patient and answered all questions. At this time, the evidence for any other entities in the differential is insufficient to warrant any further testing or ED observation. This was explained as well. Advisory was given that persistent or worsening symptoms require further evaluation. I confirmed the understanding of this discussion. Control Operator disclaimer Much of this encounter note is an electronic butadiene convertor operator spoken language to printed text. Electronic butadiene convertor operator of the spoken language may permit errors. Although I have reviewed the note, some errors may still exist. Critical Care Critical Care Time Critical Care Time: No
[2025-02-17 16:27] VITALS: BP 148/70; PULSE 78; RESP 20; TEMP 36.8; O2SAT 98
== END 2025-02-17 16:28 | disposition home or self-care (01) ==
PROVIDERS: Emergency Provider Emergency Medicine; PCP Nurse Practitioner Family
DX: S50.852A Superficial foreign body of left forearm, initial encounter (principal); W45.8XXA Other foreign body or object entering through skin, initial encounter; Z23 Encounter for immunization
CPT/HCPCS: 10120; 90471; 90715; 99283; J2003

== ENCOUNTER 2025-03-14 08:47 | Outpatient (POV) | payer BC, SELFPAY ==
--- OUTSIDE RECORDS SUMMARY | 2025-03-14 08:57 | XMS_ITS | Clinical Summary ---
Author Organization Healthcare Address [address] [place] [address] Care Team Providers Care Paperhanger Assistant Name Role Phone Tuan Spivey MD Primary Care Provider [phone] Family History Medical History Relation Name Comments [...] 2011 UKY-Zoster Vaccines (1 of 2) 2011 [id number] Vaccine (4 - season) 2024 08/06/2021, 12/17/2020, 11/19/2020 UKY-Influenza Vaccine (#1) 2025 UKY-RSV Vaccine: 60+ Years or (1 [...] age to complete this topic Care Teams Paperhanger Assistant Relationship Specialty Start Date End Date Tuan Spivey MD [address] [place] [address] #1 #1 [place] [id number] PCP - General 01/02/21
--- OUTSIDE RECORDS SUMMARY | 2025-03-14 08:57 | XMS_ITS | Clinical Summary ---
[facility] Organization [facility] Address [address] [place] [address] Care Team Providers Care Gold Miner Name Role Phone Marylu Jeter APRN Primary Care Provider [phone] Family History Medical History Relation Name Comments Breast cancer Neg Hx Ovarian cancer Neg Hx Social History Tobacco Use Types Packs/Day Years Used Date Smoking Tobacco: Never Assessed Comments No Sex and Gender Information Value Date Recorded Sex Assigned at Not on file Legal Sex Female 10:01 AM EDT Gender Identity Not on file Sexual Orientation Not on file Plan of Treatment Health Maintenance Due Date Last Done Comments ANNUAL PHYSICAL 1960 Annual Gynecologic Pelvic an d Breast Exam 1960 HEPATITIS C SCREENING 1961 TDAP/TD VACCINES (1 - Tdap) 1980 COLOGUARD 2006 COLON CANCER SCREENING 5 YEA R SIGMOIDOSCOPY 2006 COLONOSCOPY [address] CANCER SCREENING [address] CT COLONOGRAPHY 2006 FECAL OCCULT BLOOD TEST 2006 FIT Testing (1 year) 2006 Pneumococcal Vaccine 50+ (1 of 1 - PCV) 2011 COVID-19 Vaccine (4 2023-2 5 season) 2024 08/06/2021, 12/17/2020, 11/19/2020 INFLUENZA VACCINE 05/22/2025 MAMMOGRAM 11/19/2026 11/19/2024, 10/21, 11/16/2022, Additional history exists ZOSTER VACCINE Completed 02/06/2024, 12/01/2023 Procedures Procedure Name Priority Date/Time Associated Diagnosis Comments MAMMO SCREENING DIGITAL TOMOSYNTHESIS BILATERAL W CAD Routine 11/19/2024 11:37 AM EDT Other screening mammogram from Last 3 Months or Most Recently Relevant to Health Maintenance Results * Mammo Screening Digital Tomosynthesis Bilateral With CAD (11/19/2024 11:37 AM EDT) Anatomical Region Laterality Modality Breast N/A Mammography 11/22/2024 10:4 1 AM EDT Impressions 11/22/2024 10:43 AM EDT No mammographic findings suspicious for malignancy. RECOMMENDATION: Continue annual screening mammography. BI-RADS CATEGORY 1, NEGATIVE. CAD was utilized. The standard false-negative rate of mammography is between 10% and 25%. Complex patterns or increased breast density will markedly elevate the false-negative rate of mammography. A letter, in lay terminology, with the results of this exam will be mailed to the patient. 11/22/2024 10:[address] Milvia Ruano MD on Narrative 11/22/2024 10:43 AM EDT BILATERAL SCREENING MAMMOGRAM WITH TOMOSYNTHESIS: HISTORY: The patient has no personal history or significant family history of breast cancer and no focal breast complaints at the time of screening mammography. TECHNIQUE: Bilateral CC and MLO low dose, full field digital mammographic images were obtained with tomosynthesis. COMPARISON: 01/05/2018, 04/30/2019, 07/24/2020, 10/26/2021, 11/16/2022, and 11/18/2023 FINDINGS: The breast tissue is almost entirely fatty in density. The fibroglandular pattern is stable. There are no suspicious masses, worrisome calcifications, nonsurgical areas of architectural distortion, or other secondary signs of malignancy. us Darshan Peoples MD IMG MAMMOGRAPHY ORDERABLES Fi nal Result from Last 3 Months or Most Recently Relevant to Health Maintenance Insurance [employer] Care Teams Gold Miner Relationship Specialty Start Date End Date Marylu Jeter APRN PCP - General Internal Medicine 02/13/19
--- OUTSIDE RECORDS SUMMARY | 2025-03-14 08:57 | XMS_ITS | Data Portability ---
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 Plan of Treatment Reminders Order Date Submit Date Provider Last Modified By Organization Details Last Modified Time Details Appointments None recorded. Lab None recorded. Referral None recorded. Procedures None recorded. Surgeries None recorded. Imaging None recorded. Medication Orders Pepcid 40 mg tablet 2022 023 [place] [address] [facility] #[id number], [address] [place], [place], [id number], 3 11:18:17 omeprazole 40 mg capsule,del ayed release 2022 023 [place] [address] [facility], [address] [place], [place], [id number], 3 11:18:17 Pepcid 40 mg tablet 2021 022 [place] [facility] #68702, [address] [place], [place], [id number], 2 12:56:44 Pepcid 40 mg tablet 2021 022 [place] [facility] #12099, [address] [place], [id number], 2 12:11:58 Patient TargetsNo targets recorded. Patient InstructionsNo instructions recorded. Reason for Referral None Reported. Results Created Date Observation Date Name Description Value Unit Range Abnormal Flag Note LastModifiedBy Organization Detail LastModifiedTime 11/03/19 23 11/02/2022 CT, maxil lofac ial, w/o contr ast [place] [address] [place] [address] Nayely pugh Name: SHANNON pugh : 1959 Patisy [...] Cortez newsome MD on 023 12:13 PM [email or web address] [facility] [address] [place] [address], [phone], 11/02/2022 15:10:59 Result Notes Documentation Provider Name and Address Organization Details Recorded Time Ct, Maxillofacial, W/o Contrast : [facility] [address] [place] [address] Patient Name: SHANNON REY Patient : 1960 [...] paranasal sinuses are clear. Interpreted By: Shady Crwoder MD Rafael Menard [facility] 11/02/2022 15:10:59 Problems Name Problem SNOMED Code Status Onset Date Resolution Date Notes Provider Name and Address Organization Details Recorded Time Chronic obstructive pulmonary disease 47620316 Active 2021 [facility] 2 08:18:10 Mendoza's esophagus 964691533 Active 2021 [facility] 2 08:21:51 Problem Notes None recorded. Procedures Surgical History Date Name Laterality Status Provider Name and Address Organization Details Recorded Time 11/03/19 23 Nasolaryngoscopy completed HERMAN LEMUS MD [address] [place] [address], [phone], [facility] 11/02/2022 10:53:29 09/20/19 23 Nasolaryngoscopy completed HERMAN LEMUS MD [address] [place] [address], [phone], [facility] 09/20/2022 11:31:01 06/22/20 22 Nasolaryngoscopy completed HERMAN LEMUS MD [address] [place] [address], [phone], [facility] 06/22/2022 12:11:14 Back Surgery completed [facility] 06/22/2022 08:19:58 section completed [facility] 06/22/2022 08:20:15 Imaging Results None recorded. Procedure Notes None recorded. Medical Equipment None Reported. Allergies Allergen ID Allergen Name Allergen Category Reaction Reaction Severity Criticality Documentation Date Start Date Code Code System Note Provider Name and Address Organization Details Recorded Time 303542 codeine medicatio n Not available Not available Not available 07/16/20162010 2670 RxNorm Comme nt: Creat ed By: Aryan Kim eated Date: 2010 2:55: 53 PM; Not Available [facility] 6 05:50:00 Medications Name Sig Start [...] Available Vitals Date Recorded Heart rate Systolic And Diastolic Provider Name and Address Organization Details Last Updated DateTime 09/20/2022 65 /min 139/93 mm[Hg] Westley Hilliard [facility] 09/20/2022 10:22:31 Date Recorded Body height Body mass index (BMI) Body weight Provider Name and Address Organization Details Last Updated DateTime 09/20/2022 160.02 cm 29.2 kg/m2 75497.74 g [facility] 09/20/2022 10:07:20 Date Recorded Body height Body mass index (BMI) Body weight Heart rate Systolic And Diastolic Provider Name and Address Organization Details Last Updated DateTime 11/02/2022 160.02 cm 28.2 kg/m2 10624.19 g 77 /min 141/96 mm[Hg] [facility] 11/02/2022 10:25:48 Date Recorded Body height Body mass index (BMI) Body weight Systolic And Diastolic Provider Name and Address Organization Details Last Updated DateTime 06/22/2022 160.02 cm 29.4 kg/m2 29813.33 g 146/80 mm[Hg] [facility] 06/22/2022 08:15:55 Date Recorded Body height Body mass index (BMI) Body weight Heart rate Systolic And Diastolic Provider Name and Address Organization Details Last Updated DateTime 08/03/2022 160.02 cm 29.2 kg/m2 56633.74 g 80 /min 153/99 mm[Hg] Westley Hilliard [facility] 08/03/2022 10:36:48 Social History Question Answer Notes LastModified by Organizat ion Details LastModified Time Tobacco Smoking Status Former Smoker Jen pimentel [facility] 06/22/2022 08:19:16 When Did You Quit Smoking? [...] SNOMED-CT Code Diagnosis ICD10 Code Diagnosis Note [id number] HERMAN LEMUS MD [facility] [address] [place] [address] 06/22/2022 08:00:47 06/22/2022 12:23:28 Chronic hoarseness 4504618213 105 R49.0 Has a history of Mendoza's esophagus. Nasolaryng oscopy performed, no abnormalit ies other than edema and inflammati on of the larynx secondary to reflux. Currently on omeprazole . Will add Pepcid to take at bedtime and recommend adding sodium alginate. F/u 6wks Dysphagia 52688019 R13.1 0 Gastroesop hageal reflux disease without esophagitis 307608252 K21.9 History of Mendoza's esophagus 7635326226 4859492 Z87.19 [id number] [place] [address] 08/03/2022 09:32:56 08/03/2022 13:03:22 Chronic hoarseness 5606216151 105 R49.0 Secondary to GERD. Improving w/ adding Pepcid, sodium alginate. Continue. Refill Pepcid. F/u 6wks Dysphagia 17197042 R13.1 0 Gastroesop hageal reflux disease without esophagitis 256538167 K21.9 History of Mendoza's esophagus 2234965042 2348196 Z87.19 [id number] H[place]RAN [place] [address] 09/20/2022 09:33:57 09/20/2022 11:47:16 Chronic hoarseness 9746414398 105 R49.0 Secondary to GERD. Improving w/ adding Pepcid to omeprazole , sodium alginate but recently had a flare-up. Nasolaryng oscopy repeated because of the worsening, only abnormalit y is mild edema of the vocal folds, no nodules or polyps. Could try voice therapy. We will set that up. Continue reflux therapy. F/u 6wks Dysphagia 17718378 R13.1 0 Gastroesop hageal reflux disease without esophagitis 947956323 K21.9 History of Mendoza's esophagus 8805459791 6990120 Z87.19 [id number] HERMAN [place] [address] 11/02/2022 09:29:30 11/02/2022 11:15:10 Chronic hoarseness 0935507149 105 R49.0 Secondary to GERD. Was improving [...] afterward Gastroesop hageal reflux disease without esophagitis 935408096 K21.9 History of Mendoza's esophagus 5046636987 3121225 Z87.19 Health Concerns Section Related Observation LastModified by Organization Detai ls LastModified Time None Recorded Concern Status LastModified by Organization Details LastModified Time None Recorded Advance Directives Directive None Recorded Payers Insurance Date Sequence Insurance Name Policy Number Policy Vu Covered Member ID Vu Member ID Guarantor Name 11/09/2022 1 [place] [employer] [place] [employer] [id number] Shannon Rey [id number] Shannon Rey Notes Date Note Type Note [...] on tonsil 1.5mo ago HERMAN LEMUS MD [facility] [place], [address], [facility] 06/22/2022 12:11:56 08/03/2022 text/html Chief Complaint: Chronic hoarsenessTiming:Durati on:Location:Severity: improvingQuality:Contex t: Hx of Mendoza's esophagusModifying Factors: omeprazole, Pepcid, sodium alginate - symptoms are improvingAssoc Signs and Symptoms: occasional throat clearing - improving, hoarseness has improved, fb sensation, dysphagia--foods not getting stuck, dry throat, coughing, has some PND, no hemoptysis, still has some heartburn MD [place], [address], [facility] 08/03/2022 12:56:41 09/20/2022 text/html Chief Complaint: Chronic hoarsenessTiming: symptoms have returned for the last 2 daysDuration: constantLocation:Sujeyi ty: improved but has returned not associated [...] heavy mucous, nasal congestion HERMAN LEMUS MD [address] [place] [address], [phone], [facility] 09/20/2022 11:31:41 11/02/2022 text/html Chief Complaint: [...] sore throat, nasal obstruction HERMAN LEMUS MD [address] [place] [address], [phone], [facility] 11/02/2022 10:54:05 OBGyn Episode No OBEpisode recorded.
[2025-03-14 09:31] VITALS: BP 113/78; PULSE 67; RESP 14; O2SAT 95; BMI 28.0
--- NOTE | 2025-03-14 10:06 | EXP.PAIN.SOA ---
[facility] Disclaimer: The information contained in this section may have been updated after the patient was seen, as this information can be updated by other users. Medical History Rash of mouth present on examination Throat irritation Pharyngitis Patient states she has taken azithromycin and Medrol with current medications without complications or reactions GERD (gastroesophageal reflux disease) Vocal cord edema Hoarseness Thyroid Nodule COPD (chronic obstructive pulmonary disease) Allergic rhinitis, unspecified Mild persistent asthma Pulmonary emphysema Nocturnal hypoxemia Stopped smoking with greater than 30 pack year history Dyspnea on exertion History of sleep apnea Surgical History H/O toe surgery History of eye surgery eyelid repair; bilateral Previous back surgery History of section History of colonoscopy Family History Other Cancer Diabetes Hypertension Social History Smoking Status: Never smoker alcohol intake: current alcohol intake frequency: holidays/special occasions only substance use type: denies use current occupational status: other Travel in the last 8 weeks?: None household members: none housing: house number of children: 1 PM Subjective & Objective Subjective Subjective:: Patient is a pleasant 64-year-old female who presents today for follow-up. Today she rates her pain a 1 out of 10 however does state with prolonged positioning it will go to an 8 out of 10. Patient denies any new falls or injuries. She states it is still all in her right knee. Patient states she did end up seeing orthopedics who were stating that they really thought she needed a knee replacement. Patient was submitted for hyaluronic acid injections however she did get a letter in the mail from her insurance denying this. Patient states that it was requesting additional interventions. Patient is interested in any help we may be able to provide. Patient is currently managed with tramadol 50 mg at bedtime, meloxicam 15 mg daily and pregabalin 50 mg at bedtime along with compounded cream. She denies any side effects. Her Nigel has been reviewed and is appropriate. Review of Systems: General: No recent weight changes, no fever, no sleep disturbances Respiratory: No cough, no shortness of air, no recurring pulmonary infections Cardiovascular/peripheral vascular: No chest pain, no palpitations, no edema, no shortness of breath Gastrointestinal: No new onset incontinence, normal bowel movements reported Genitourinary: No new onset incontinence Musculoskeletal: Right knee pain Psychiatric: [Normal mood/affect] Neurological: [Denies weakness in extremities], [denies balance issues] Pain at rest (0-10 scale): 8 Objective Objective:: Physical Exam: General: Alert and oriented x3, no acute distress, pleasant and cooperative Lungs: Respirations even and unlabored, symmetrical chest expansion Eyes: PERRL Musculoskeletal: Flexion and extension of right knee somewhat guarded secondary to pain, [antalgic gait noted] Neurological: Speech clear, no gross sensory deficit Has patient had previous pain injection?: No Conservative treatment options previously tried: Home exercise plan Length of treatment: Longer than 12 weeks Meds Home Medications and Allergies Home Medications ?Medication ?Instructions ?Recorded ?Confirmed ?Type aspirin 81 mg tablet,delayed 81 mg PO DAILY . 07/02/22 03/14/25 History release (Adult Low Dose Aspirin) cyanocobalamin (vitamin B-12) 1,000 mcg PO DAILY 10/02/24 03/14/25 History 1,000 mcg capsule lidocaine 5 % topical patch 1 patch topical DAILY PRN Pain 10/02/24 03/14/25 History (Lidoderm) linaclotide 290 mcg capsule 290 mcg PO DAILY #30 caps 10/02/24 03/14/25 Rx (Linzess) albuterol sulfate 90 mcg/actuation 2 inh inhalation QID PRN shortness 11/15/24 03/14/25 Rx aerosol inhaler of breath or wheezing 90 days #8.5 grams budesonide-formoterol HFA 160 2 puff inhalation BID PRN copd 01/18/25 03/14/25 History mcg-4.5 mcg/actuation aerosol inhaler (Symbicort) fluticasone propionate 50 2 spray intranasal DAILY PRN 01/18/25 03/14/25 History mcg/actuation nasal ALLERGIES spray,suspension (Flonase Allergy Relief) budesonide-formoterol HFA 160 2 puff inhalation BID 90 days 01/23/25 03/14/25 Rx mcg-4.5 mcg/actuation aerosol #10.2 grams inhaler chwsch-odbfkzim-zwugonz 1 cap PO TID #300 caps 01/30/25 03/14/25 Rx 36,000-114,000-180,000 unit capsule,delay rel (Creon) meloxicam 15 mg tablet 15 mg PO DAILY #30 tabs 02/04/25 03/14/25 Rx pregabalin 50 mg capsule (Lyrica) 50 mg PO HS #30 caps 02/04/25 03/14/25 Rx tramadol 50 mg tablet 50 mg PO HS #30 tabs 02/04/25 03/14/25 Rx cephalexin 500 mg capsule 1,000 mg (2 x 500 mg) PO BID 5 02/17/25 03/14/25 Rx days #20 caps cephalexin 500 mg capsule 1,000 mg (2 x 500 mg) PO BID 5 02/17/25 03/14/25 Rx days #20 caps rosuvastatin 20 mg tablet (Crestor) 20 mg PO DAILY . #90 tabs 02/18/25 03/14/25 Rx omeprazole 40 mg capsule,delayed 40 mg PO DAILY GERD #90 caps 03/04/25 03/14/25 Rx release New Prescriptions to Start Prescriptions: Allergies Allergy/AdvReac Type Severity Reaction Status Date / Time No Known Allergies Allergy Verified 01/22/25 09:47 Assessment and Plan *Assessment and plan (1) Chronic pain of right knee: Status: Acute Category: Medical Code(s): M25.561 - Pain in right knee; G89.29 - Other chronic pain Plan I did discuss with the patient over what all conservative therapy she has done. Patient is ongoing doing weight reduction including walking daily. I will order aquatic therapy for her right knee pain. I did also discuss with the patient that we will give her physician guided exercise handouts today for her to start working on at home over the next 4 weeks. I will make sure she does have refills on her pregabalin, tramadol and meloxicam. Patient will return to clinic in 1 month for reevaluation of symptoms and plan of care. Patient has been instructed to contact the clinic with any concerns before the next appointment. Dr. Paniagua has reviewed this note and agrees with this plan of care. This note was dictated using voice recognition software and make contain errors or omissions. All injections are used with Lidocaine, Bupivacaine and dexamethasone. Occasionally urine drug screen is needed to verify patient's compliance with our office pain contract. This is ordered based off specific treatments related to chronic pain with the potential to abuse certain medications.
== END 2025-03-14 23:59 | disposition home or self-care (01) ==
PROVIDERS: PCP Nurse Practitioner Family; Visit Provider Nurse Practitioner Family
DX: M25.561 Pain in right knee (principal); G89.29 Other chronic pain; Z79.891 Long term (current) use of opiate analgesic
CPT/HCPCS: 99212; G0463

== ENCOUNTER 2025-04-11 08:52 | Outpatient (POV) | payer BC, SELFPAY ==
[2025-04-11 09:15] VITALS: BP 125/80; PULSE 63; RESP 14; O2SAT 95; BMI 27.3
--- OUTSIDE RECORDS SUMMARY | 2025-04-11 09:15 | XMS_ITS | Clinical Summary ---
Author Organization Healthcare Address [address] [place] [address] Care Team Providers Care Cap Cutter Name Role Phone Tuan Spivey MD Primary Care Provider [phone] Family History Medical History Relation Name Comments [...] 2011 UKY-Zoster Vaccines (1 of 2) 2011 [id number] Vaccine (4 - season) 2024 08/06/2021, 12/17/2020, [...] age to complete this topic Care Teams Cap Cutter Relationship Specialty Start Date End Date Tuan Spivey MD [address] [place] [address] [address] [place] [address] PCP - General 01/02/21
--- OUTSIDE RECORDS SUMMARY | 2025-04-11 09:15 | XMS_ITS | Clinical Summary ---
[facility] [address] [place] [address] Care Team Providers Care Ben Day Artist Name Role Phone Marylu Jeter APRN Primary Care Provider [phone] Family History Medical History Relation Name Comments [...] Maintenance Insurance [employer] Care Teams Ben Day Artist Relationship Specialty Start Date End Date Marylu Jeter APRN PCP - General Internal Medicine 02/13/19
--- NOTE | 2025-04-11 10:32 | EXP.PAIN.SOA ---
[facility] Disclaimer: The information contained in this section may have been updated after the patient was seen, as this information can be updated by other users. Medical History Rash of mouth present on examination Throat irritation Pharyngitis Patient states she has taken azithromycin and Medrol with current medications without complications or reactions GERD (gastroesophageal reflux disease) Vocal cord edema Hoarseness Thyroid Nodule COPD (chronic obstructive pulmonary disease) Allergic rhinitis, unspecified Mild persistent asthma Pulmonary emphysema Nocturnal hypoxemia Stopped smoking with greater than 30 pack year history Dyspnea on exertion History of sleep apnea Surgical History H/O toe surgery History of eye surgery eyelid repair; bilateral Previous back surgery History of section History of colonoscopy Family History Other Cancer Diabetes Hypertension Social History Smoking Status: Never smoker alcohol intake: current alcohol intake frequency: holidays/special occasions only substance use type: denies use current occupational status: other Travel in the last 8 weeks?: None household members: none housing: house number of children: 1 PM Subjective & Objective Subjective Subjective:: Patient is a pleasant 64-year-old female who presents today for 1 month follow-up. Today she rates her pain a 1 out of 10. She does state from her last visit her knee has actually improved and she does feel like it is a combination of weight loss but also supplementing in her knee that is raw and organic into her diet. Patient is also doing physical therapy and feels like this is helping a little bit. Patient states that she really feels like this is making a difference. Patient is currently managed with meloxicam 15 mg daily, tramadol 50 mg at bedtime, pregabalin 50 mg at bedtime and compounded cream from our office. She denies any side effects. Her Nigel has been reviewed and is appropriate. Review of Systems: General: No recent weight changes, no fever, no sleep disturbances Respiratory: No cough, no shortness of air, no recurring pulmonary infections Cardiovascular/peripheral vascular: No chest pain, no palpitations, no edema, no shortness of breath Gastrointestinal: No new onset incontinence, normal bowel movements reported Genitourinary: No new onset incontinence Musculoskeletal: Right knee pain Psychiatric: [Normal mood/affect] Neurological: [Denies weakness in extremities], [denies balance issues] Pain at rest (0-10 scale): 1 Objective Objective:: Physical Exam: General: Alert and oriented x3, no acute distress, pleasant and cooperative Lungs: Respirations even and unlabored, symmetrical chest expansion Eyes: PERRL Musculoskeletal: Flexion and extension of right knee somewhat guarded secondary to pain, [antalgic gait noted] Neurological: Speech clear, no gross sensory deficit Has patient had previous pain injection?: No Conservative treatment options previously tried: Home exercise plan Length of treatment: Longer than 12 weeks and Physical Therapy Length of treatment: Ongoing Meds Home Medications and Allergies Home Medications ?Medication ?Instructions ?Recorded ?Confirmed ?Type aspirin 81 mg tablet,delayed 81 mg PO DAILY . 07/02/22 04/11/25 History release (Adult Low Dose Aspirin) cyanocobalamin (vitamin B-12) 1,000 mcg PO DAILY 10/02/24 04/11/25 History 1,000 mcg capsule lidocaine 5 % topical patch 1 patch topical DAILY PRN Pain 10/02/24 04/11/25 History (Lidoderm) linaclotide 290 mcg capsule 290 mcg PO DAILY #30 caps 10/02/24 04/11/25 Rx (Linzess) albuterol sulfate 90 mcg/actuation 2 inh inhalation QID PRN shortness 11/15/24 04/11/25 Rx aerosol inhaler of breath or wheezing 90 days #8.5 grams budesonide-formoterol HFA 160 2 puff inhalation BID PRN copd 01/18/25 04/11/25 History mcg-4.5 mcg/actuation aerosol inhaler (Symbicort) fluticasone propionate 50 2 spray intranasal DAILY PRN 01/18/25 04/11/25 History mcg/actuation nasal ALLERGIES spray,suspension (Flonase Allergy Relief) budesonide-formoterol HFA 160 2 puff inhalation BID 90 days 01/23/25 04/11/25 Rx mcg-4.5 mcg/actuation aerosol #10.2 grams inhaler [id number]-[id number] 1 cap PO TID #300 caps 01/30/25 04/11/25 Rx 36,000-114,000-180,000 unit capsule,delay rel (Creon) cephalexin 500 mg capsule 1,000 mg (2 x 500 mg) PO BID 5 02/17/25 04/11/25 Rx days #20 caps cephalexin 500 mg capsule 1,000 mg (2 x 500 mg) PO BID 5 02/17/25 04/11/25 Rx days #20 caps rosuvastatin 20 mg tablet (Crestor) 20 mg PO DAILY . #90 tabs 02/18/25 04/11/25 Rx omeprazole 40 mg capsule,delayed 40 mg PO DAILY GERD #90 caps 03/04/25 04/11/25 Rx release meloxicam 15 mg tablet 15 mg PO DAILY #30 tabs 04/01/25 04/11/25 Rx pregabalin 50 mg capsule (Lyrica) 50 mg PO HS #30 caps 04/01/25 04/11/25 Rx tramadol 50 mg tablet 50 mg PO HS #30 tabs 04/01/25 04/11/25 Rx New Prescriptions to Start Prescriptions: Allergies Allergy/AdvReac Type Severity Reaction Status Date / Time No Known Allergies Allergy Verified 01/22/25 09:47 Assessment and Plan *Assessment and plan (1) Chronic pain of right knee: Status: Acute Category: Medical Code(s): M25.561 - Pain in right knee; G89.29 - Other chronic pain Plan I will make sure that she does have refills of her medication and we will follow-up with her in 2 months. Patient agrees with this plan of care. Patient has been instructed to contact the clinic with any concerns before the next appointment. Dr. Paniagua has reviewed this note and agrees with this plan of care. This note was dictated using voice recognition software and make contain errors or omissions. All injections are used with Lidocaine, Bupivacaine and dexamethasone. Occasionally urine drug screen is needed to verify patient's compliance with our office pain contract. This is ordered based off specific treatments related to chronic pain with the potential to abuse certain medications.
== END 2025-04-11 23:59 | disposition home or self-care (01) ==
PROVIDERS: PCP Nurse Practitioner Family; Visit Provider Nurse Practitioner Family
DX: M25.561 Pain in right knee (principal); G89.29 Other chronic pain; Z79.1 Long term (current) use of non-steroidal anti-inflammatories (NSAID); Z79.891 Long term (current) use of opiate analgesic; Z79.899 Other long term (current) drug therapy
CPT/HCPCS: 99212; G0463

== ENCOUNTER 2025-04-16 08:00 | Outpatient (RCR) | payer BC, SELFPAY | END 2025-04-16 23:59 | disposition home or self-care (01) | LOC: PT 08:00 | PROVIDERS: PCP Nurse Practitioner Family; Visit Provider Orthopaedic Surgery Adult Reconstructive Orthopaedic Surgery | DX: M17.11 Unilateral primary osteoarthritis, right knee (principal) | CPT/HCPCS: 97035; 97110; 97161 ==

== ENCOUNTER 2025-05-20 09:00 | Outpatient (RCR) | payer BC, SELFPAY | END 2025-05-20 23:59 | disposition home or self-care (01) | LOC: PT 09:00 | PROVIDERS: PCP Nurse Practitioner Family; Visit Provider Orthopaedic Surgery Adult Reconstructive Orthopaedic Surgery | DX: M25.561 Pain in right knee (principal) | CPT/HCPCS: 97014; 97035; 97110; 97530; G0283 ==

== ENCOUNTER 2025-05-23 08:54 | Outpatient (RCR) | payer BC, SELFPAY | END 2025-05-23 23:59 | disposition home or self-care (01) | LOC: PT 08:54 | PROVIDERS: PCP Nurse Practitioner Family; Visit Provider Orthopaedic Surgery Adult Reconstructive Orthopaedic Surgery | DX: M17.11 Unilateral primary osteoarthritis, right knee (principal) | CPT/HCPCS: 97110; 97530 ==

== ENCOUNTER 2025-08-19 07:48 | Outpatient (CLI) | payer BC, SELFPAY ==
--- OUTSIDE RECORDS SUMMARY | 2025-08-19 07:51 | XMS_ITS | Clinical Summary ---
[facility] Address [address] [place] [address] Care Team Providers Care Automatic Blocker Name Role Phone Marylu Jeter APRN Primary Care Provider [phone] Family History Medical History Relation Name Comments [...] 50+ (1 of 1 - PCV) 2011 INFLUENZA VACCINE 03/22/2025 MAMMOGRAM 11/19/2026 11/19/2024, 10/21, 11/16/2022, Additional history [...] Most Recently Relevant to [place] [address] [place] [address] [facility] Care Teams Automatic Blocker Relationship Specialty Start Date End Date Marylu Jeter APRN PCP - General Internal Medicine 02/13/19
--- OUTSIDE RECORDS SUMMARY | 2025-08-19 07:51 | XMS_ITS | Data Portability ---
Author Organization [facility] [place] [facility] Address [address] [place] [address] Care Team Providers Care Kettle Chipper Name Role Phone JORDON BLANK Primary Care Provider Assessment No assessment recorded. Plan of Treatment Reminders Order Date Submit Date Provider Last Modified By Organization Details Last Modified Time Details Appointments None recorded. Lab None recorded. Referral None recorded. Procedures None recorded. Surgeries None recorded. Imaging None recorded. Medication Orders Pepcid 40 mg tablet 2022 023 [place] [address] [facility][id number], [address] [place], [place], [id number], 3 11:18:17 omeprazole 40 mg capsule,del ayed release 2022 023 [place] [address] [id number], [address] [place], [place], [id number], 3 11:18:17 Pepcid 40 mg tablet 2021 022 [place] [facility][id number], [address] [place], [place], [id number], 2 12:56:44 Pepcid 40 mg tablet 2021 022 [place] [email or web address] #[id number], [address] [place], [id number], 2 12:11:58 Patient TargetsNo targets recorded. Patient InstructionsNo instructions recorded. Reason for Referral None Reported. Results Created Date Observation Date Name Description Value Unit Range Abnormal Flag Note LastModifiedBy Organization Detail LastModifiedTime 11/03/19 23 11/02/2022 CT, maxil lofac ial, w/o contr ast [place] [address] [place] [address] Nayely pugh Name: SHANNON pugh : 1959 [...] Cortez newsome MD on 023 12:13 PM [email or web address] [facility] Radiology [facility] [address] [place] [address], [phone], 11/02/2022 15:10:59 Result Notes Documentation Provider Name and Address Organization Details Recorded Time Ct, Maxillofacial, W/o Contrast : [facility] [address] [place] [address] Patient Name: SHANNON REY Patient : 1960 [...] Interpreted By: Shady Crowder MD Rafael Menard [facility] 11/02/2022 15:10:59 Problems Name Problem SNOMED Code Status Onset Date Resolution Date Notes Provider Name and Address Organization Details Recorded Time Chronic obstructive pulmonary disease 22760375 Active 2021 [facility] 2 08:18:10 Mendoza's esophagus 557179595 Active 2021 [facility] 2 08:21:51 Problem Notes None recorded. Procedures Surgical History Date Name Laterality Status Provider Name and Address Organization Details Recorded Time 11/03/19 23 Nasolaryngoscopy completed HERMAN LEMUS MD [address] [place] [address], [phone], [facility] 11/02/2022 10:53:29 09/20/19 23 Nasolaryngoscopy completed HERMAN LEMUS MD [address] [place] [address], [phone], [facility] 09/20/2022 11:31:01 06/22/20 22 Nasolaryngoscopy completed HERMAN LEMUS MD [address] [place] [address], [phone], [facility] 06/22/2022 12:11:14 Back Surgery completed [facility] 06/22/2022 08:19:58 section completed [facility] 06/22/2022 08:20:15 Imaging Results None recorded. Procedure Notes None recorded. Medical Equipment None Reported. Allergies Allergen ID Allergen Name Allergen Category Reaction Reaction Severity Criticality Documentation Date Start Date Code Code System Note Provider Name and Address Organization Details Recorded Time 729590 codeine medicatio n Not available Not available Not available 07/16/20162010 2670 RxNorm Comme nt: Creat ed By: Aryan Kim eated Date: 2010 2:55: 53 PM; Not Available [facility] 6 05:50:00 Medications Name Sig Start Date [...] 09/20/2022 65 /min 139/93 mm[Hg] Westley Hilli[facility] 09/20/2022 10:22:31 Date Recorded Body height Body mass index (BMI) Body weight Provider Name and Address Organization Details Last Updated DateTime 09/20/2022 160.02 cm 29.2 kg/m2 76831.74 g [facility] 09/20/2022 10:07:20 Date Recorded Body height Body mass index (BMI) Body weight Heart rate Systolic And Diastolic Provider Name and Address Organization Details Last Updated DateTime 11/02/2022 160.02 cm 28.2 kg/m2 48175.19 g 77 /min 141/96 mm[Hg] [facility] 11/02/2022 10:25:48 Date Recorded Body height Body mass index (BMI) Body weight Systolic And Diastolic Provider Name and Address Organization Details Last Updated DateTime 06/22/2022 160.02 cm 29.4 kg/m2 97490.33 g 146/80 mm[Hg] [facility] 06/22/2022 08:15:55 Date Recorded Body height Body mass index (BMI) Body weight Heart rate Systolic And Diastolic Provider Name and Address Organization Details Last Updated DateTime 08/03/2022 160.02 cm 29.2 kg/m2 75863.74 g 80 /min 153/99 mm[Hg] Westley Hilliard [facility] 08/03/2022 10:36:48 Social History Question Answer Notes LastModified by Organizat ion Details LastModified Time Tobacco Smoking Status Former Smoker Jen pimentel [facility] 06/22/2022 08:19:16 When Did You [...] Diagnosis SNOMED-CT Code Diagnosis ICD10 Code Diagnosis IMO Codes Diagnosis Note [id number] HERMAN LEMUS MD [facility] [address] [place] [address] 06/22/2022 08:00:47 06/22/2022 12:23:28 Chronic hoarseness 3995129059 105 R49.0 Has a history of Mendoza's esophagus. Nasolaryng oscopy performed, no abnormalit ies other than edema and inflammati on of the larynx secondary to reflux. Currently on omeprazole . Will add Pepcid to take at bedtime and recommend adding sodium alginate. F/u 6wks Dysphagia 45233733 R13.1 0 Gastroesop hageal reflux disease without esophagitis 736485588 K21.9 History of Mendzoa's esophagus 6215461197 0147114 Z87.19 [id number] HERMAN LEMUS MD [facility] [address] [place] [address] 08/03/2022 09:32:56 08/03/2022 13:03:22 Chronic hoarseness 8208416882 105 R49.0 Secondary to GERD. Improving w/ adding Pepcid, sodium alginate. Continue. Refill Pepcid. F/u 6wks Dysphagia 95188256 R13.1 0 Gastroesop hageal reflux disease without esophagitis 208284391 K21.9 History of Mendoza's esophagus 8727277165 3601151 Z87.19 [id number] HERMAN LEMUS MD [facility] [address] [place] [address] 1 09/20/2022 09:33:57 09/20/2022 11:47:16 Chronic hoarseness 7557360382 105 R49.0 Secondary to GERD. Improving w/ adding Pepcid to omeprazole , sodium alginate but recently had a flare-up. Nasolaryng oscopy repeated because of the worsening, only abnormalit y is mild edema of the vocal folds, no nodules or polyps. Could try voice therapy. We will set that up. Continue reflux therapy. F/u 6wks Dysphagia 87589829 R13.1 0 Gastroesop hageal reflux disease without esophagitis 048554373 K21.9 History of Mendoza's esophagus 6455120969 9517630 Z87.19 [id number] HERMAN LEMUS MD [facility] [address] [place] [address] 1 11/02/2022 09:29:30 11/02/2022 11:15:10 Chronic hoarseness 5762163985 105 R49.0 Secondary to GERD. Was improving [...] afterward Gastroesop hageal reflux disease without esophagitis 735418593 K21.9 History of Mendoza's esophagus 3812926779 9599640 Z87.19 Health Concerns Section Related Observation LastModified by Organization Detai ls LastModified Time None Recorded Concern Status LastModified by Organization Details LastModified Time None Recorded Advance Directives Directive None Recorded Payers Insurance Date Sequence Insurance Name Policy Number Policy Vu Covered Member ID Vu Member ID Guarantor Name 11/09/2022 1 [employer] [employer] [place] [employer] 104 Shannon Rey [id number] Shannon Rey Notes Date Note Type Note [...] on tonsil 1.5mo ago HERMAN LEMUS MD [address] [place] [address] [place], [address], [facility] 06/22/2022 12:11:56 08/03/2022 text/html Chief Complaint: Chronic hoarsenessTiming:Durati on:Location:Severity: improvingQuality:Contex t: Hx of Mendoza's esophagusModifying Factors: omeprazole, Pepcid, sodium alginate - symptoms are improvingAssoc Signs and Symptoms: occasional throat clearing - improving, hoarseness has improved, fb sensation, dysphagia--foods not getting stuck, dry throat, coughing, has some PND, no hemoptysis, still has some heartburn HERMAN LEMUS MD [facility], [address], [facility] 08/03/2022 12:56:41 09/20/2022 text/html Chief Complaint: [...] mucous, nasal congestion HERMAN LEMUS MD [address] [place] [address], [phone], [facility] 09/20/2022 11:31:41 11/02/2022 text/html Chief Complaint: [...] sore throat, nasal obstruction HERMAN LEMUS MD [address] [place], [address], [facility] 11/02/2022 10:54:05 OBGyn Episode No OBEpisode recorded.
--- OUTSIDE RECORDS SUMMARY | 2025-08-19 07:51 | XMS_ITS | Clinical Summary ---
Author Organization Healthcare Address [address] [place] [address] Care Team Providers Care Diabetes Nurse Name Role Phone Tuan Spivey MD Primary Care Provider [phone] Family History Medical History Relation Name Comments [...] Date Last Done Comments [facility]-Depression Screening 1960 [facility]-/Child/Adol SDOH Screenings 1960 [facility]- SDOH Screenings 1979 [facility]-Adult SDOH Screenings 1979 [facility]-DTaP,Tdap,and Td Vaccines (1 - Tdap) 1980 [facility]-Pap Smear 1982 [facility]-Cervical Cancer Screening 1991 [facility]-HPV/Cotest 1991 CT Colonography 2006 Colonoscopy 2006 FIT-DNA 2006 FIT 2006 FOBT 2006 Sigmoidoscopy 2006 [facility]-Colorectal Cancer Screening 2006 [facility]-Pneumococcal Vaccine: 50+ Years (1 of 1 - PCV) 2011 [facility]-Zoster Vaccines (1 of 2) 2011 [id number] Vaccine (4 - season) 2025 08/06/2021, 12/17/2020, 11/19/2020 [facility]-Influenza Vaccine (#1) 2025 [facility]-RSV Vaccine: 60+ Years or (1 - 1-dose 75+ series) 2036 [facility]-Breast Cancer Screening Discontinued 02/2022, 10/26/2021, 07/24/2020, Additional history exists HPV Vaccines (No Doses Required) Completed [facility]-HIB Vaccines Aged Out No longer e [...] age to complete this topic Care Teams Diabetes Nurse Relationship Specialty Start Date End Date Tuan Spivey MD [address] [place] [address] #1 #1 NICKI [place] [address] PCP - General 01/02/21
--- NOTE | 2025-08-19 08:45 | CT_ITS ---
FINAL REPORT TECHNIQUE: Thin section axial CT images with coronal and sagittal reformats were performed after the administration of IV contrast. Precontrast images were also obtained. This study was performed with techniques to keep radiation doses as low as reasonably achievable (ALARA). Individualized dose reduction techniques using automated exposure control or adjustment of mA and/or kV according to the patient''s size were employed. CLINICAL HISTORY: evaluation for treatment for sore throat chronic COMPARISON: 12/10/2024 FINDINGS: Nasopharynx, oropharynx, epiglottis, and larynx are unremarkable. The thyroid is again noted to be mildly enlarged with bilateral thyroid nodules, not significantly changed. Salivary glands are unremarkable. There is no lymphadenopathy. Limited evaluation of the lung apices reveals emphysema. There are no air-fluid levels in the paranasal sinuses. No acute osseous abnormality identified. IMPRESSION: No acute abnormality in the soft tissues of the neck. Enlarged thyroid with bilateral thyroid nodules. Reviewed, Interpreted and Dictated by Ruby Andrews MD Transcribed by Kenia Watson Authenticated and [facility]
[2025-08-19 08:49] LABS: Blood Urea Nitrogen 15 mg/dl (7-17); Creatinine,Serum 0.80 mg/dl (0.52-1.04); Estimated Glomerular Filt Rate 72 ml/min (>60); GFR (African American) 87 ML/MIN (>60)
[2025-08-19] MEDS: IOPAMIDOL-370 (76%);100ML BOTTLE 75 ML IV (09:14)
[2025-08-19] MEDS: SODIUM CHLORIDE 0.9% 10ML SYR (RAD ONLY) 10 ML IV (09:14)
== END 2025-08-19 23:59 | disposition home or self-care (01) ==
PROVIDERS: PCP Nurse Practitioner Family; Visit Provider Nurse Practitioner
DX: E04.2 Nontoxic multinodular goiter (principal); J02.9 Acute pharyngitis, unspecified; R09.89 Other specified symptoms and signs involving the circulatory and respiratory systems; R13.10 Dysphagia, unspecified; J39.2 Other diseases of pharynx
CPT/HCPCS: 70492; 82565; 84520; Q9967